=== PATIENT | male | born 1960 | race Caucasian/White ===

== ENCOUNTER 2016-03-19 18:20 | Inpatient (IN) | payer OTHER, MEDICAID ==
[~2016-03-19] VITALS: Ht 167.6 cm; Wt 68.5 kg
[~2016-03-19 18:20] MED LIST: OLAN10TA3 PO; QUET200T PO; SINE25100 PO
[2016-03-19 19:02] LABS: BASOPHILS # (AUTO) 0.16 K/uL (0.00-0.20); BASOPHILS % (AUTO) 1.6 % (0.0-2.0); EOSINOPHILS # (AUTO) 0.08 K/uL (0.00-0.70); EOSINOPHILS % (AUTO) 0.75 % (1.0-6.0); HEMATOCRIT 45.9 % (41-53); HEMOGLOBIN 15.4 g/dL (13.5-17.5); MEAN CORPUSCULAR HEMOGLOBIN 29.6 pg (26.0-34.0); MEAN CORPUSCULAR HGB CONC 33.5 G/dL (31.0-37.0); MEAN CORPUSCULAR VOLUME 88 fL (80-100); MONOCYTES # (AUTO) 0.9 K/uL (0.1-1.0); MONOCYTES % (AUTO) 8.6 % (2.0-9.0); NEUTROPHILS # (AUTO) 7.3 K/uL (1.8-7.7); NEUTROPHILS % (AUTO) 70.1 % (40.0-70.0); PLATELET COUNT (AUTO) 299 K/uL (150-450); RED CELL DISTRIBUTION WIDTH 13.2 % (11.5-14.5); WHITE BLOOD COUNT (AUTO) 10.4 K/uL (4.5-11.0)
[2016-03-19 19:07] LABS: ANION GAP 9 mmol/L (8-16); CALCIUM, TOTAL 9.5 mg/dL (8.8-10.5); CARBON DIOXIDE 31 mmol/L (22-29); CHLORIDE 100 mmol/L (98-107); CREATININE 1.12 mg/dL (0.60-1.30); GLOMERULAR FILTR. RATE CALC > 60 mL/min (>60); SODIUM SERUM 140 mmol/L (136-145); UREA NITROGEN, BLOOD 11 mg/dL (7-18)
[2016-03-19 19:14] LABS: ALANINE AMINOTRANSFERASE 23 U/L (12-78); ALBUMIN 4.1 g/dL (3.4-5.0); ASPARTATE AMINOTRANSFERASE 15 U/L (15-37); BILIRUBIN,TOTAL 0.3 mg/dL (0.1-1.0); TOTAL PROTEIN, SERUM 8.3 g/dL (6.4-8.2)
[2016-03-20] MEDS ORDERED: HALOPERIDOL 5 MG TABLET PO PRN (00:15)
[2016-03-20] MEDS: ZOLPIDEM TARTRATE 10 MG TABLET PO PRN (00:18)
[2016-03-20] MEDS: LORazepam 2 MG TABLET PO PRN ×2 (06:34→15:05)
[2016-03-20 11:07] VITALS: BP 129/84
[2016-03-20] MEDS: CARBIDOPA/LEVODOPA 25-100 MG TABLET PO SCH ×2 (13:00→16:39)
[2016-03-20 14:15] VITALS: BP 132/82
[2016-03-20 16:10] VITALS: BP 129/78
[2016-03-20] MEDS: OLANZapine 10 MG TABLET PO SCH (20:48)
[2016-03-20] MEDS: QUEtiapine FUMARATE 200 MG TABLET PO SCH (20:48)
[2016-03-21 00:45] VITALS: BP 109/62
[2016-03-21] MEDS ORDERED: PNEUMOCOCCAL VACCINE POLYVALENT 0.5 ML VIAL [PPSV23] IM ONE (05:15)
[2016-03-21 09:07] VITALS: BP 112/74
[2016-03-21] MEDS: CARBIDOPA/LEVODOPA 25-100 MG TABLET PO SCH ×3 (09:09→16:06)
[2016-03-21] MEDS: SELENIUM SULFIDE 1% 207 ML SHAMPOO TP SCH (09:09)
[2016-03-21 16:07] VITALS: BP 109/68
[2016-03-21] MEDS: OLANZapine 10 MG TABLET PO SCH (20:14)
[2016-03-21] MEDS: QUEtiapine FUMARATE 200 MG TABLET PO SCH (20:14)
[2016-03-21] MEDS: ZOLPIDEM TARTRATE 10 MG TABLET PO PRN (20:56)
[2016-03-22 00:01] VITALS: BP 105/63
[2016-03-22 08:22] VITALS: BP 114/75
[2016-03-22] MEDS: SELENIUM SULFIDE 1% 207 ML SHAMPOO TP SCH (09:00)
[2016-03-22] MEDS: CARBIDOPA/LEVODOPA 25-100 MG TABLET PO SCH ×3 (10:20→16:14)
[2016-03-22 16:05] VITALS: BP 108/73
[2016-03-22] MEDS: LORazepam 2 MG TABLET PO PRN (16:14)
[2016-03-22] MEDS: OLANZapine 10 MG TABLET PO SCH (20:40)
[2016-03-22] MEDS: QUEtiapine FUMARATE 200 MG TABLET PO SCH (20:40)
[2016-03-22] MEDS: ZOLPIDEM TARTRATE 10 MG TABLET PO PRN (21:28)
[2016-03-23 01:14] VITALS: BP 112/71
[2016-03-23] MEDS: SELENIUM SULFIDE 1% 207 ML SHAMPOO TP SCH ×2 (09:00→09:01)
[2016-03-23] MEDS: CARBIDOPA/LEVODOPA 25-100 MG TABLET PO SCH ×3 (09:01→16:20)
[2016-03-23 09:27] VITALS: BP 109/73
[2016-03-23] MEDS: LORazepam 2 MG TABLET PO PRN (12:41)
[2016-03-23 18:19] VITALS: BP 117/70
[2016-03-23] MEDS: OLANZapine 10 MG TABLET PO SCH (20:40)
[2016-03-23] MEDS: QUEtiapine FUMARATE 200 MG TABLET PO SCH (20:40)
[2016-03-23] MEDS: ZOLPIDEM TARTRATE 10 MG TABLET PO PRN (23:49)
[2016-03-24 00:20] VITALS: BP 106/67
[2016-03-24 08:30] VITALS: BP 108/76
[2016-03-24] MEDS: SELENIUM SULFIDE 1% 207 ML SHAMPOO TP SCH (09:48)
[2016-03-24] MEDS: CARBIDOPA/LEVODOPA 25-100 MG TABLET PO SCH ×3 (09:48→16:31)
[2016-03-24] MEDS: LORazepam 2 MG TABLET PO PRN ×2 (14:55→20:05)
[2016-03-24] MEDS: QUEtiapine FUMARATE 200 MG TABLET PO SCH (20:05)
[2016-03-24] MEDS: OLANZapine 10 MG TABLET PO SCH (20:05)
[2016-03-24 21:15] VITALS: BP 113/73
[2016-03-25] MEDS: ZOLPIDEM TARTRATE 10 MG TABLET PO PRN ×2 (00:03→21:08)
[2016-03-25 00:05] VITALS: BP 119/71
[2016-03-25] MEDS: CARBIDOPA/LEVODOPA 25-100 MG TABLET PO SCH ×3 (08:44→16:41)
[2016-03-25 08:46] VITALS: BP 112/75
[2016-03-25] MEDS: SELENIUM SULFIDE 1% 207 ML SHAMPOO TP SCH (09:17)
[2016-03-25 16:15] VITALS: BP 113/75
[2016-03-25] MEDS: LORazepam 2 MG TABLET PO PRN (19:32)
[2016-03-25] MEDS ORDERED: QUEtiapine FUMARATE 300 MG TABLET PO SCH (21:00)
[2016-03-25] MEDS: OLANZapine 10 MG TABLET PO SCH (21:08)
[2016-03-26 00:05] VITALS: BP 111/71
[2016-03-26 08:24] VITALS: BP 101/65
[2016-03-26] MEDS: CARBIDOPA/LEVODOPA 25-100 MG TABLET PO SCH ×3 (08:32→17:02)
[2016-03-26] MEDS: SELENIUM SULFIDE 1% 207 ML SHAMPOO TP SCH (08:32)
[2016-03-26] MEDS: LORazepam 2 MG TABLET PO PRN (13:15)
[2016-03-26] MEDS: QUEtiapine FUMARATE 200 MG TABLET PO SCH (16:08)
[2016-03-26 16:13] VITALS: BP 111/74
[2016-03-26] MEDS ORDERED: QUEtiapine FUMARATE 300 MG TABLET PO SCH (17:00)
[2016-03-26] MEDS: OLANZapine 10 MG TABLET PO SCH (20:31)
[2016-03-26] MEDS: ZOLPIDEM TARTRATE 10 MG TABLET PO PRN (21:00)
[2016-03-27 00:04] VITALS: BP 114/80
[2016-03-27] MEDS: LORazepam 2 MG TABLET PO PRN (00:08)
[2016-03-27 08:28] VITALS: BP 104/69
[2016-03-27] MEDS: SELENIUM SULFIDE 1% 207 ML SHAMPOO TP SCH (08:47)
[2016-03-27] MEDS: CARBIDOPA/LEVODOPA 25-100 MG TABLET PO SCH ×3 (08:47→16:28)
[2016-03-27] MEDS: QUEtiapine FUMARATE 200 MG TABLET PO SCH ×2 (08:47→16:28)
[2016-03-27 16:03] VITALS: BP 101/71
[2016-03-27] MEDS: OLANZapine 10 MG TABLET PO SCH (20:49)
[2016-03-28 00:35] VITALS: BP 122/80
[2016-03-28] MEDS: ZOLPIDEM TARTRATE 10 MG TABLET PO PRN ×2 (00:39→22:09)
[2016-03-28 08:41] VITALS: BP 121/73
[2016-03-28] MEDS: QUEtiapine FUMARATE 200 MG TABLET PO SCH ×2 (09:45→16:07)
[2016-03-28] MEDS: SELENIUM SULFIDE 1% 207 ML SHAMPOO TP SCH (09:46)
[2016-03-28] MEDS: CARBIDOPA/LEVODOPA 25-100 MG TABLET PO SCH ×3 (09:46→16:07)
[2016-03-28] MEDS: LORazepam 2 MG TABLET PO PRN (12:56)
[2016-03-28 16:11] VITALS: BP 103/67
[2016-03-28] MEDS: OLANZapine 10 MG TABLET PO SCH (20:07)
[2016-03-29] MEDS: LORazepam 2 MG TABLET PO PRN (00:18)
[2016-03-29 04:38] VITALS: BP 107/73
[2016-03-29 08:31] VITALS: BP 117/72
[2016-03-29] MEDS: CARBIDOPA/LEVODOPA 25-100 MG TABLET PO SCH ×2 (09:42→13:34)
[2016-03-29] MEDS: QUEtiapine FUMARATE 200 MG TABLET PO SCH (09:42)
[2016-03-29] MEDS: SELENIUM SULFIDE 1% 207 ML SHAMPOO TP SCH (09:42)
[2016-03-29] MEDS ORDERED: QUET200T PO (11:12)
[2016-04-29] MEDS ORDERED: CLOZ100 PO (13:10)
[2016-04-30] MEDS ORDERED: CLOZ100 PO (12:36)
== END 2016-03-29 13:45 | disposition home or self-care (01) | DRG 885 ==
LOC: EMS 18:22 → B2S 03-20 06:34 → MERGE 03-20 06:34
PROVIDERS: ADMIT Psychiatry & Neurology Psychiatry; ATTEND Psychiatry & Neurology Psychiatry
DX: F20.0 Paranoid schizophrenia (principal); G20 Parkinson's disease; E78.5 Hyperlipidemia, unspecified; J44.9 Chronic obstructive pulmonary disease, unspecified; I10 Essential (primary) hypertension; K59.00 Constipation, unspecified; F17.210 Nicotine dependence, cigarettes, uncomplicated; G89.29 Other chronic pain; Z72.89 Other problems related to lifestyle; Z91.81 History of falling; Z28.21 Immunization not carried out because of patient refusal; Z56.0 Unemployment, unspecified; Z79.899 Other long term (current) drug therapy; Z71.41 Alcohol abuse counseling and surveillance of alcoholic; Z71.6 Tobacco abuse counseling
CPT/HCPCS: 87081; 99285; G0480

== ENCOUNTER 2016-04-08 11:02 | Inpatient (IN) | payer OTHER, MEDICAID ==
[~2016-04-08] VITALS: Ht 170.2 cm; Wt 71.2 kg
[2016-04-08 12:46] LABS: BASOPHILS % (AUTO) 0.2 % (0.0-2.0); EOSINOPHILS % (AUTO) 1.5 % (1.0-6.0); HEMATOCRIT 43.2 % (41-53); HEMOGLOBIN 14.3 g/dL (13.5-17.5); LYMPHOCYTES # (AUTO) 1.3 K/uL (1.0-4.8); LYMPHOCYTES % (AUTO) 15.3 % (22.0-44.0); MEAN CORPUSCULAR HEMOGLOBIN 29.5 pg (26.0-34.0); MEAN CORPUSCULAR HGB CONC 33.1 G/dL (31.0-37.0); MEAN CORPUSCULAR VOLUME 89 fL (80-100); MONOCYTES # (AUTO) 0.6 K/uL (0.1-1.0); MONOCYTES % (AUTO) 6.9 % (2.0-9.0); NEUTROPHILS # (AUTO) 6.6 K/uL (1.8-7.7); NEUTROPHILS % (AUTO) 76.1 % (40.0-70.0); PLATELET COUNT (AUTO) 216 K/uL (150-450); RED BLOOD CELL COUNT(AUTO) 4.86 MIL/uL (4.50-5.90); RED CELL DISTRIBUTION WIDTH 13.2 % (11.5-14.5); WHITE BLOOD COUNT (AUTO) 8.7 K/uL (4.5-11.0)
[2016-04-08 12:57] LABS: ANION GAP 9 mmol/L (8-16); CARBON DIOXIDE 29 mmol/L (22-29); CHLORIDE 103 mmol/L (98-107); CREATININE 1.05 mg/dL (0.60-1.30); GLOMERULAR FILTR. RATE CALC > 60 mL/min (>60); SODIUM SERUM 141 mmol/L (136-145); UREA NITROGEN, BLOOD 14 mg/dL (7-18)
[2016-04-08 13:03] LABS: ALANINE AMINOTRANSFERASE 11 U/L (12-78); ALBUMIN 3.4 g/dL (3.4-5.0); ASPARTATE AMINOTRANSFERASE 8 U/L (15-37); BILIRUBIN,TOTAL 0.3 mg/dL (0.1-1.0); TOTAL PROTEIN, SERUM 7.5 g/dL (6.4-8.2)
[2016-04-08] MEDS ORDERED: HALOPERIDOL 5 MG TABLET PO ONE (15:15)
[2016-04-08] MEDS ORDERED: LORazepam 2 MG TABLET PO ONE (15:15)
[2016-04-08] MEDS ORDERED: HALOPERIDOL 5 MG TABLET PO PRN (17:15)
[2016-04-08] MEDS ORDERED: QUEtiapine FUMARATE 100 MG TABLET PO SCH (17:27)
[2016-04-08] MEDS ORDERED: INFLUENZA VIRUS VACCINE QVS 2016-17 (3YR+)/PF 60 MCG/0.5 ML SYRINGE IM ONE (19:00)
[2016-04-08] MEDS: OLANZapine 10 MG TABLET PO SCH (20:28)
[2016-04-08] MEDS: ZOLPIDEM TARTRATE 10 MG TABLET PO PRN (20:28)
[2016-04-09 00:05] VITALS: BP 120/83
[2016-04-09 08:34] VITALS: BP 115/71
[2016-04-09] MEDS: QUEtiapine FUMARATE 200 MG TABLET PO SCH ×2 (08:39→16:42)
[2016-04-09] MEDS: LORazepam 2 MG TABLET PO PRN (09:10)
[2016-04-09] MEDS ORDERED: IBUPROFEN 600 MG TABLET PO PRN (10:30)
[2016-04-09] MEDS ORDERED: LOPERAMIDE HCL 2 MG CAPSULE PO PRN (10:30)
[2016-04-09] MEDS ORDERED: CloNIDine HCL 0.1 MG TABLET PO PRN (10:30)
[2016-04-09] MEDS ORDERED: BENZOCAINE/MENTHOL LOZENGE MM PRN (10:30)
[2016-04-09] MEDS ORDERED: ALBUTEROL SULFATE HFA 90 MCG/PUFF 8 GM INHALER IH PRN (10:30)
[2016-04-09] MEDS ORDERED: BACITRACIN 28.4 GM OINTMENT TP PRN (10:30)
[2016-04-09] MEDS ORDERED: PETROLATUM,WHITE 71 GM JELLY TP PRN (10:30)
[2016-04-09] MEDS ORDERED: MAG HYDROX/AL HYDROX/SIMETH ES 30 ML SUSPENSION UDCUP PO PRN (10:30)
[2016-04-09] MEDS ORDERED: ONDANSETRON HCL 4 MG TABLET PO PRN (10:30)
[2016-04-09] MEDS ORDERED: MAGNESIUM HYDROXIDE SUSPENSION 30 ML UDCUP PO PRN (10:30)
[2016-04-09] MEDS ORDERED: ACETAMINOPHEN 325 MG TABLET PO PRN (10:30)
[2016-04-09] MEDS: CARBIDOPA/LEVODOPA 25-100 MG TABLET PO SCH ×2 (13:03→16:43)
[2016-04-09 16:45] VITALS: BP 123/69
[2016-04-09] MEDS: OLANZapine 10 MG TABLET PO SCH (20:43)
[2016-04-09] MEDS: SIMVASTATIN 10 MG TABLET PO SCH (20:43)
[2016-04-10 06:06] VITALS: BP 124/88
[2016-04-10 08:19] VITALS: BP 122/79
[2016-04-10] MEDS: CARBIDOPA/LEVODOPA 25-100 MG TABLET PO SCH ×3 (09:30→17:00)
[2016-04-10] MEDS: QUEtiapine FUMARATE 200 MG TABLET PO SCH ×2 (09:30→16:41)
[2016-04-10 16:10] VITALS: BP 105/68
[2016-04-10] MEDS: OLANZapine 10 MG TABLET PO SCH (20:06)
[2016-04-10] MEDS: SIMVASTATIN 10 MG TABLET PO SCH (20:07)
[2016-04-11] MEDS: ZOLPIDEM TARTRATE 10 MG TABLET PO PRN ×2 (00:38→21:15)
[2016-04-11 00:39] VITALS: BP 123/84
[2016-04-11 08:25] VITALS: BP 114/82
[2016-04-11] MEDS: CARBIDOPA/LEVODOPA 25-100 MG TABLET PO SCH ×3 (09:15→16:47)
[2016-04-11] MEDS: QUEtiapine FUMARATE 200 MG TABLET PO SCH ×2 (09:15→16:47)
[2016-04-11 16:22] VITALS: BP 116/71
[2016-04-11] MEDS: OLANZapine 10 MG TABLET PO SCH (20:09)
[2016-04-11] MEDS: SIMVASTATIN 10 MG TABLET PO SCH (20:09)
[2016-04-11] MEDS: LORazepam 2 MG TABLET PO PRN (20:35)
[2016-04-12 04:37] VITALS: BP 112/82
[2016-04-12 08:33] VITALS: BP 123/73
[2016-04-12] MEDS: CARBIDOPA/LEVODOPA 25-100 MG TABLET PO SCH ×3 (08:46→16:45)
[2016-04-12] MEDS: QUEtiapine FUMARATE 200 MG TABLET PO SCH ×2 (08:46→16:45)
[2016-04-12] MEDS: LORazepam 2 MG TABLET PO PRN ×2 (12:40→19:02)
[2016-04-12 16:21] VITALS: BP 117/68
[2016-04-12] MEDS: SIMVASTATIN 10 MG TABLET PO SCH (20:41)
[2016-04-12] MEDS: OLANZapine 10 MG TABLET PO SCH (20:41)
[2016-04-13 03:29] VITALS: BP 115/87
[2016-04-13 08:23] VITALS: BP 106/63
[2016-04-13] MEDS: QUEtiapine FUMARATE 200 MG TABLET PO SCH ×2 (08:41→17:06)
[2016-04-13] MEDS: CARBIDOPA/LEVODOPA 25-100 MG TABLET PO SCH ×3 (08:41→17:06)
[2016-04-13 16:11] VITALS: BP 121/79
[2016-04-13] MEDS: SIMVASTATIN 10 MG TABLET PO SCH (20:38)
[2016-04-13] MEDS: OLANZapine 10 MG TABLET PO SCH (20:38)
[2016-04-13] MEDS: LORazepam 2 MG TABLET PO PRN (21:03)
[2016-04-13] MEDS: ZOLPIDEM TARTRATE 10 MG TABLET PO PRN (22:06)
[2016-04-14 00:23] VITALS: BP 121/80
[2016-04-14] MEDS: QUEtiapine FUMARATE 200 MG TABLET PO SCH ×2 (09:05→16:40)
[2016-04-14] MEDS: CARBIDOPA/LEVODOPA 25-100 MG TABLET PO SCH ×3 (09:06→16:40)
[2016-04-14 09:08] VITALS: BP 124/69
[2016-04-14] MEDS: LORazepam 2 MG TABLET PO PRN ×2 (13:01→21:25)
[2016-04-14 16:13] VITALS: BP 119/73
[2016-04-14] MEDS: SIMVASTATIN 10 MG TABLET PO SCH (20:35)
[2016-04-14] MEDS: OLANZapine 10 MG TABLET PO SCH (20:35)
[2016-04-14] MEDS: ZOLPIDEM TARTRATE 10 MG TABLET PO PRN (22:45)
[2016-04-15 01:07] VITALS: BP 111/77
[2016-04-15 08:35] VITALS: BP 100/58
[2016-04-15] MEDS: QUEtiapine FUMARATE 200 MG TABLET PO SCH ×2 (09:45→16:36)
[2016-04-15] MEDS: CARBIDOPA/LEVODOPA 25-100 MG TABLET PO SCH ×3 (09:46→16:36)
[2016-04-15 16:14] VITALS: BP 122/76
[2016-04-15] MEDS: LORazepam 2 MG TABLET PO PRN (20:02)
[2016-04-15] MEDS: OLANZapine 10 MG TABLET PO SCH (21:04)
[2016-04-15] MEDS: SIMVASTATIN 10 MG TABLET PO SCH (21:04)
[2016-04-15] MEDS: ZOLPIDEM TARTRATE 10 MG TABLET PO PRN (23:03)
[2016-04-16 06:53] VITALS: BP 118/75
[2016-04-16 08:38] VITALS: BP 123/84
[2016-04-16] MEDS: QUEtiapine FUMARATE 200 MG TABLET PO SCH (09:22)
[2016-04-16] MEDS: CARBIDOPA/LEVODOPA 25-100 MG TABLET PO SCH (09:22)
[2016-04-29] MEDS ORDERED: CLOZ100 PO (13:10)
[2016-04-30] MEDS ORDERED: CLOZ100 PO (12:36)
== END 2016-04-16 12:15 | disposition home or self-care (01) | DRG 885 ==
LOC: EMS 11:05 → MERGE 17:17 → B2S 17:17 → B2X 04-09 15:55
PROVIDERS: ADMIT Psychiatry & Neurology Psychiatry; ATTEND Psychiatry & Neurology Psychiatry
DX: F20.0 Paranoid schizophrenia (principal); R45.851 Suicidal ideations; J44.9 Chronic obstructive pulmonary disease, unspecified; G20 Parkinson's disease; K21.9 Gastro-esophageal reflux disease without esophagitis; G47.00 Insomnia, unspecified; E78.5 Hyperlipidemia, unspecified; F17.210 Nicotine dependence, cigarettes, uncomplicated; K59.00 Constipation, unspecified; Z71.6 Tobacco abuse counseling; Z91.14 Patient's other noncompliance with medication regimen; Z28.21 Immunization not carried out because of patient refusal; Z56.0 Unemployment, unspecified
CPT/HCPCS: 87081; 99285; G0480

== ENCOUNTER 2016-07-26 17:08 | Emergency (ER) | payer MEDICARE, MEDICAID ==
[~2016-07-26] VITALS: Ht 170.2 cm; Wt 77.0 kg
[~2016-07-26 17:08] MED LIST changes: +CLOZ100 PO; -OLAN10TA3 PO; -QUET200T PO
[2016-07-26 18:14] LABS: BASOPHILS # (AUTO) 0.03 K/uL (0.00-0.20); BASOPHILS % (AUTO) 0.4 % (0.0-2.0); EOSINOPHILS # (AUTO) 0.16 K/uL (0.00-0.70); EOSINOPHILS % (AUTO) 2.08 % (1.0-6.0); HEMATOCRIT 48.3 % (41-53); LYMPHOCYTES # (AUTO) 1.4 K/uL (1.0-4.8); MEAN CORPUSCULAR HEMOGLOBIN 29.4 pg (26.0-34.0); MEAN CORPUSCULAR HGB CONC 33.1 G/dL (31.0-37.0); MEAN CORPUSCULAR VOLUME 89 fL (80-100); MONOCYTES # (AUTO) 0.7 K/uL (0.1-1.0); MONOCYTES % (AUTO) 8.2 % (2.0-9.0); NEUTROPHILS # (AUTO) 5.6 K/uL (1.8-7.7); NEUTROPHILS % (AUTO) 71.2 % (40.0-70.0); PLATELET COUNT (AUTO) 259 K/uL (150-450); RED BLOOD CELL COUNT(AUTO) 5.43 MIL/uL (4.50-5.90); RED CELL DISTRIBUTION WIDTH 13.7 % (11.5-14.5); WHITE BLOOD COUNT (AUTO) 7.9 K/uL (4.5-11.0)
[2016-07-26 18:23] LABS: ANION GAP 4 mmol/L (8-16); CALCIUM, TOTAL 9.9 mg/dL (8.8-10.5); CARBON DIOXIDE 33 mmol/L (22-29); CHLORIDE 103 mmol/L (98-107); CREATININE 1.27 mg/dL (0.60-1.30); GLOMERULAR FILTR. RATE CALC 59 mL/min (>60); POTASSIUM 4.1 mmol/L (3.5-5.1); SODIUM SERUM 140 mmol/L (136-145); UREA NITROGEN, BLOOD 20 mg/dL (7-18)
[2016-07-26 18:27] VITALS: BP 124/66
[2016-07-26 18:29] LABS: ALANINE AMINOTRANSFERASE 31 U/L (12-78); ASPARTATE AMINOTRANSFERASE 14 U/L (15-37); BILIRUBIN,TOTAL 0.3 mg/dL (0.1-1.0); TOTAL PROTEIN, SERUM 8.2 g/dL (6.4-8.2)
[2016-07-26] MEDS ORDERED: HALOPERIDOL 5 MG TABLET PO ONE (19:00)
== END 2016-07-26 19:25 | disposition home or self-care (01) ==
LOC: EMS 17:10
DX: F20.9 Schizophrenia, unspecified (principal); F41.9 Anxiety disorder, unspecified
CPT/HCPCS: 36415; 80053; 85025; 99284; G0480

== ENCOUNTER 2016-07-27 21:28 | Emergency (ER) | payer MEDICARE, MEDICAID ==
[~2016-07-27] VITALS: Ht 167.6 cm; Wt 68.2 kg
[2016-07-28 00:39] VITALS: BP 125/75
== END 2016-07-28 00:42 | disposition home or self-care (01) ==
LOC: EMS 21:30
DX: F41.9 Anxiety disorder, unspecified (principal); F20.9 Schizophrenia, unspecified; Z79.899 Other long term (current) drug therapy
CPT/HCPCS: 99284

== ENCOUNTER 2016-07-28 15:01 | Inpatient (IN) | payer OTHER, MEDICAID ==
[~2016-07-28] VITALS: Ht 165.1 cm; Wt 73.3 kg
[2016-07-28 16:28] LABS: ANION GAP 10 mmol/L (8-16); CARBON DIOXIDE 30 mmol/L (22-29); CHLORIDE 101 mmol/L (98-107); CREATININE 1.03 mg/dL (0.60-1.30); GLOMERULAR FILTR. RATE CALC > 60 mL/min (>60); POTASSIUM 3.9 mmol/L (3.5-5.1); SODIUM SERUM 141 mmol/L (136-145); UREA NITROGEN, BLOOD 14 mg/dL (7-18)
[2016-07-28 16:33] LABS: BASOPHILS % (AUTO) 0.3 % (0.0-2.0); HEMATOCRIT 45.1 % (41-53); HEMOGLOBIN 15.2 g/dL (13.5-17.5); LYMPHOCYTES # (AUTO) 1.6 K/uL (1.0-4.8); LYMPHOCYTES % (AUTO) 18.7 % (22.0-44.0); MEAN CORPUSCULAR HEMOGLOBIN 29.6 pg (26.0-34.0); MEAN CORPUSCULAR HGB CONC 33.8 G/dL (31.0-37.0); MEAN CORPUSCULAR VOLUME 87 fL (80-100); MONOCYTES % (AUTO) 11.3 % (2.0-9.0); NEUTROPHILS # (AUTO) 5.8 K/uL (1.8-7.7); NEUTROPHILS % (AUTO) 67.7 % (40.0-70.0); PLATELET COUNT (AUTO) 260 K/uL (150-450); RED BLOOD CELL COUNT(AUTO) 5.16 MIL/uL (4.50-5.90); RED CELL DISTRIBUTION WIDTH 13.2 % (11.5-14.5); WHITE BLOOD COUNT (AUTO) 8.6 K/uL (4.5-11.0)
[2016-07-28 16:34] LABS: ALANINE AMINOTRANSFERASE 33 U/L (12-78); ALBUMIN 3.8 g/dL (3.4-5.0); ASPARTATE AMINOTRANSFERASE 30 U/L (15-37); BILIRUBIN,TOTAL 0.6 mg/dL (0.1-1.0); TOTAL PROTEIN, SERUM 7.6 g/dL (6.4-8.2)
[2016-07-28] MEDS ORDERED: HALOPERIDOL 5 MG TABLET PO PRN (17:45)
[2016-07-28] MEDS ORDERED: LORazepam 2 MG TABLET PO ONE (17:45)
[2016-07-28 19:20] VITALS: BP 126/82
[2016-07-28] MEDS: ZOLPIDEM TARTRATE 10 MG TABLET PO PRN (20:55)
[2016-07-29] MEDS: LORazepam 2 MG TABLET PO PRN ×2 (04:38→16:49)
[2016-07-29 04:43] VITALS: BP 113/68
[2016-07-29 06:48] LABS: BASOPHILS % (AUTO) 0.4 % (0.0-2.0); EOSINOPHILS % (AUTO) 4.3 % (1.0-6.0); HEMATOCRIT 45.4 % (41-53); HEMOGLOBIN 15.4 g/dL (13.5-17.5); LYMPHOCYTES # (AUTO) 1.9 K/uL (1.0-4.8); LYMPHOCYTES % (AUTO) 23.8 % (22.0-44.0); MEAN CORPUSCULAR HEMOGLOBIN 29.7 pg (26.0-34.0); MEAN CORPUSCULAR HGB CONC 33.9 G/dL (31.0-37.0); MEAN CORPUSCULAR VOLUME 87 fL (80-100); MONOCYTES # (AUTO) 1.1 K/uL (0.1-1.0); MONOCYTES % (AUTO) 13.5 % (2.0-9.0); NEUTROPHILS # (AUTO) 4.6 K/uL (1.8-7.7); PLATELET COUNT (AUTO) 230 K/uL (150-450); RED BLOOD CELL COUNT(AUTO) 5.19 MIL/uL (4.50-5.90); RED CELL DISTRIBUTION WIDTH 13.6 % (11.5-14.5); WHITE BLOOD COUNT (AUTO) 7.9 K/uL (4.5-11.0)
[2016-07-29 07:29] LABS: ALANINE AMINOTRANSFERASE 31 U/L (12-78); ALBUMIN 3.5 g/dL (3.4-5.0); ANION GAP 5 mmol/L (8-16); ASPARTATE AMINOTRANSFERASE 28 U/L (15-37); BILIRUBIN,TOTAL 0.5 mg/dL (0.1-1.0); CARBON DIOXIDE 32 mmol/L (22-29); CHLORIDE 103 mmol/L (98-107); CHOL/HDL RATIO 3.4 (4.2-7.3); CREATININE 1.03 mg/dL (0.60-1.30); GLOMERULAR FILTR. RATE CALC > 60 mL/min (>60); POTASSIUM 4.1 mmol/L (3.5-5.1); SODIUM SERUM 140 mmol/L (136-145); THYROID STIMULATING HORMONE 2.67 uIU/mL (0.36-3.74); TOTAL PROTEIN, SERUM 7.1 g/dL (6.4-8.2); UREA NITROGEN, BLOOD 13 mg/dL (7-18)
[2016-07-29] MEDS: NICOTINE 7 MG/24 HOUR PATCH TD SCH (08:42)
[2016-07-29] MEDS: CARBIDOPA/LEVODOPA 25-100 MG TABLET PO SCH ×3 (08:42→16:48)
[2016-07-29 09:24] VITALS: BP 112/75
[2016-07-29] MEDS ORDERED: BACITRACIN 28.4 GM OINTMENT TP PRN (10:30)
[2016-07-29] MEDS ORDERED: CloNIDine HCL 0.1 MG TABLET PO PRN (10:30)
[2016-07-29] MEDS ORDERED: LOPERAMIDE HCL 2 MG CAPSULE PO PRN (10:30)
[2016-07-29] MEDS ORDERED: BENZOCAINE/MENTHOL LOZENGE [8 LOZENGES/PACKET] MM PRN (10:30)
[2016-07-29] MEDS ORDERED: ONDANSETRON HCL 4 MG TABLET PO PRN (10:30)
[2016-07-29] MEDS ORDERED: MAG HYDROX/AL HYDROX/SIMETH ES 30 ML SUSPENSION UDCUP PO PRN (10:30)
[2016-07-29] MEDS ORDERED: MAGNESIUM HYDROXIDE SUSPENSION 30 ML UDCUP PO PRN (10:30)
[2016-07-29] MEDS ORDERED: PETROLATUM,WHITE 71 GM JELLY TP PRN (10:30)
[2016-07-29] MEDS ORDERED: ALBUTEROL SULFATE HFA 90 MCG/PUFF 8 GM INHALER IH PRN (10:30)
[2016-07-29] MEDS ORDERED: IBUPROFEN 600 MG TABLET PO PRN (10:30)
[2016-07-29] MEDS ORDERED: ACETAMINOPHEN 325 MG TABLET PO PRN (10:30)
[2016-07-29 16:21] VITALS: BP 111/68
[2016-07-30 05:37] VITALS: BP 115/80
[2016-07-30] MEDS: CARBIDOPA/LEVODOPA 25-100 MG TABLET PO SCH ×3 (08:17→17:46)
[2016-07-30] MEDS: DOCUSATE SODIUM 100 MG CAPSULE PO SCH (08:17)
[2016-07-30] MEDS: NICOTINE 7 MG/24 HOUR PATCH TD SCH (08:17)
[2016-07-30] MEDS: OMEPRAZOLE 20 MG CAPSULE PO SCH (08:17)
[2016-07-30 09:42] VITALS: BP 134/76
[2016-07-30 16:41] VITALS: BP 116/71
[2016-07-30] MEDS: QUEtiapine FUMARATE 25 MG TABLET PO SCH (21:17)
[2016-07-31 06:51] VITALS: BP 114/71
[2016-07-31 08:09] VITALS: BP 111/73
[2016-07-31] MEDS: NICOTINE 7 MG/24 HOUR PATCH TD SCH (08:29)
[2016-07-31] MEDS: CARBIDOPA/LEVODOPA 25-100 MG TABLET PO SCH ×3 (08:29→16:17)
[2016-07-31] MEDS: DOCUSATE SODIUM 100 MG CAPSULE PO SCH (08:29)
[2016-07-31] MEDS: OMEPRAZOLE 20 MG CAPSULE PO SCH (08:29)
[2016-07-31] MEDS: AMANTADINE HCL 100 MG CAPSULE PO SCH ×2 (10:39→21:22)
[2016-07-31 17:05] VITALS: BP 127/79
[2016-07-31] MEDS: LORazepam 2 MG TABLET PO PRN (17:48)
[2016-07-31] MEDS: QUEtiapine FUMARATE 25 MG TABLET PO SCH (20:28)
[2016-07-31 20:30] VITALS: BP 120/80
[2016-07-31 21:35] VITALS: BP 120/80
[2016-08-01 01:23] VITALS: BP 112/70
[2016-08-01 08:10] VITALS: BP 96/60
[2016-08-01] MEDS: NICOTINE 7 MG/24 HOUR PATCH TD SCH (09:00)
[2016-08-01] MEDS: OMEPRAZOLE 20 MG CAPSULE PO SCH (09:13)
[2016-08-01] MEDS: DOCUSATE SODIUM 100 MG CAPSULE PO SCH (09:13)
[2016-08-01] MEDS: CARBIDOPA/LEVODOPA 25-100 MG TABLET PO SCH ×3 (09:13→17:17)
[2016-08-01] MEDS: AMANTADINE HCL 100 MG CAPSULE PO SCH ×2 (09:14→17:17)
[2016-08-01] MEDS: LORazepam 2 MG TABLET PO PRN (12:47)
[2016-08-01 18:22] VITALS: BP 118/76
[2016-08-01] MEDS: ZOLPIDEM TARTRATE 10 MG TABLET PO PRN (20:28)
[2016-08-01] MEDS: QUEtiapine FUMARATE 25 MG TABLET PO SCH (21:26)
[2016-08-02 08:11] VITALS: BP 121/76
[2016-08-02] MEDS: OMEPRAZOLE 20 MG CAPSULE PO SCH (08:21)
[2016-08-02] MEDS: DOCUSATE SODIUM 100 MG CAPSULE PO SCH (08:21)
[2016-08-02] MEDS: NICOTINE 7 MG/24 HOUR PATCH TD SCH (08:22)
[2016-08-02] MEDS: CARBIDOPA/LEVODOPA 25-100 MG TABLET PO SCH ×2 (08:22→12:14)
[2016-08-02] MEDS: AMANTADINE HCL 100 MG CAPSULE PO SCH (08:22)
[2016-08-02] MEDS ORDERED: AMANL PO (08:53)
[2016-08-02] MEDS ORDERED: QUET25TA PO (08:54)
[2016-08-02] MEDS ORDERED: OMEP20 PO (08:55)
[2016-08-02] MEDS ORDERED: DSS100 PO (08:57)
[2016-08-02] MEDS: LORazepam 2 MG TABLET PO PRN (10:32)
== END 2016-08-02 15:31 | disposition home or self-care (01) | DRG 885 ==
LOC: EMS 15:03 → 3EX 18:53
PROVIDERS: ADMIT Psychiatry & Neurology Child & Adolescent Psychiatry; ATTEND Psychiatry & Neurology Child & Adolescent Psychiatry
DX: F29 Unspecified psychosis not due to a substance or known physiological condition (principal); F25.0 Schizoaffective disorder, bipolar type; G20 Parkinson's disease; F41.9 Anxiety disorder, unspecified; J44.9 Chronic obstructive pulmonary disease, unspecified; K21.9 Gastro-esophageal reflux disease without esophagitis; F17.200 Nicotine dependence, unspecified, uncomplicated; E78.5 Hyperlipidemia, unspecified; G47.00 Insomnia, unspecified; K59.00 Constipation, unspecified; Z91.5 Personal history of self-harm; Z71.6 Tobacco abuse counseling; Z56.0 Unemployment, unspecified
CPT/HCPCS: 71020; 84436; 84439; 84443; 99285; G0480

== ENCOUNTER 2016-11-09 21:18 | Emergency (ER) | payer MEDICARE, MEDICAID ==
[~2016-11-09] VITALS: Ht 165.1 cm; Wt 73.0 kg
[~2016-11-09 21:18] MED LIST changes: +AMANL PO; -CLOZ100 PO; +DSS100 PO; +OMEP20 PO; +QUET25TA PO
[2016-11-09 22:54] VITALS: BP 122/80
== END 2016-11-09 23:20 | disposition home or self-care (01) ==
LOC: EMS 21:21
DX: F41.9 Anxiety disorder, unspecified (principal); R45.851 Suicidal ideations; G20 Parkinson's disease; F20.9 Schizophrenia, unspecified
CPT/HCPCS: 99284

== ENCOUNTER 2016-11-11 20:16 | Inpatient (IN) | payer OTHER, MEDICAID ==
[~2016-11-11] VITALS: Ht 170.2 cm; Wt 68.7 kg
[2016-11-11 21:34] LABS: BASOPHILS % (AUTO) 0.3 % (0.0-2.0); EOSINOPHILS % (AUTO) 1.9 % (1.0-6.0); HEMATOCRIT 43.9 % (41-53); HEMOGLOBIN 14.6 g/dL (13.5-17.5); LYMPHOCYTES # (AUTO) 2.4 K/uL (1.0-4.8); LYMPHOCYTES % (AUTO) 26.1 % (22.0-44.0); MEAN CORPUSCULAR HEMOGLOBIN 29.6 pg (26.0-34.0); MEAN CORPUSCULAR HGB CONC 33.4 G/dL (31.0-37.0); MEAN CORPUSCULAR VOLUME 89 fL (80-100); MONOCYTES # (AUTO) 1.2 K/uL (0.1-1.0); MONOCYTES % (AUTO) 13.3 % (2.0-9.0); NEUTROPHILS # (AUTO) 5.4 K/uL (1.8-7.7); NEUTROPHILS % (AUTO) 58.4 % (40.0-70.0); PLATELET COUNT (AUTO) 232 K/uL (150-450); RED BLOOD CELL COUNT(AUTO) 4.94 MIL/uL (4.50-5.90); RED CELL DISTRIBUTION WIDTH 13.7 % (11.5-14.5); WHITE BLOOD COUNT (AUTO) 9.3 K/uL (4.5-11.0)
[2016-11-11 21:36] LABS: ANION GAP 7 mmol/L (8-16); CALCIUM, TOTAL 8.9 mg/dL (8.8-10.5); CARBON DIOXIDE 32 mmol/L (22-29); CHLORIDE 102 mmol/L (98-107); CREATININE 1.06 mg/dL (0.60-1.30); GLOMERULAR FILTR. RATE CALC > 60 mL/min (>60); POTASSIUM 3.8 mmol/L (3.5-5.1); SODIUM SERUM 141 mmol/L (136-145); UREA NITROGEN, BLOOD 13 mg/dL (7-18)
[2016-11-11 21:54] LABS: ALANINE AMINOTRANSFERASE 37 U/L (12-78); ALBUMIN 3.8 g/dL (3.4-5.0); ASPARTATE AMINOTRANSFERASE 40 U/L (15-37); BILIRUBIN,TOTAL 0.5 mg/dL (0.1-1.0); CHOL/HDL RATIO 3.1 (4.2-7.3); THYROID STIMULATING HORMONE 2.67 uIU/mL (0.36-3.74); TOTAL PROTEIN, SERUM 7.6 g/dL (6.4-8.2)
[2016-11-12 01:48] VITALS: BP 129/89
[2016-11-12 02:11] VITALS: BP 129/81
[2016-11-12] MEDS ORDERED: CloNIDine HCL 0.1 MG TABLET PO PRN (07:00)
[2016-11-12] MEDS ORDERED: BENZOCAINE/MENTHOL LOZENGE MM PRN (07:00)
[2016-11-12] MEDS ORDERED: IBUPROFEN 600 MG TABLET PO PRN (07:00)
[2016-11-12] MEDS ORDERED: PETROLATUM,WHITE 71 GM JELLY TP PRN (07:00)
[2016-11-12] MEDS ORDERED: ALBUTEROL SULFATE HFA 90 MCG/PUFF 8 GM INHALER IH PRN (07:00)
[2016-11-12] MEDS ORDERED: MAGNESIUM HYDROXIDE SUSPENSION 30 ML UDCUP PO PRN (07:00)
[2016-11-12] MEDS ORDERED: MAG HYDROX/AL HYDROX/SIMETH ES 30 ML SUSPENSION UDCUP PO PRN (07:00)
[2016-11-12] MEDS ORDERED: BACITRACIN 28.4 GM OINTMENT TP PRN (07:00)
[2016-11-12] MEDS ORDERED: ACETAMINOPHEN 325 MG TABLET PO PRN (07:00)
[2016-11-12] MEDS ORDERED: ONDANSETRON HCL 4 MG TABLET PO PRN (07:00)
[2016-11-12] MEDS ORDERED: LOPERAMIDE HCL 2 MG CAPSULE PO PRN (07:00)
[2016-11-12] MEDS ORDERED: BENZOCAINE/MENTHOL LOZENGE [8 LOZENGES/PACKET] MM PRN (07:15)
[2016-11-12] MEDS: OMEPRAZOLE 20 MG CAPSULE PO SCH (08:08)
[2016-11-12] MEDS: MULTIVITAMINS WITH MINERALS, THERAPEUTIC TABLET PO SCH (08:09)
[2016-11-12] MEDS: DOCUSATE SODIUM 100 MG CAPSULE PO SCH (08:09)
[2016-11-12] MEDS: OMEGA-3/DHA/EPA/FISH OIL 500 MG CAPSULE PO SCH (08:10)
[2016-11-12] MEDS: CARBIDOPA/LEVODOPA 25-100 MG TABLET PO SCH ×3 (08:12→17:44)
[2016-11-12] MEDS: AMANTADINE HCL 100 MG CAPSULE PO SCH ×2 (08:13→17:44)
[2016-11-12 08:17] VITALS: BP 98/59
[2016-11-12 08:33] LABS: APPEARANCE,URINE CLEAR (CLEAR); GLUCOSE, URINE (UA) NEGATIVE (NEGATIVE); KETONES,URINE 40 mg/dL (NEGATIVE); LEUKOCYTE ESTERASE ,URINE NEGATIVE (NEGATIVE); OCCULT BLOOD,URINE NEGATIVE (NEGATIVE); PH,URINE 5.5 (5.0-8.0); PROTEIN,URINE NEGATIVE (NEGATIVE)
[2016-11-12] MEDS ORDERED: AMANTADINE HCL 100 MG CAPSULE PO SCH (09:00)
[2016-11-12 09:14] LABS: RBC,URINE None Seen /HPF (0-2); WBC,URINE None Seen /HPF (0-5)
[2016-11-12 16:05] VITALS: BP 121/73
[2016-11-12] MEDS: QUEtiapine FUMARATE 25 MG TABLET PO SCH (20:54)
[2016-11-13 05:44] VITALS: BP 122/65
[2016-11-13 08:08] VITALS: BP 116/89
[2016-11-13] MEDS: AMANTADINE HCL 100 MG CAPSULE PO SCH ×2 (08:58→16:26)
[2016-11-13] MEDS: OMEPRAZOLE 20 MG CAPSULE PO SCH (08:58)
[2016-11-13] MEDS: MULTIVITAMINS WITH MINERALS, THERAPEUTIC TABLET PO SCH (08:58)
[2016-11-13] MEDS: DOCUSATE SODIUM 100 MG CAPSULE PO SCH (08:58)
[2016-11-13] MEDS: CARBIDOPA/LEVODOPA 25-100 MG TABLET PO SCH ×3 (08:59→16:26)
[2016-11-13] MEDS: OMEGA-3/DHA/EPA/FISH OIL 500 MG CAPSULE PO SCH (08:59)
[2016-11-13 17:00] VITALS: BP 119/59
[2016-11-13] MEDS: QUEtiapine FUMARATE 25 MG TABLET PO SCH (21:05)
[2016-11-14 03:32] VITALS: BP 102/69
[2016-11-14] MEDS: HALOPERIDOL 5 MG TABLET PO PRN ×2 (03:34→09:27)
[2016-11-14] MEDS: OMEGA-3/DHA/EPA/FISH OIL 500 MG CAPSULE PO SCH (08:18)
[2016-11-14] MEDS: CARBIDOPA/LEVODOPA 25-100 MG TABLET PO SCH ×3 (08:18→16:33)
[2016-11-14] MEDS: OMEPRAZOLE 20 MG CAPSULE PO SCH (08:18)
[2016-11-14] MEDS: DOCUSATE SODIUM 100 MG CAPSULE PO SCH (08:18)
[2016-11-14] MEDS: AMANTADINE HCL 100 MG CAPSULE PO SCH ×2 (08:18→16:33)
[2016-11-14] MEDS: MULTIVITAMINS WITH MINERALS, THERAPEUTIC TABLET PO SCH (08:18)
[2016-11-14] MEDS: LORazepam 2 MG TABLET PO PRN (09:28)
[2016-11-14 16:59] VITALS: BP 119/75
[2016-11-14] MEDS: QUEtiapine FUMARATE 25 MG TABLET PO SCH (20:31)
[2016-11-14] MEDS: ZOLPIDEM TARTRATE 10 MG TABLET PO PRN (23:41)
[2016-11-15 03:02] VITALS: BP 132/74
[2016-11-15] MEDS: OMEGA-3/DHA/EPA/FISH OIL 500 MG CAPSULE PO SCH (08:34)
[2016-11-15] MEDS: MULTIVITAMINS WITH MINERALS, THERAPEUTIC TABLET PO SCH (08:34)
[2016-11-15] MEDS: DOCUSATE SODIUM 100 MG CAPSULE PO SCH (08:34)
[2016-11-15] MEDS: CARBIDOPA/LEVODOPA 25-100 MG TABLET PO SCH ×3 (08:34→16:20)
[2016-11-15] MEDS: AMANTADINE HCL 100 MG CAPSULE PO SCH ×2 (08:34→16:20)
[2016-11-15] MEDS: OMEPRAZOLE 20 MG CAPSULE PO SCH (08:34)
[2016-11-15 16:00] VITALS: BP 123/78
[2016-11-15] MEDS: QUEtiapine FUMARATE 25 MG TABLET PO SCH (20:08)
[2016-11-16] MEDS: OMEPRAZOLE 20 MG CAPSULE PO SCH (07:58)
[2016-11-16] MEDS: DOCUSATE SODIUM 100 MG CAPSULE PO SCH (07:58)
[2016-11-16] MEDS: AMANTADINE HCL 100 MG CAPSULE PO SCH ×2 (07:58→16:19)
[2016-11-16] MEDS: CARBIDOPA/LEVODOPA 25-100 MG TABLET PO SCH ×3 (07:58→16:19)
[2016-11-16] MEDS: OMEGA-3/DHA/EPA/FISH OIL 500 MG CAPSULE PO SCH (07:58)
[2016-11-16] MEDS: MULTIVITAMINS WITH MINERALS, THERAPEUTIC TABLET PO SCH (07:58)
[2016-11-16 08:00] VITALS: BP 114/72
[2016-11-16] MEDS: QUEtiapine FUMARATE 25 MG TABLET PO SCH ×2 (09:58→16:19)
[2016-11-16 16:15] VITALS: BP 101/65
[2016-11-16] MEDS: QUEtiapine FUMARATE 100 MG TABLET PO SCH (20:02)
[2016-11-17] MEDS: LORazepam 2 MG TABLET PO PRN ×2 (03:55→18:05)
[2016-11-17] MEDS: HALOPERIDOL 5 MG TABLET PO PRN (03:55)
[2016-11-17 04:01] VITALS: BP 117/71
[2016-11-17 08:00] VITALS: BP 105/64
[2016-11-17] MEDS: OMEPRAZOLE 20 MG CAPSULE PO SCH (08:34)
[2016-11-17] MEDS: CARBIDOPA/LEVODOPA 25-100 MG TABLET PO SCH ×3 (08:35→16:10)
[2016-11-17] MEDS: QUEtiapine FUMARATE 25 MG TABLET PO SCH ×2 (08:35→16:10)
[2016-11-17] MEDS: AMANTADINE HCL 100 MG CAPSULE PO SCH ×2 (08:35→16:10)
[2016-11-17] MEDS: MULTIVITAMINS WITH MINERALS, THERAPEUTIC TABLET PO SCH (08:35)
[2016-11-17] MEDS: OMEGA-3/DHA/EPA/FISH OIL 500 MG CAPSULE PO SCH (08:35)
[2016-11-17] MEDS: DOCUSATE SODIUM 100 MG CAPSULE PO SCH (08:35)
[2016-11-17 19:07] VITALS: BP 133/80
[2016-11-17] MEDS: QUEtiapine FUMARATE 100 MG TABLET PO SCH (20:30)
[2016-11-18] VITALS (11 sets, daily range): BP systolic 99–117; BP diastolic 65–81
[2016-11-18] MEDS: HALOPERIDOL 5 MG TABLET PO PRN (04:30)
[2016-11-18] MEDS: QUEtiapine FUMARATE 25 MG TABLET PO SCH ×2 (08:01→16:12)
[2016-11-18] MEDS: DOCUSATE SODIUM 100 MG CAPSULE PO SCH (08:01)
[2016-11-18] MEDS: OMEGA-3/DHA/EPA/FISH OIL 500 MG CAPSULE PO SCH (08:01)
[2016-11-18] MEDS: CARBIDOPA/LEVODOPA 25-100 MG TABLET PO SCH ×3 (08:02→16:12)
[2016-11-18] MEDS: AMANTADINE HCL 100 MG CAPSULE PO SCH ×2 (08:02→16:12)
[2016-11-18] MEDS: OMEPRAZOLE 20 MG CAPSULE PO SCH (08:02)
[2016-11-18] MEDS: LORazepam 2 MG TABLET PO PRN (08:02)
[2016-11-18] MEDS: MULTIVITAMINS WITH MINERALS, THERAPEUTIC TABLET PO SCH (08:02)
[2016-11-18] MEDS ORDERED: HALOPERIDOL 2 MG TABLET PO PRN (11:30)
[2016-11-18] MEDS: QUEtiapine FUMARATE 100 MG TABLET PO SCH (20:34)
[2016-11-18] MEDS: ZOLPIDEM TARTRATE 10 MG TABLET PO PRN (22:57)
[2016-11-19] MEDS: LORazepam 2 MG TABLET PO PRN (01:57)
[2016-11-19 03:34] VITALS: BP 108/60
[2016-11-19] MEDS: OMEPRAZOLE 20 MG CAPSULE PO SCH (07:59)
[2016-11-19] MEDS: QUEtiapine FUMARATE 25 MG TABLET PO SCH (07:59)
[2016-11-19] MEDS: DOCUSATE SODIUM 100 MG CAPSULE PO SCH (07:59)
[2016-11-19] MEDS: CARBIDOPA/LEVODOPA 25-100 MG TABLET PO SCH ×2 (07:59→13:00)
[2016-11-19] MEDS: MULTIVITAMINS WITH MINERALS, THERAPEUTIC TABLET PO SCH (07:59)
[2016-11-19] MEDS: OMEGA-3/DHA/EPA/FISH OIL 500 MG CAPSULE PO SCH (08:00)
[2016-11-19] MEDS: AMANTADINE HCL 100 MG CAPSULE PO SCH (08:00)
[2016-11-19 10:38] VITALS: BP 125/84
[2016-11-19] MEDS ORDERED: QUET25TA PO (10:57)
[2016-11-19] MEDS ORDERED: OMEG100033 PO (11:05)
[2016-11-19] MEDS ORDERED: MULT-685 PO (11:06)
== END 2016-11-19 12:30 | disposition home or self-care (01) | DRG 885 ==
LOC: EMS 20:18 → 3EX 23:18
PROVIDERS: ADMIT Psychiatry & Neurology Child & Adolescent Psychiatry
DX: F20.0 Paranoid schizophrenia (principal); G20 Parkinson's disease; R45.851 Suicidal ideations; F12.90 Cannabis use, unspecified, uncomplicated; J44.9 Chronic obstructive pulmonary disease, unspecified; E78.5 Hyperlipidemia, unspecified; K21.9 Gastro-esophageal reflux disease without esophagitis; G47.00 Insomnia, unspecified; Z72.0 Tobacco use; I10 Essential (primary) hypertension; K59.00 Constipation, unspecified
CPT/HCPCS: 80307; 84443; 99285; G0480

== ENCOUNTER 2016-12-01 15:37 | Emergency (ER) | payer OTHER, MEDICAID ==
[~2016-12-01] VITALS: Ht 165.1 cm; Wt 65.9 kg
[~2016-12-01 15:37] MED LIST changes: +MULT-685 PO; +OMEG100033 PO
[2016-12-01 18:59] VITALS: BP 125/75
== END 2016-12-01 19:06 | disposition home or self-care (01) ==
LOC: EMS 15:44
DX: M79.661 Pain in right lower leg (principal); F20.9 Schizophrenia, unspecified; F41.9 Anxiety disorder, unspecified
CPT/HCPCS: 99284

== ENCOUNTER 2016-12-02 09:23 | Inpatient (IN) | payer OTHER, MEDICAID ==
[~2016-12-02] VITALS: Ht 167.6 cm; Wt 69.5 kg
[2016-12-02 10:40] LABS: BASOPHILS % (AUTO) 0.3 % (0.0-2.0); EOSINOPHILS % (AUTO) 1.4 % (1.0-6.0); HEMOGLOBIN 14.6 g/dL (13.5-17.5); LYMPHOCYTES # (AUTO) 1.2 K/uL (1.0-4.8); MEAN CORPUSCULAR HEMOGLOBIN 29.7 pg (26.0-34.0); MEAN CORPUSCULAR HGB CONC 33.9 G/dL (31.0-37.0); MEAN CORPUSCULAR VOLUME 88 fL (80-100); MONOCYTES # (AUTO) 0.6 K/uL (0.1-1.0); MONOCYTES % (AUTO) 7.5 % (2.0-9.0); NEUTROPHILS # (AUTO) 6.4 K/uL (1.8-7.7); NEUTROPHILS % (AUTO) 76.8 % (40.0-70.0); PLATELET COUNT (AUTO) 333 K/uL (150-450); WHITE BLOOD COUNT (AUTO) 8.3 K/uL (4.5-11.0)
[2016-12-02 11:08] LABS: ANION GAP 7 mmol/L (8-16); CALCIUM, TOTAL 9.4 mg/dL (8.8-10.5); CARBON DIOXIDE 31 mmol/L (22-29); CHLORIDE 103 mmol/L (98-107); CREATININE 0.94 mg/dL (0.60-1.30); GLOMERULAR FILTR. RATE CALC > 60 mL/min (>60); POTASSIUM 4.3 mmol/L (3.5-5.1); SODIUM SERUM 141 mmol/L (136-145); UREA NITROGEN, BLOOD 9 mg/dL (7-18)
[2016-12-02 11:13] LABS: ALANINE AMINOTRANSFERASE 60 U/L (12-78); ALBUMIN 3.7 g/dL (3.4-5.0); ASPARTATE AMINOTRANSFERASE 19 U/L (15-37); BILIRUBIN,TOTAL 0.4 mg/dL (0.1-1.0); TOTAL PROTEIN, SERUM 8.3 g/dL (6.4-8.2)
[2016-12-02] MEDS: HALOPERIDOL 5 MG TABLET PO PRN (13:31)
[2016-12-02 13:34] LABS: THYROID STIMULATING HORMONE 1.15 uIU/mL (0.36-3.74)
[2016-12-02 16:20] VITALS: BP 115/79
[2016-12-03] MEDS: ZOLPIDEM TARTRATE 10 MG TABLET PO PRN (00:45)
[2016-12-03 01:01] VITALS: BP 119/79
[2016-12-03] MEDS ORDERED: PNEUMOCOCCAL VACCINE POLYVALENT 0.5 ML VIAL [PPSV23] IM ONE (04:00)
[2016-12-03 08:36] VITALS: BP 117/72
[2016-12-03] MEDS: NICOTINE 21 MG/24 HOUR PATCH TD SCH (08:54)
[2016-12-03] MEDS ORDERED: MAG HYDROX/AL HYDROX/SIMETH ES 30 ML SUSPENSION UDCUP PO PRN (09:30)
[2016-12-03] MEDS ORDERED: BACITRACIN 28.4 GM OINTMENT TP PRN (09:30)
[2016-12-03] MEDS ORDERED: LOPERAMIDE HCL 2 MG CAPSULE PO PRN (09:30)
[2016-12-03] MEDS ORDERED: PETROLATUM,WHITE 71 GM JELLY TP PRN (09:30)
[2016-12-03] MEDS ORDERED: ONDANSETRON HCL 4 MG TABLET PO PRN (09:30)
[2016-12-03] MEDS ORDERED: IBUPROFEN 600 MG TABLET PO PRN (09:30)
[2016-12-03] MEDS ORDERED: CloNIDine HCL 0.1 MG TABLET PO PRN (09:30)
[2016-12-03] MEDS ORDERED: MAGNESIUM HYDROXIDE SUSPENSION 30 ML UDCUP PO PRN (09:30)
[2016-12-03] MEDS ORDERED: ALBUTEROL SULFATE HFA 90 MCG/PUFF 8 GM INHALER IH PRN (09:30)
[2016-12-03] MEDS ORDERED: BENZOCAINE/MENTHOL LOZENGE MM PRN (09:30)
[2016-12-03] MEDS ORDERED: ACETAMINOPHEN 325 MG TABLET PO PRN (09:30)
[2016-12-03] MEDS: CARBIDOPA/LEVODOPA 25-100 MG TABLET PO SCH ×2 (12:16→16:26)
[2016-12-03] MEDS: DIVALPROEX SODIUM 500 MG DR TABLET PO SCH ×2 (12:16→16:26)
[2016-12-03 16:10] VITALS: BP 123/73
[2016-12-03] MEDS: AMANTADINE HCL 100 MG CAPSULE PO SCH (16:26)
[2016-12-03] MEDS: RisperiDONE 3 MG TABLET PO SCH (20:30)
[2016-12-04 01:48] VITALS: BP 113/70
[2016-12-04 08:00] VITALS: BP 113/73
[2016-12-04] MEDS: DOCUSATE SODIUM 100 MG CAPSULE PO SCH (08:24)
[2016-12-04] MEDS: DIVALPROEX SODIUM 500 MG DR TABLET PO SCH ×2 (08:24→16:30)
[2016-12-04] MEDS: OMEPRAZOLE 20 MG CAPSULE PO SCH (08:24)
[2016-12-04] MEDS: AMANTADINE HCL 100 MG CAPSULE PO SCH ×2 (08:24→16:31)
[2016-12-04] MEDS: CARBIDOPA/LEVODOPA 25-100 MG TABLET PO SCH ×3 (08:25→16:31)
[2016-12-04] MEDS: OMEGA-3/DHA/EPA/FISH OIL 500 MG CAPSULE PO SCH (08:25)
[2016-12-04] MEDS: NICOTINE 21 MG/24 HOUR PATCH TD SCH (08:25)
[2016-12-04] MEDS: MULTIVITAMINS WITH MINERALS, THERAPEUTIC TABLET PO SCH (08:25)
[2016-12-04] MEDS: HALOPERIDOL 5 MG TABLET PO PRN (09:45)
[2016-12-04 16:20] VITALS: BP 112/70
[2016-12-04] MEDS: RisperiDONE 3 MG TABLET PO SCH (20:28)
[2016-12-05 01:36] VITALS: BP 110/69
[2016-12-05] MEDS: LORazepam 2 MG TABLET PO PRN (03:40)
[2016-12-05 03:43] VITALS: BP 112/68
[2016-12-05 08:27] VITALS: BP 97/61
[2016-12-05] MEDS: DOCUSATE SODIUM 100 MG CAPSULE PO SCH (09:24)
[2016-12-05] MEDS: CARBIDOPA/LEVODOPA 25-100 MG TABLET PO SCH ×3 (09:24→16:33)
[2016-12-05] MEDS: OMEPRAZOLE 20 MG CAPSULE PO SCH (09:24)
[2016-12-05] MEDS: AMANTADINE HCL 100 MG CAPSULE PO SCH ×2 (09:24→16:33)
[2016-12-05] MEDS: DIVALPROEX SODIUM 500 MG DR TABLET PO SCH ×2 (09:24→16:32)
[2016-12-05] MEDS: OMEGA-3/DHA/EPA/FISH OIL 500 MG CAPSULE PO SCH (09:24)
[2016-12-05] MEDS: MULTIVITAMINS WITH MINERALS, THERAPEUTIC TABLET PO SCH (09:24)
[2016-12-05] MEDS: NICOTINE 21 MG/24 HOUR PATCH TD SCH (09:25)
[2016-12-05] MEDS: HALOPERIDOL 5 MG TABLET PO PRN (11:04)
[2016-12-05 16:22] VITALS: BP 113/75
[2016-12-05] MEDS: RisperiDONE 3 MG TABLET PO SCH (20:11)
[2016-12-06 00:15] VITALS: BP 121/69
[2016-12-06] MEDS: ZOLPIDEM TARTRATE 10 MG TABLET PO PRN (00:18)
[2016-12-06] MEDS: LORazepam 2 MG TABLET PO PRN (06:08)
[2016-12-06] MEDS: OMEGA-3/DHA/EPA/FISH OIL 500 MG CAPSULE PO SCH (08:11)
[2016-12-06] MEDS: MULTIVITAMINS WITH MINERALS, THERAPEUTIC TABLET PO SCH (08:11)
[2016-12-06] MEDS: OMEPRAZOLE 20 MG CAPSULE PO SCH (08:11)
[2016-12-06] MEDS: AMANTADINE HCL 100 MG CAPSULE PO SCH (08:11)
[2016-12-06] MEDS: CARBIDOPA/LEVODOPA 25-100 MG TABLET PO SCH ×2 (08:11→12:48)
[2016-12-06] MEDS: DIVALPROEX SODIUM 500 MG DR TABLET PO SCH (08:11)
[2016-12-06] MEDS: DOCUSATE SODIUM 100 MG CAPSULE PO SCH (08:11)
[2016-12-06] MEDS: NICOTINE 21 MG/24 HOUR PATCH TD SCH (08:15)
[2016-12-06] MEDS: HALOPERIDOL 5 MG TABLET PO PRN (08:53)
[2016-12-06 09:07] VITALS: BP 113/80
[2016-12-06] MEDS ORDERED: DIVA250T4 PO (14:01)
[2016-12-06] MEDS ORDERED: RISP3TAB44 PO (14:01)
== END 2016-12-06 15:00 | disposition home or self-care (01) | DRG 885 ==
LOC: EMS 09:26 → B2X 13:38
PROVIDERS: ADMIT Psychiatry & Neurology Psychiatry; ATTEND Psychiatry & Neurology Psychiatry
DX: F20.0 Paranoid schizophrenia (principal); G20 Parkinson's disease; F41.9 Anxiety disorder, unspecified; J44.9 Chronic obstructive pulmonary disease, unspecified; K21.9 Gastro-esophageal reflux disease without esophagitis; I10 Essential (primary) hypertension; G47.00 Insomnia, unspecified; E78.5 Hyperlipidemia, unspecified; K59.00 Constipation, unspecified; F12.90 Cannabis use, unspecified, uncomplicated; F17.210 Nicotine dependence, cigarettes, uncomplicated; Z59.0 Homelessness; Z79.899 Other long term (current) drug therapy; Z71.51 Drug abuse counseling and surveillance of drug abuser; Z71.6 Tobacco abuse counseling
CPT/HCPCS: 84439; 84443; 87081; 90471; 99285; 99406; G0480

== ENCOUNTER 2017-04-16 01:46 | Emergency (ER) | payer OTHER, MEDICAID ==
[~2017-04-16] VITALS: Ht 165.1 cm; Wt 61.5 kg
[~2017-04-16 01:46] MED LIST changes: +DIVA250T4 PO; -QUET25TA PO; +RISP3TAB44 PO
[2017-04-16 02:40] LABS: BASOPHILS % (AUTO) 0.5 % (0.0-2.0); EOSINOPHILS % (AUTO) 1.5 % (1.0-6.0); HEMATOCRIT 43.2 % (41-53); HEMOGLOBIN 14.9 g/dL (13.5-17.5); LYMPHOCYTES # (AUTO) 1.5 K/uL (1.0-4.8); LYMPHOCYTES % (AUTO) 19.8 % (22.0-44.0); MEAN CORPUSCULAR HEMOGLOBIN 30.2 pg (26.0-34.0); MEAN CORPUSCULAR HGB CONC 34.6 G/dL (31.0-37.0); MEAN CORPUSCULAR VOLUME 88 fL (80-100); MONOCYTES # (AUTO) 0.8 K/uL (0.1-1.0); MONOCYTES % (AUTO) 10.2 % (2.0-9.0); NEUTROPHILS # (AUTO) 5.1 K/uL (1.8-7.7); PLATELET COUNT (AUTO) 227 K/uL (150-450); RED BLOOD CELL COUNT(AUTO) 4.94 MIL/uL (4.50-5.90); RED CELL DISTRIBUTION WIDTH 13.4 % (11.5-14.5)
[2017-04-16 02:47] LABS: ANION GAP 8 mmol/L (8-16); CALCIUM, TOTAL 9.4 mg/dL (8.8-10.5); CARBON DIOXIDE 31 mmol/L (22-29); CHLORIDE 101 mmol/L (98-107); CREATININE 0.82 mg/dL (0.60-1.30); GLOMERULAR FILTR. RATE CALC > 60 mL/min (>60); GLUCOSE,RANDOM 106 mg/dL (70-110); POTASSIUM 3.9 mmol/L (3.5-5.1); SODIUM SERUM 140 mmol/L (136-145); UREA NITROGEN, BLOOD 15 mg/dL (7-18)
[2017-04-16 02:54] LABS: ALANINE AMINOTRANSFERASE 20 U/L (12-78); ALBUMIN 3.8 g/dL (3.4-5.0); ALKALINE PHOSPHATASE 99 U/L (46-116); ASPARTATE AMINOTRANSFERASE 15 U/L (15-37); BILIRUBIN,TOTAL 0.4 mg/dL (0.1-1.0); TOTAL PROTEIN, SERUM 8.1 g/dL (6.4-8.2); VALPROIC ACID 32 mcg/mL (50-100)
[2017-04-16] MEDS ORDERED: LORazepam 1 MG TABLET PO ONE (05:15)
[2017-04-16 06:40] VITALS: BP 144/82
== END 2017-04-16 06:51 | disposition home or self-care (01) ==
LOC: EMS 01:47
DX: F25.9 Schizoaffective disorder, unspecified (principal); F41.9 Anxiety disorder, unspecified; F17.210 Nicotine dependence, cigarettes, uncomplicated; G20 Parkinson's disease; Z71.6 Tobacco abuse counseling; Z79.899 Other long term (current) drug therapy
CPT/HCPCS: 36415; 80053; 80164; 85025; 99284; 99406; G0480

== ENCOUNTER 2017-05-12 21:40 | Emergency (ER) | payer MEDICARE, MEDICAID ==
[~2017-05-12] VITALS: Ht 172.7 cm; Wt 81.8 kg
[2017-05-12 22:44] LABS: BASOPHILS % (AUTO) 0.4 % (0.0-2.0); EOSINOPHILS % (AUTO) 3.8 % (1.0-6.0); HEMATOCRIT 42.9 % (41-53); HEMOGLOBIN 14.6 g/dL (13.5-17.5); LYMPHOCYTES # (AUTO) 1.8 K/uL (1.0-4.8); LYMPHOCYTES % (AUTO) 25.7 % (22.0-44.0); MEAN CORPUSCULAR HGB CONC 34.2 G/dL (31.0-37.0); MEAN CORPUSCULAR VOLUME 88 fL (80-100); MONOCYTES # (AUTO) 0.7 K/uL (0.1-1.0); MONOCYTES % (AUTO) 10.2 % (2.0-9.0); NEUTROPHILS # (AUTO) 4.2 K/uL (1.8-7.7); NEUTROPHILS % (AUTO) 59.9 % (40.0-70.0); PLATELET COUNT (AUTO) 237 K/uL (150-450); RED BLOOD CELL COUNT(AUTO) 4.89 MIL/uL (4.50-5.90); RED CELL DISTRIBUTION WIDTH 13.5 % (11.5-14.5)
[2017-05-12 23:05] LABS: AMPHET/METH SCREEN,URINE NEGATIVE (NEGATIVE); BARBITURATE SCREEN, URINE NEGATIVE (NEGATIVE); BENZODIAZEPINES SCREEN,URINE NEGATIVE (NEGATIVE); CANNABINOID SCREEN,URINE POSITIVE (NEGATIVE); COCAINE SCREEN,URINE NEGATIVE (NEGATIVE); METHADONE SCREEN, URINE NEGATIVE (NEGATIVE); OPIATE SCREEN,URINE NEGATIVE (NEGATIVE); PHENCYCLIDINE SCREEN,URINE NEGATIVE (NEGATIVE)
[2017-05-12 23:16] LABS: ANION GAP 8 mmol/L (8-16); CALCIUM, TOTAL 9.4 mg/dL (8.8-10.5); CARBON DIOXIDE 29 mmol/L (22-29); CHLORIDE 100 mmol/L (98-107); CREATININE 1.12 mg/dL (0.60-1.30); GLOMERULAR FILTR. RATE CALC > 60 mL/min (>60); GLUCOSE,RANDOM 102 mg/dL (70-110); POTASSIUM 4.2 mmol/L (3.5-5.1); SODIUM SERUM 137 mmol/L (136-145); UREA NITROGEN, BLOOD 16 mg/dL (7-18)
[2017-05-12 23:22] LABS: ALANINE AMINOTRANSFERASE 25 U/L (12-78); ALBUMIN 3.6 g/dL (3.4-5.0); ALKALINE PHOSPHATASE 98 U/L (46-116); ASPARTATE AMINOTRANSFERASE 19 U/L (15-37); BILIRUBIN,TOTAL 0.2 mg/dL (0.1-1.0)
[2017-05-13 01:53] VITALS: BP 138/80
== END 2017-05-13 02:21 | disposition home or self-care (01) ==
LOC: EMS 21:41
DX: F12.90 Cannabis use, unspecified, uncomplicated (principal); F20.9 Schizophrenia, unspecified; F17.210 Nicotine dependence, cigarettes, uncomplicated
CPT/HCPCS: 36415; 80053; 80307; 85025; 99284; G0480

== ENCOUNTER 2017-05-16 14:19 | Inpatient (IN) | payer OTHER, MEDICAID ==
[~2017-05-16] VITALS: Ht 167.6 cm; Wt 68.3 kg
[2017-05-16 14:39] VITALS: BP 117/83
[2017-05-16] MEDS ORDERED: MAG HYDROX/AL HYDROX/SIMETH ES 30 ML SUSPENSION UDCUP PO PRN (15:00)
[2017-05-16] MEDS ORDERED: MAGNESIUM HYDROXIDE SUSPENSION 30 ML UDCUP PO PRN (15:00)
[2017-05-16] MEDS ORDERED: ACETAMINOPHEN 325 MG TABLET PO PRN (15:00)
[2017-05-16] MEDS ORDERED: LOPERAMIDE HCL 2 MG CAPSULE PO PRN (15:00)
[2017-05-16] MEDS ORDERED: HydrOXYzine PAMOATE 50 MG CAPSULE PO PRN (15:00)
[2017-05-16] MEDS ORDERED: QUEtiapine FUMARATE 100 MG TABLET PO PRN (15:00)
[2017-05-16] MEDS ORDERED: PROMETHAZINE HCL 25 MG TABLET PO PRN (15:00)
[2017-05-16] MEDS ORDERED: GuaiFENesin/D-METHORPHAN [SUGAR-FREE] 200-20MG/10 ML SYRUP UDCUP PO PRN (15:00)
[2017-05-16] MEDS ORDERED: TUBERCULIN, PURIFIED PROTEIN DERIVATIVE 5 TU/0.1 ML SYG ID ONE (15:00)
[2017-05-16] MEDS ORDERED: LORazepam 2 MG TABLET PO PRN (15:00)
[2017-05-16] MEDS ORDERED: ZOLPIDEM TARTRATE 10 MG TABLET PO PRN (15:00)
[2017-05-16] MEDS ORDERED: DIVA500T35 PO (16:04)
[2017-05-16] MEDS ORDERED: AMAN100C12 PO (16:04)
[2017-05-16 16:20] VITALS: BP 125/77
[2017-05-16] MEDS ORDERED: PNEUMOCOCCAL VACCINE POLYVALENT 0.5 ML VIAL [PPSV23] IM ONE (16:45)
[2017-05-16] MEDS: THIAMINE HCL 100 MG TABLET PO SCH (18:12)
[2017-05-16] MEDS ORDERED: QUEtiapine FUMARATE 200 MG TABLET PO SCH (21:00)
[2017-05-16] MEDS: DIVALPROEX SODIUM 500 MG ER TABLET PO SCH (21:15)
[2017-05-16] MEDS: AMANTADINE HCL 100 MG CAPSULE PO SCH (21:45)
[2017-05-17 00:11] VITALS: BP 119/70
[2017-05-17] MEDS: OMEGA-3/DHA/EPA/FISH OIL 1,000 MG CAPSULE PO SCH (08:37)
[2017-05-17] MEDS: FOLIC ACID 1 MG TABLET PO SCH (08:37)
[2017-05-17] MEDS: MULTIVITAMINS WITH MINERALS, THERAPEUTIC TABLET PO SCH (08:37)
[2017-05-17] MEDS: AMANTADINE HCL 100 MG CAPSULE PO SCH ×3 (08:37→16:40)
[2017-05-17] MEDS: THIAMINE HCL 100 MG TABLET PO SCH ×2 (08:37→16:40)
[2017-05-17] MEDS: NICOTINE 14 MG/24 HOUR PATCH TD SCH (08:38)
[2017-05-17 08:42] VITALS: BP 128/71
[2017-05-17] MEDS: CARBIDOPA/LEVODOPA 25-100 MG TABLET PO SCH ×2 (12:41→16:40)
[2017-05-17 16:17] VITALS: BP 120/74
[2017-05-17] MEDS: QUEtiapine FUMARATE 200 MG TABLET PO SCH (20:36)
[2017-05-17] MEDS: DIVALPROEX SODIUM 500 MG ER TABLET PO SCH (20:36)
[2017-05-18 08:18] VITALS: BP 103/61
[2017-05-18] MEDS: CARBIDOPA/LEVODOPA 25-100 MG TABLET PO SCH ×3 (09:04→16:27)
[2017-05-18] MEDS: THIAMINE HCL 100 MG TABLET PO SCH ×2 (09:04→16:27)
[2017-05-18] MEDS: FOLIC ACID 1 MG TABLET PO SCH (09:04)
[2017-05-18] MEDS: OMEGA-3/DHA/EPA/FISH OIL 1,000 MG CAPSULE PO SCH (09:04)
[2017-05-18] MEDS: AMANTADINE HCL 100 MG CAPSULE PO SCH ×3 (09:04→16:27)
[2017-05-18] MEDS: MULTIVITAMINS WITH MINERALS, THERAPEUTIC TABLET PO SCH (09:04)
[2017-05-18] MEDS: NICOTINE 14 MG/24 HOUR PATCH TD SCH (09:05)
[2017-05-18 09:43] LABS: BASOPHILS % (AUTO) 0.4 % (0.0-2.0); EOSINOPHILS % (AUTO) 5.8 % (1.0-6.0); HEMATOCRIT 41.5 % (41-53); HEMOGLOBIN 14.4 g/dL (13.5-17.5); LYMPHOCYTES # (AUTO) 1.8 K/uL (1.0-4.8); LYMPHOCYTES % (AUTO) 27.4 % (22.0-44.0); MEAN CORPUSCULAR HEMOGLOBIN 30.1 pg (26.0-34.0); MEAN CORPUSCULAR HGB CONC 34.7 G/dL (31.0-37.0); MEAN CORPUSCULAR VOLUME 87 fL (80-100); MONOCYTES # (AUTO) 0.8 K/uL (0.1-1.0); MONOCYTES % (AUTO) 11.5 % (2.0-9.0); NEUTROPHILS # (AUTO) 3.7 K/uL (1.8-7.7); NEUTROPHILS % (AUTO) 54.9 % (40.0-70.0); PLATELET COUNT (AUTO) 209 K/uL (150-450); RED BLOOD CELL COUNT(AUTO) 4.77 MIL/uL (4.50-5.90); RED CELL DISTRIBUTION WIDTH 13.3 % (11.5-14.5)
[2017-05-18 10:32] LABS: ALANINE AMINOTRANSFERASE 13 U/L (12-78); ALBUMIN 3.1 g/dL (3.4-5.0); ALKALINE PHOSPHATASE 86 U/L (46-116); ANION GAP 9 mmol/L (8-16); ASPARTATE AMINOTRANSFERASE 15 U/L (15-37); BILIRUBIN,TOTAL 0.4 mg/dL (0.1-1.0); CARBON DIOXIDE 28 mmol/L (22-29); CHLORIDE 103 mmol/L (98-107); CHOL/HDL RATIO 2.9 (4.2-7.3); CHOLESTEROL 166 mg/dL (131-200); CREATININE 0.94 mg/dL (0.60-1.30); FREE T4 (FREE THYROXINE) 1.01 ng/dL (0.76-1.46); GLOMERULAR FILTR. RATE CALC > 60 mL/min (>60); GLUCOSE,RANDOM 93 mg/dL (70-110); HDL CHOLESTEROL 57 mg/dL (40-60); LDL CHOL (CALC.) 94 mg/dL (0-130); POTASSIUM 3.7 mmol/L (3.5-5.1); SODIUM SERUM 140 mmol/L (136-145); THYROID STIMULATING HORMONE 1.58 uIU/mL (0.36-3.74); TRIGLYCERIDES 77 mg/dL (15-150); UREA NITROGEN, BLOOD 16 mg/dL (7-18); VALPROIC ACID 57 mcg/mL (50-100)
[2017-05-18 15:56] LABS: HEMOGLOBIN A1C 5.8 % (4.5-6.2)
[2017-05-18 16:31] VITALS: BP 104/63
[2017-05-18] MEDS: DIVALPROEX SODIUM 500 MG ER TABLET PO SCH (20:37)
[2017-05-18] MEDS: QUEtiapine FUMARATE 200 MG TABLET PO SCH (20:37)
[2017-05-19 06:28] VITALS: BP 103/66
[2017-05-19 08:00] VITALS: BP 97/60
[2017-05-19] MEDS: THIAMINE HCL 100 MG TABLET PO SCH ×2 (08:34→16:41)
[2017-05-19] MEDS: MULTIVITAMINS WITH MINERALS, THERAPEUTIC TABLET PO SCH (08:34)
[2017-05-19] MEDS: CARBIDOPA/LEVODOPA 25-100 MG TABLET PO SCH ×3 (08:34→16:41)
[2017-05-19] MEDS: AMANTADINE HCL 100 MG CAPSULE PO SCH ×3 (08:34→16:41)
[2017-05-19] MEDS: OMEGA-3/DHA/EPA/FISH OIL 1,000 MG CAPSULE PO SCH (08:34)
[2017-05-19] MEDS: FOLIC ACID 1 MG TABLET PO SCH (08:34)
[2017-05-19] MEDS: NICOTINE 14 MG/24 HOUR PATCH TD SCH (08:41)
[2017-05-19 16:20] VITALS: BP 102/66
[2017-05-19] MEDS: QUEtiapine FUMARATE 200 MG TABLET PO SCH (20:34)
[2017-05-19] MEDS: DIVALPROEX SODIUM 500 MG ER TABLET PO SCH (20:34)
[2017-05-20 06:31] VITALS: BP 107/67
[2017-05-20] MEDS: FLUoxetine HCL 10 MG CAPSULE PO SCH (08:24)
[2017-05-20] MEDS: CARBIDOPA/LEVODOPA 25-100 MG TABLET PO SCH ×3 (08:24→16:39)
[2017-05-20] MEDS: AMANTADINE HCL 100 MG CAPSULE PO SCH ×3 (08:24→16:39)
[2017-05-20] MEDS: THIAMINE HCL 100 MG TABLET PO SCH ×2 (08:24→16:39)
[2017-05-20] MEDS: OMEGA-3/DHA/EPA/FISH OIL 1,000 MG CAPSULE PO SCH (08:24)
[2017-05-20] MEDS: MULTIVITAMINS WITH MINERALS, THERAPEUTIC TABLET PO SCH (08:25)
[2017-05-20] MEDS: FOLIC ACID 1 MG TABLET PO SCH (08:25)
[2017-05-20] MEDS: NICOTINE 14 MG/24 HOUR PATCH TD SCH (08:32)
[2017-05-20 08:47] VITALS: BP 102/60
[2017-05-20 18:24] VITALS: BP 100/65
[2017-05-20 18:48] VITALS: BP 118/76
[2017-05-20] MEDS: QUEtiapine FUMARATE 200 MG TABLET PO SCH (20:37)
[2017-05-20] MEDS: DIVALPROEX SODIUM 500 MG ER TABLET PO SCH (20:37)
[2017-05-21 06:23] VITALS: BP 111/69
[2017-05-21 08:00] VITALS: BP 111/65
[2017-05-21] MEDS: THIAMINE HCL 100 MG TABLET PO SCH ×2 (08:24→16:54)
[2017-05-21] MEDS: CARBIDOPA/LEVODOPA 25-100 MG TABLET PO SCH ×3 (08:24→16:54)
[2017-05-21] MEDS: OMEGA-3/DHA/EPA/FISH OIL 1,000 MG CAPSULE PO SCH (08:24)
[2017-05-21] MEDS: FOLIC ACID 1 MG TABLET PO SCH (08:24)
[2017-05-21] MEDS: AMANTADINE HCL 100 MG CAPSULE PO SCH ×3 (08:24→16:54)
[2017-05-21] MEDS: MULTIVITAMINS WITH MINERALS, THERAPEUTIC TABLET PO SCH (08:24)
[2017-05-21] MEDS: FLUoxetine HCL 10 MG CAPSULE PO SCH (08:24)
[2017-05-21] MEDS: NICOTINE 14 MG/24 HOUR PATCH TD SCH (08:26)
[2017-05-21 16:17] VITALS: BP 113/74
[2017-05-21] MEDS: QUEtiapine FUMARATE 200 MG TABLET PO SCH (20:37)
[2017-05-21] MEDS: DIVALPROEX SODIUM 500 MG ER TABLET PO SCH (20:37)
[2017-05-22 00:03] VITALS: BP 102/64
[2017-05-22 05:42] VITALS: BP 101/66
[2017-05-22 08:40] VITALS: BP 108/72
[2017-05-22] MEDS: OMEGA-3/DHA/EPA/FISH OIL 1,000 MG CAPSULE PO SCH (08:56)
[2017-05-22] MEDS: MULTIVITAMINS WITH MINERALS, THERAPEUTIC TABLET PO SCH (08:56)
[2017-05-22] MEDS: CARBIDOPA/LEVODOPA 25-100 MG TABLET PO SCH ×3 (08:56→16:16)
[2017-05-22] MEDS: FOLIC ACID 1 MG TABLET PO SCH (08:56)
[2017-05-22] MEDS: AMANTADINE HCL 100 MG CAPSULE PO SCH ×3 (08:56→16:16)
[2017-05-22] MEDS: THIAMINE HCL 100 MG TABLET PO SCH ×2 (08:56→16:16)
[2017-05-22] MEDS: FLUoxetine HCL 10 MG CAPSULE PO SCH (08:56)
[2017-05-22] MEDS: NICOTINE 14 MG/24 HOUR PATCH TD SCH (09:00)
[2017-05-22 16:15] VITALS: BP 112/72
[2017-05-22] MEDS: QUEtiapine FUMARATE 200 MG TABLET PO SCH (20:43)
[2017-05-22] MEDS: DIVALPROEX SODIUM 500 MG ER TABLET PO SCH (20:44)
[2017-05-23 00:32] VITALS: BP 101/61
[2017-05-23] MEDS: CARBIDOPA/LEVODOPA 25-100 MG TABLET PO SCH ×3 (08:32→16:33)
[2017-05-23] MEDS: MULTIVITAMINS WITH MINERALS, THERAPEUTIC TABLET PO SCH (08:32)
[2017-05-23] MEDS: AMANTADINE HCL 100 MG CAPSULE PO SCH ×3 (08:32→16:33)
[2017-05-23] MEDS: FLUoxetine HCL 10 MG CAPSULE PO SCH (08:32)
[2017-05-23] MEDS: THIAMINE HCL 100 MG TABLET PO SCH ×2 (08:32→16:33)
[2017-05-23] MEDS: OMEGA-3/DHA/EPA/FISH OIL 1,000 MG CAPSULE PO SCH (08:32)
[2017-05-23] MEDS: FOLIC ACID 1 MG TABLET PO SCH (08:32)
[2017-05-23] MEDS: NICOTINE 14 MG/24 HOUR PATCH TD SCH (08:38)
[2017-05-23 16:11] VITALS: BP 107/70
[2017-05-23] MEDS: QUEtiapine FUMARATE 200 MG TABLET PO SCH (20:39)
[2017-05-23] MEDS: DIVALPROEX SODIUM 500 MG ER TABLET PO SCH (20:39)
[2017-05-24 01:19] VITALS: BP 112/60
[2017-05-24] MEDS: FOLIC ACID 1 MG TABLET PO SCH (08:09)
[2017-05-24] MEDS: AMANTADINE HCL 100 MG CAPSULE PO SCH ×3 (08:09→16:37)
[2017-05-24] MEDS: FLUoxetine HCL 20 MG CAPSULE PO SCH (08:09)
[2017-05-24] MEDS: THIAMINE HCL 100 MG TABLET PO SCH ×2 (08:09→16:37)
[2017-05-24] MEDS: MULTIVITAMINS WITH MINERALS, THERAPEUTIC TABLET PO SCH (08:09)
[2017-05-24] MEDS: CARBIDOPA/LEVODOPA 25-100 MG TABLET PO SCH ×3 (08:09→16:37)
[2017-05-24] MEDS: OMEGA-3/DHA/EPA/FISH OIL 1,000 MG CAPSULE PO SCH (08:09)
[2017-05-24] MEDS: NICOTINE 14 MG/24 HOUR PATCH TD SCH (08:10)
[2017-05-24 08:35] VITALS: BP 103/64
[2017-05-24 09:05] LABS: ANION GAP 7 mmol/L (8-16); CALCIUM, TOTAL 8.8 mg/dL (8.8-10.5); CARBON DIOXIDE 30 mmol/L (22-29); CHLORIDE 103 mmol/L (98-107); CREATININE 0.97 mg/dL (0.60-1.30); GLOMERULAR FILTR. RATE CALC > 60 mL/min (>60); GLUCOSE,RANDOM 90 mg/dL (70-110); POTASSIUM 4.1 mmol/L (3.5-5.1); SODIUM SERUM 140 mmol/L (136-145); UREA NITROGEN, BLOOD 16 mg/dL (7-18); VALPROIC ACID 79 mcg/mL (50-100)
[2017-05-24] MEDS: DIVALPROEX SODIUM 500 MG ER TABLET PO SCH (20:36)
[2017-05-24] MEDS: QUEtiapine FUMARATE 200 MG TABLET PO SCH (20:36)
[2017-05-25 01:51] VITALS: BP 101/62
[2017-05-25] MEDS: FLUoxetine HCL 20 MG CAPSULE PO SCH (08:11)
[2017-05-25] MEDS: OMEGA-3/DHA/EPA/FISH OIL 1,000 MG CAPSULE PO SCH (08:11)
[2017-05-25] MEDS: CARBIDOPA/LEVODOPA 25-100 MG TABLET PO SCH ×3 (08:11→16:35)
[2017-05-25] MEDS: FOLIC ACID 1 MG TABLET PO SCH (08:11)
[2017-05-25] MEDS: AMANTADINE HCL 100 MG CAPSULE PO SCH ×3 (08:11→16:35)
[2017-05-25] MEDS: THIAMINE HCL 100 MG TABLET PO SCH ×2 (08:11→16:35)
[2017-05-25] MEDS: MULTIVITAMINS WITH MINERALS, THERAPEUTIC TABLET PO SCH (08:11)
[2017-05-25] MEDS: NICOTINE 14 MG/24 HOUR PATCH TD SCH (08:16)
[2017-05-25 08:37] VITALS: BP 98/64
[2017-05-25] MEDS ORDERED: DOCUSATE SODIUM 100 MG CAPSULE PO SCH (11:15)
[2017-05-25 16:19] VITALS: BP 103/63
[2017-05-25] MEDS: QUEtiapine FUMARATE 200 MG TABLET PO SCH (20:45)
[2017-05-25] MEDS: DIVALPROEX SODIUM 500 MG ER TABLET PO SCH (20:45)
[2017-05-25] MEDS ORDERED: BENZOCAINE/MENTHOL LOZENGE MM PRN (22:30)
[2017-05-25] MEDS ORDERED: IBUPROFEN 600 MG TABLET PO PRN (22:30)
[2017-05-25] MEDS ORDERED: BACITRACIN 28.4 GM OINTMENT TP PRN (22:30)
[2017-05-25] MEDS ORDERED: ONDANSETRON HCL 4 MG TABLET PO PRN (22:30)
[2017-05-25] MEDS ORDERED: PETROLATUM,WHITE 71 GM JELLY TP PRN (22:30)
[2017-05-25] MEDS ORDERED: ALBUTEROL SULFATE HFA 90 MCG/PUFF 8 GM INHALER IH PRN (22:30)
[2017-05-25] MEDS ORDERED: CloNIDine HCL 0.1 MG TABLET PO PRN (22:30)
[2017-05-26 04:29] VITALS: BP 108/64
[2017-05-26 07:48] LABS: BASOPHILS % (AUTO) 0.5 % (0.0-2.0); EOSINOPHILS % (AUTO) 5.5 % (1.0-6.0); HEMATOCRIT 43.8 % (41-53); HEMOGLOBIN 14.8 g/dL (13.5-17.5); LYMPHOCYTES # (AUTO) 2.6 K/uL (1.0-4.8); LYMPHOCYTES % (AUTO) 46.2 % (22.0-44.0); MEAN CORPUSCULAR HEMOGLOBIN 29.7 pg (26.0-34.0); MEAN CORPUSCULAR HGB CONC 33.9 G/dL (31.0-37.0); MEAN CORPUSCULAR VOLUME 88 fL (80-100); MONOCYTES # (AUTO) 0.6 K/uL (0.1-1.0); MONOCYTES % (AUTO) 10.6 % (2.0-9.0); NEUTROPHILS # (AUTO) 2.1 K/uL (1.8-7.7); NEUTROPHILS % (AUTO) 37.2 % (40.0-70.0); PLATELET COUNT (AUTO) 202 K/uL (150-450); RED BLOOD CELL COUNT(AUTO) 4.98 MIL/uL (4.50-5.90); RED CELL DISTRIBUTION WIDTH 13.2 % (11.5-14.5)
[2017-05-26 08:09] LABS: ALBUMIN 3.1 g/dL (3.4-5.0); BILIRUBIN,TOTAL 0.3 mg/dL (0.1-1.0); TOTAL PROTEIN, SERUM 6.7 g/dL (6.4-8.2)
[2017-05-26 08:11] LABS: BILIRUBIN,DIRECT 0.1 mg/dL (0.00-0.20)
[2017-05-26] MEDS: MULTIVITAMINS WITH MINERALS, THERAPEUTIC TABLET PO SCH (08:39)
[2017-05-26] MEDS: THIAMINE HCL 100 MG TABLET PO SCH (08:40)
[2017-05-26] MEDS: OMEGA-3/DHA/EPA/FISH OIL 1,000 MG CAPSULE PO SCH (08:40)
[2017-05-26] MEDS: CARBIDOPA/LEVODOPA 25-100 MG TABLET PO SCH ×3 (08:40→16:48)
[2017-05-26] MEDS: FOLIC ACID 1 MG TABLET PO SCH (08:40)
[2017-05-26] MEDS: OMEPRAZOLE 20 MG CAPSULE PO SCH (08:40)
[2017-05-26] MEDS: AMANTADINE HCL 100 MG CAPSULE PO SCH ×3 (08:40→16:48)
[2017-05-26] MEDS: DOCUSATE SODIUM 100 MG CAPSULE PO SCH (08:40)
[2017-05-26] MEDS: FLUoxetine HCL 20 MG CAPSULE PO SCH (08:40)
[2017-05-26 08:49] VITALS: BP 110/76
[2017-05-26 16:21] VITALS: BP 100/61
[2017-05-26] MEDS: DIVALPROEX SODIUM 500 MG ER TABLET PO SCH (20:38)
[2017-05-26] MEDS: QUEtiapine FUMARATE 200 MG TABLET PO SCH (20:38)
[2017-05-27 04:51] VITALS: BP 119/76
[2017-05-27] MEDS: LORazepam 0.5 MG TABLET PO PRN (04:57)
[2017-05-27 08:57] VITALS: BP 115/75
[2017-05-27] MEDS: MULTIVITAMINS WITH MINERALS, THERAPEUTIC TABLET PO SCH (09:24)
[2017-05-27] MEDS: AMANTADINE HCL 100 MG CAPSULE PO SCH ×3 (09:24→17:00)
[2017-05-27] MEDS: OMEGA-3/DHA/EPA/FISH OIL 1,000 MG CAPSULE PO SCH (09:24)
[2017-05-27] MEDS: FLUoxetine HCL 20 MG CAPSULE PO SCH (09:24)
[2017-05-27] MEDS: CARBIDOPA/LEVODOPA 25-100 MG TABLET PO SCH ×3 (09:24→17:00)
[2017-05-27] MEDS: OMEPRAZOLE 20 MG CAPSULE PO SCH (09:24)
[2017-05-27] MEDS: DOCUSATE SODIUM 100 MG CAPSULE PO SCH (09:24)
[2017-05-27 16:17] VITALS: BP 104/70
[2017-05-27] MEDS: DIVALPROEX SODIUM 500 MG ER TABLET PO SCH (20:18)
[2017-05-27] MEDS: QUEtiapine FUMARATE 200 MG TABLET PO SCH (20:18)
[2017-05-28 04:45] VITALS: BP 126/88
[2017-05-28] MEDS: LORazepam 0.5 MG TABLET PO PRN (05:22)
[2017-05-28 08:42] VITALS: BP 113/70
[2017-05-28] MEDS: FLUoxetine HCL 20 MG CAPSULE PO SCH (08:54)
[2017-05-28] MEDS: OMEPRAZOLE 20 MG CAPSULE PO SCH (08:54)
[2017-05-28] MEDS: OMEGA-3/DHA/EPA/FISH OIL 1,000 MG CAPSULE PO SCH (08:54)
[2017-05-28] MEDS: DOCUSATE SODIUM 100 MG CAPSULE PO SCH (08:54)
[2017-05-28] MEDS: CARBIDOPA/LEVODOPA 25-100 MG TABLET PO SCH ×3 (08:54→16:45)
[2017-05-28] MEDS: AMANTADINE HCL 100 MG CAPSULE PO SCH ×3 (08:54→16:45)
[2017-05-28] MEDS: MULTIVITAMINS WITH MINERALS, THERAPEUTIC TABLET PO SCH (08:54)
[2017-05-28 17:24] VITALS: BP 110/69
[2017-05-28] MEDS: QUEtiapine FUMARATE 200 MG TABLET PO SCH (20:16)
[2017-05-28] MEDS: DIVALPROEX SODIUM 500 MG ER TABLET PO SCH (20:16)
[2017-05-29 00:13] VITALS: BP 118/82
[2017-05-29 08:28] VITALS: BP 109/68
[2017-05-29] MEDS: AMANTADINE HCL 100 MG CAPSULE PO SCH ×3 (09:19→17:11)
[2017-05-29] MEDS: MULTIVITAMINS WITH MINERALS, THERAPEUTIC TABLET PO SCH (09:19)
[2017-05-29] MEDS: DOCUSATE SODIUM 100 MG CAPSULE PO SCH (09:19)
[2017-05-29] MEDS: CARBIDOPA/LEVODOPA 25-100 MG TABLET PO SCH ×3 (09:20→17:11)
[2017-05-29] MEDS: OMEGA-3/DHA/EPA/FISH OIL 1,000 MG CAPSULE PO SCH (09:20)
[2017-05-29] MEDS: FLUoxetine HCL 20 MG CAPSULE PO SCH (09:20)
[2017-05-29] MEDS: OMEPRAZOLE 20 MG CAPSULE PO SCH (09:20)
[2017-05-29 16:15] VITALS: BP 115/76
[2017-05-29] MEDS: QUEtiapine FUMARATE 200 MG TABLET PO SCH (20:43)
[2017-05-29] MEDS: DIVALPROEX SODIUM 500 MG ER TABLET PO SCH (20:44)
[2017-05-30] VITALS: BP 100/62
[2017-05-30] MEDS ORDERED: FLUO-191 PO (07:56)
[2017-05-30] MEDS ORDERED: DIVA500T52 PO (07:56)
[2017-05-30] MEDS ORDERED: QUET200T PO (07:56)
[2017-05-30 08:47] VITALS: BP 114/71
[2017-05-30] MEDS: DOCUSATE SODIUM 100 MG CAPSULE PO SCH (10:22)
[2017-05-30] MEDS: MULTIVITAMINS WITH MINERALS, THERAPEUTIC TABLET PO SCH (10:22)
[2017-05-30] MEDS: OMEPRAZOLE 20 MG CAPSULE PO SCH (10:22)
[2017-05-30] MEDS: FLUoxetine HCL 20 MG CAPSULE PO SCH (10:22)
[2017-05-30] MEDS: OMEGA-3/DHA/EPA/FISH OIL 1,000 MG CAPSULE PO SCH (10:22)
[2017-05-30] MEDS: AMANTADINE HCL 100 MG CAPSULE PO SCH (10:23)
[2017-05-30] MEDS: CARBIDOPA/LEVODOPA 25-100 MG TABLET PO SCH (10:23)
== END 2017-05-30 10:10 | disposition home or self-care (01) | DRG 885 ==
LOC: B2X 15:00
PROVIDERS: ADMIT Psychiatry & Neurology Psychiatry; ATTEND Psychiatry & Neurology Psychiatry
DX: F31.5 Bipolar disorder, current episode depressed, severe, with psychotic features (principal); G20 Parkinson's disease; R45.851 Suicidal ideations; F12.90 Cannabis use, unspecified, uncomplicated; F17.200 Nicotine dependence, unspecified, uncomplicated; B35.0 Tinea barbae and tinea capitis; K21.9 Gastro-esophageal reflux disease without esophagitis; J44.9 Chronic obstructive pulmonary disease, unspecified; I10 Essential (primary) hypertension; G47.00 Insomnia, unspecified; K59.00 Constipation, unspecified; Z91.19 Patient's noncompliance with other medical treatment and regimen; Z79.899 Other long term (current) drug therapy; Z71.6 Tobacco abuse counseling; Z56.0 Unemployment, unspecified
CPT/HCPCS: 83036; 84439; 84443; 86592

== ENCOUNTER 2017-09-06 04:05 | Emergency (ER) | payer OTHER, MEDICAID ==
[~2017-09-06] VITALS: Ht 167.6 cm; Wt 68.0 kg
[~2017-09-06 04:05] MED LIST changes: +AMAN100C12 PO; -AMANL PO; -DIVA250T4 PO; +DIVA500T52 PO; +FLUO-191 PO; -MULT-685 PO; +QUET200T PO; -RISP3TAB44 PO
[2017-09-06 04:45] LABS: BASOPHILS % (AUTO) 0.4 % (0.0-2.0); EOSINOPHILS % (AUTO) 2.2 % (1.0-6.0); HEMATOCRIT 42.4 % (41-53); HEMOGLOBIN 14.8 g/dL (13.5-17.5); LYMPHOCYTES # (AUTO) 1.9 K/uL (1.0-4.8); LYMPHOCYTES % (AUTO) 27.3 % (22.0-44.0); MEAN CORPUSCULAR HEMOGLOBIN 29.9 pg (26.0-34.0); MEAN CORPUSCULAR HGB CONC 34.9 G/dL (31.0-37.0); MEAN CORPUSCULAR VOLUME 86 fL (80-100); MONOCYTES # (AUTO) 0.8 K/uL (0.1-1.0); NEUTROPHILS # (AUTO) 4.1 K/uL (1.8-7.7); NEUTROPHILS % (AUTO) 58.1 % (40.0-70.0); PLATELET COUNT (AUTO) 223 K/uL (150-450); RED BLOOD CELL COUNT(AUTO) 4.94 MIL/uL (4.50-5.90); RED CELL DISTRIBUTION WIDTH 13.7 % (11.5-14.5)
[2017-09-06 04:59] LABS: ANION GAP 10 mmol/L (8-16); CALCIUM, TOTAL 9.3 mg/dL (8.8-10.5); CARBON DIOXIDE 29 mmol/L (22-29); CHLORIDE 99 mmol/L (98-107); CREATININE 1.13 mg/dL (0.60-1.30); GLOMERULAR FILTR. RATE CALC > 60 mL/min (>60); GLUCOSE,RANDOM 110 mg/dL (70-110); POTASSIUM 3.6 mmol/L (3.5-5.1); SODIUM SERUM 138 mmol/L (136-145); UREA NITROGEN, BLOOD 13 mg/dL (7-18)
[2017-09-06 05:04] LABS: ALANINE AMINOTRANSFERASE 24 U/L (12-78); ALKALINE PHOSPHATASE 104 U/L (46-116); ASPARTATE AMINOTRANSFERASE 20 U/L (15-37); BILIRUBIN,TOTAL 0.4 mg/dL (0.1-1.0); TOTAL PROTEIN, SERUM 8.3 g/dL (6.4-8.2)
[2017-09-06 09:23] VITALS: BP 133/75
== END 2017-09-06 10:36 | disposition home or self-care (01) ==
LOC: EMS 04:06
DX: F25.9 Schizoaffective disorder, unspecified (principal); F41.9 Anxiety disorder, unspecified; F17.210 Nicotine dependence, cigarettes, uncomplicated
CPT/HCPCS: 36415; 80053; 85025; 99284; G0480

== ENCOUNTER 2017-10-12 01:32 | Emergency (ER) | payer MEDICARE, MEDICAID ==
[~2017-10-12] VITALS: Ht 165.1 cm; Wt 68.0 kg
[2017-10-12 01:53] LABS: GLUCOSE,POINT OF CARE 106 MG/DL (70-110)
[2017-10-12 02:34] LABS: BASOPHILS % (AUTO) 0.6 % (0.0-2.0); EOSINOPHILS % (AUTO) 1.5 % (1.0-6.0); HEMATOCRIT 44.9 % (41-53); LYMPHOCYTES % (AUTO) 27.8 % (22.0-44.0); MEAN CORPUSCULAR HEMOGLOBIN 29.4 pg (26.0-34.0); MEAN CORPUSCULAR HGB CONC 33.5 G/dL (31.0-37.0); MEAN CORPUSCULAR VOLUME 88 fL (80-100); MONOCYTES # (AUTO) 0.7 K/uL (0.1-1.0); MONOCYTES % (AUTO) 9.6 % (2.0-9.0); NEUTROPHILS # (AUTO) 4.3 K/uL (1.8-7.7); NEUTROPHILS % (AUTO) 60.5 % (40.0-70.0); PLATELET COUNT (AUTO) 228 K/uL (150-450); RED BLOOD CELL COUNT(AUTO) 5.12 MIL/uL (4.50-5.90)
[2017-10-12 02:49] LABS: ANION GAP 10 mmol/L (8-16); CALCIUM, TOTAL 9.3 mg/dL (8.8-10.5); CARBON DIOXIDE 30 mmol/L (22-29); CHLORIDE 100 mmol/L (98-107); CREATININE 1.15 mg/dL (0.60-1.30); GLOMERULAR FILTR. RATE CALC > 60 mL/min (>60); GLUCOSE,RANDOM 177 mg/dL (70-110); POTASSIUM 3.7 mmol/L (3.5-5.1); SODIUM SERUM 140 mmol/L (136-145); UREA NITROGEN, BLOOD 8 mg/dL (7-18)
[2017-10-12 02:55] LABS: ALANINE AMINOTRANSFERASE 23 U/L (12-78); ALBUMIN 3.8 g/dL (3.4-5.0); ALKALINE PHOSPHATASE 73 U/L (46-116); ASPARTATE AMINOTRANSFERASE 15 U/L (15-37); BILIRUBIN,TOTAL 0.4 mg/dL (0.1-1.0); VALPROIC ACID 24 mcg/mL (50-100)
[2017-10-12 05:20] VITALS: BP 120/68
[2017-10-12] MEDS ORDERED: LORazepam 1 MG TABLET PO ONE (06:00)
== END 2017-10-12 06:05 | disposition home or self-care (01) ==
LOC: EMS 01:33
DX: F20.9 Schizophrenia, unspecified (principal); F41.9 Anxiety disorder, unspecified
CPT/HCPCS: 36415; 80053; 80164; 82962; 85025; 99284; G0480

== ENCOUNTER 2017-11-05 20:28 | Inpatient (IN) | payer OTHER, MEDICAID ==
[~2017-11-05] VITALS: Ht 170.2 cm; Wt 69.9 kg
[2017-11-05 21:56] VITALS: BP 112/75
[2017-11-05 22:42] VITALS: BP 122/85
[2017-11-06] MEDS ORDERED: PNEUMOCOCCAL VACCINE POLYVALENT 0.5 ML VIAL [PPSV23] IM ONE (01:15)
[2017-11-06 06:23] VITALS: BP 137/67
[2017-11-06] MEDS ORDERED: ALBUTEROL SULFATE HFA 90 MCG/PUFF 8 GM INHALER IH PRN (08:15)
[2017-11-06] MEDS ORDERED: MAGNESIUM HYDROXIDE SUSPENSION 30 ML UDCUP PO PRN (08:15)
[2017-11-06] MEDS ORDERED: CloNIDine HCL 0.1 MG TABLET PO PRN (08:15)
[2017-11-06] MEDS ORDERED: MAG HYDROX/AL HYDROX/SIMETH ES 30 ML SUSPENSION UDCUP PO PRN (08:15)
[2017-11-06] MEDS ORDERED: BACITRACIN 28.4 GM OINTMENT TP PRN (08:15)
[2017-11-06] MEDS ORDERED: ONDANSETRON HCL 4 MG TABLET PO PRN (08:15)
[2017-11-06] MEDS ORDERED: BENZOCAINE/MENTHOL LOZENGE MM PRN (08:15)
[2017-11-06] MEDS ORDERED: LOPERAMIDE HCL 2 MG CAPSULE PO PRN (08:15)
[2017-11-06] MEDS ORDERED: PETROLATUM,WHITE 71 GM JELLY TP PRN (08:15)
[2017-11-06 08:26] VITALS: BP 111/76
[2017-11-06] MEDS: CARBIDOPA/LEVODOPA 25-100 MG TABLET PO SCH ×3 (09:00→16:53)
[2017-11-06] MEDS: AMANTADINE HCL 100 MG CAPSULE PO SCH ×3 (09:00→16:53)
[2017-11-06] MEDS: OMEPRAZOLE 20 MG CAPSULE PO SCH (09:27)
[2017-11-06] MEDS: DOCUSATE SODIUM 100 MG CAPSULE PO SCH (09:27)
[2017-11-06] MEDS: OMEGA-3/DHA/EPA/FISH OIL 1,000 MG CAPSULE PO SCH (09:27)
[2017-11-06] MEDS: HALOPERIDOL 5 MG TABLET PO PRN (09:28)
[2017-11-06 16:16] VITALS: BP 122/77
[2017-11-06] MEDS: LORazepam 2 MG TABLET PO PRN (16:54)
[2017-11-07 02:30] VITALS: BP 110/71
[2017-11-07] MEDS: ZOLPIDEM TARTRATE 10 MG TABLET PO PRN (02:40)
[2017-11-07 08:00] VITALS: BP 111/70
[2017-11-07 08:12] LABS: BASOPHILS % (AUTO) 0.4 % (0.0-2.0); EOSINOPHILS % (AUTO) 4.1 % (1.0-6.0); HEMATOCRIT 44.5 % (41-53); HEMOGLOBIN 15.2 g/dL (13.5-17.5); LYMPHOCYTES # (AUTO) 2.2 K/uL (1.0-4.8); LYMPHOCYTES % (AUTO) 30.3 % (22.0-44.0); MEAN CORPUSCULAR HEMOGLOBIN 29.1 pg (26.0-34.0); MEAN CORPUSCULAR HGB CONC 34.1 G/dL (31.0-37.0); MEAN CORPUSCULAR VOLUME 85 fL (80-100); MONOCYTES # (AUTO) 0.8 K/uL (0.1-1.0); MONOCYTES % (AUTO) 11.8 % (2.0-9.0); NEUTROPHILS # (AUTO) 3.8 K/uL (1.8-7.7); NEUTROPHILS % (AUTO) 53.4 % (40.0-70.0); PLATELET COUNT (AUTO) 232 K/uL (150-450); RED BLOOD CELL COUNT(AUTO) 5.21 MIL/uL (4.50-5.90); RED CELL DISTRIBUTION WIDTH 13.7 % (11.5-14.5)
[2017-11-07] MEDS: DOCUSATE SODIUM 100 MG CAPSULE PO SCH (08:13)
[2017-11-07] MEDS: OMEGA-3/DHA/EPA/FISH OIL 1,000 MG CAPSULE PO SCH (08:13)
[2017-11-07] MEDS: CARBIDOPA/LEVODOPA 25-100 MG TABLET PO SCH ×3 (08:13→16:38)
[2017-11-07] MEDS: OMEPRAZOLE 20 MG CAPSULE PO SCH (08:13)
[2017-11-07] MEDS: AMANTADINE HCL 100 MG CAPSULE PO SCH ×3 (08:13→16:38)
[2017-11-07 08:21] LABS: HEMOGLOBIN A1C 5.8 % (4.5-6.2)
[2017-11-07 08:34] LABS: ALANINE AMINOTRANSFERASE 20 U/L (12-78); ALBUMIN 3.4 g/dL (3.4-5.0); ALKALINE PHOSPHATASE 82 U/L (46-116); ANION GAP 5 mmol/L (8-16); ASPARTATE AMINOTRANSFERASE 20 U/L (15-37); BILIRUBIN,TOTAL 0.5 mg/dL (0.1-1.0); CALCIUM, TOTAL 9.4 mg/dL (8.8-10.5); CARBON DIOXIDE 33 mmol/L (22-29); CHLORIDE 102 mmol/L (98-107); CHOL/HDL RATIO 3.2 (4.2-7.3); CHOLESTEROL 185 mg/dL (131-200); CREATININE 1.07 mg/dL (0.60-1.30); FREE T4 (FREE THYROXINE) 1.07 ng/dL (0.76-1.46); GLOMERULAR FILTR. RATE CALC > 60 mL/min (>60); GLUCOSE,RANDOM 95 mg/dL (70-110); HDL CHOLESTEROL 57 mg/dL (40-60); LDL CHOL (CALC.) 110 mg/dL (0-130); POTASSIUM 4.2 mmol/L (3.5-5.1); SODIUM SERUM 140 mmol/L (136-145); THYROID STIMULATING HORMONE 1.94 uIU/mL (0.36-3.74); TOTAL PROTEIN, SERUM 7.4 g/dL (6.4-8.2); TRIGLYCERIDES 88 mg/dL (15-150); UREA NITROGEN, BLOOD 12 mg/dL (7-18)
[2017-11-07 16:08] VITALS: BP 104/74
[2017-11-07] MEDS: RisperiDONE 1 MG TABLET PO SCH (16:38)
[2017-11-07] MEDS ORDERED: DIVALPROEX SODIUM 250 MG ER TABLET PO SCH (17:00)
[2017-11-07] MEDS: QUEtiapine FUMARATE 200 MG TABLET PO SCH (20:29)
[2017-11-08 06:06] VITALS: BP 103/65
[2017-11-08 08:13] VITALS: BP 100/60
[2017-11-08] MEDS: OMEGA-3/DHA/EPA/FISH OIL 1,000 MG CAPSULE PO SCH (08:22)
[2017-11-08] MEDS: OMEPRAZOLE 20 MG CAPSULE PO SCH (08:22)
[2017-11-08] MEDS: VALPROIC ACID 250 MG/5 ML SYRUP UDCUP PO SCH ×2 (08:22→16:32)
[2017-11-08] MEDS: CARBIDOPA/LEVODOPA 25-100 MG TABLET PO SCH ×3 (08:22→16:30)
[2017-11-08] MEDS: RisperiDONE 1 MG TABLET PO SCH (08:22)
[2017-11-08] MEDS: AMANTADINE HCL 100 MG CAPSULE PO SCH ×3 (08:22→16:31)
[2017-11-08] MEDS: DOCUSATE SODIUM 100 MG CAPSULE PO SCH (08:22)
[2017-11-08] MEDS ORDERED: DOCUSATE SODIUM 100 MG CAPSULE PO PRN (12:00)
[2017-11-08 16:09] VITALS: BP 102/60
[2017-11-08] MEDS: CALCIPOTRIENE 0.005% TP SCH (16:31)
[2017-11-08] MEDS: RisperiDONE 2 MG TABLET PO SCH (20:31)
[2017-11-08] MEDS: QUEtiapine FUMARATE 200 MG TABLET PO SCH (20:31)
[2017-11-09 06:27] VITALS: BP 114/71
[2017-11-09 08:00] VITALS: BP 112/64
[2017-11-09] MEDS: CARBIDOPA/LEVODOPA 25-100 MG TABLET PO SCH ×3 (08:10→16:34)
[2017-11-09] MEDS: RisperiDONE 1 MG TABLET PO SCH (08:10)
[2017-11-09] MEDS: VALPROIC ACID 250 MG/5 ML SYRUP UDCUP PO SCH ×2 (08:10→16:34)
[2017-11-09] MEDS: OMEGA-3/DHA/EPA/FISH OIL 1,000 MG CAPSULE PO SCH (08:10)
[2017-11-09] MEDS: AMANTADINE HCL 100 MG CAPSULE PO SCH ×3 (08:10→16:34)
[2017-11-09] MEDS: OMEPRAZOLE 20 MG CAPSULE PO SCH (08:10)
[2017-11-09] MEDS: CALCIPOTRIENE 0.005% TP SCH ×2 (08:14→16:34)
[2017-11-09] MEDS: SELENIUM SULFIDE 1% 207 ML SHAMPOO TP SCH (09:00)
[2017-11-09 09:47] VITALS: BP 110/66
[2017-11-09] MEDS: ACETAMINOPHEN 325 MG TABLET PO PRN (09:47)
[2017-11-09 16:33] VITALS: BP 111/66
[2017-11-09] MEDS: RisperiDONE 2 MG TABLET PO SCH (20:32)
[2017-11-09] MEDS: QUEtiapine FUMARATE 200 MG TABLET PO SCH (20:32)
[2017-11-09] MEDS: ZOLPIDEM TARTRATE 10 MG TABLET PO PRN (22:22)
[2017-11-10 06:55] VITALS: BP 105/63
[2017-11-10] MEDS: AMANTADINE HCL 100 MG CAPSULE PO SCH ×3 (08:07→16:30)
[2017-11-10] MEDS: RisperiDONE 1 MG TABLET PO SCH (08:07)
[2017-11-10] MEDS: OMEPRAZOLE 20 MG CAPSULE PO SCH (08:07)
[2017-11-10] MEDS: CARBIDOPA/LEVODOPA 25-100 MG TABLET PO SCH ×3 (08:07→16:30)
[2017-11-10] MEDS: VALPROIC ACID 250 MG/5 ML SYRUP UDCUP PO SCH ×2 (08:07→16:30)
[2017-11-10] MEDS: OMEGA-3/DHA/EPA/FISH OIL 1,000 MG CAPSULE PO SCH (08:07)
[2017-11-10 08:26] VITALS: BP 110/56
[2017-11-10] MEDS: CALCIPOTRIENE 0.005% TP SCH ×2 (09:06→16:30)
[2017-11-10] MEDS: SELENIUM SULFIDE 1% 207 ML SHAMPOO TP SCH (09:06)
[2017-11-10 16:34] VITALS: BP 109/68
[2017-11-10] MEDS ORDERED: RisperiDONE 2 MG TABLET PO SCH (20:29)
[2017-11-10] MEDS: QUEtiapine FUMARATE 200 MG TABLET PO SCH (20:34)
[2017-11-11 01:45] VITALS: BP 108/66
[2017-11-11] MEDS: ZOLPIDEM TARTRATE 10 MG TABLET PO PRN ×2 (02:47→20:55)
[2017-11-11 08:27] VITALS: BP 106/67
[2017-11-11] MEDS: RisperiDONE 2 MG TABLET PO SCH ×2 (08:36→16:44)
[2017-11-11] MEDS: AMANTADINE HCL 100 MG CAPSULE PO SCH ×3 (08:36→16:32)
[2017-11-11] MEDS: OMEGA-3/DHA/EPA/FISH OIL 1,000 MG CAPSULE PO SCH (08:36)
[2017-11-11] MEDS: CARBIDOPA/LEVODOPA 25-100 MG TABLET PO SCH ×3 (08:36→16:32)
[2017-11-11] MEDS: OMEPRAZOLE 20 MG CAPSULE PO SCH (08:36)
[2017-11-11] MEDS: VALPROIC ACID 250 MG/5 ML SYRUP UDCUP PO SCH ×2 (08:36→16:32)
[2017-11-11] MEDS: CALCIPOTRIENE 0.005% TP SCH ×2 (08:39→16:32)
[2017-11-11] MEDS: SELENIUM SULFIDE 1% 207 ML SHAMPOO TP SCH (09:00)
[2017-11-11 16:04] VITALS: BP 121/86
[2017-11-11] MEDS: QUEtiapine FUMARATE 200 MG TABLET PO SCH (20:28)
[2017-11-12 00:47] VITALS: BP 114/71
[2017-11-12] MEDS: LORazepam 2 MG TABLET PO PRN (00:50)
[2017-11-12] MEDS: HALOPERIDOL 5 MG TABLET PO PRN (00:50)
[2017-11-12 08:11] VITALS: BP 108/63
[2017-11-12] MEDS: CARBIDOPA/LEVODOPA 25-100 MG TABLET PO SCH ×3 (08:42→16:28)
[2017-11-12] MEDS: AMANTADINE HCL 100 MG CAPSULE PO SCH ×3 (08:42→16:28)
[2017-11-12] MEDS: OMEPRAZOLE 20 MG CAPSULE PO SCH (08:42)
[2017-11-12] MEDS: VALPROIC ACID 250 MG/5 ML SYRUP UDCUP PO SCH ×2 (08:43→16:29)
[2017-11-12] MEDS: CALCIPOTRIENE 0.005% TP SCH ×2 (08:44→16:29)
[2017-11-12] MEDS: OMEGA-3/DHA/EPA/FISH OIL 1,000 MG CAPSULE PO SCH (08:44)
[2017-11-12] MEDS: SELENIUM SULFIDE 1% 207 ML SHAMPOO TP SCH (08:45)
[2017-11-12] MEDS: RisperiDONE 2 MG TABLET PO SCH ×2 (08:48→16:28)
[2017-11-12 16:04] VITALS: BP 106/78
[2017-11-12] MEDS: QUEtiapine FUMARATE 200 MG TABLET PO SCH (20:28)
[2017-11-12] MEDS: ZOLPIDEM TARTRATE 10 MG TABLET PO PRN (21:16)
[2017-11-13] VITALS: BP 116/76
[2017-11-13] MEDS: LORazepam 2 MG TABLET PO PRN (01:11)
[2017-11-13] MEDS: HALOPERIDOL 5 MG TABLET PO PRN (01:56)
[2017-11-13] MEDS: RisperiDONE 2 MG TABLET PO SCH (08:04)
[2017-11-13] MEDS: OMEPRAZOLE 20 MG CAPSULE PO SCH (08:04)
[2017-11-13] MEDS: VALPROIC ACID 250 MG/5 ML SYRUP UDCUP PO SCH ×2 (08:05→17:07)
[2017-11-13] MEDS: AMANTADINE HCL 100 MG CAPSULE PO SCH ×3 (08:05→16:44)
[2017-11-13] MEDS: OMEGA-3/DHA/EPA/FISH OIL 1,000 MG CAPSULE PO SCH (08:05)
[2017-11-13] MEDS: CARBIDOPA/LEVODOPA 25-100 MG TABLET PO SCH ×3 (08:05→16:44)
[2017-11-13 08:06] VITALS: BP 106/68
[2017-11-13] MEDS: SELENIUM SULFIDE 1% 207 ML SHAMPOO TP SCH (08:21)
[2017-11-13] MEDS: CALCIPOTRIENE 0.005% TP SCH ×2 (09:08→16:44)
[2017-11-13 16:04] VITALS: BP 107/70
[2017-11-13] MEDS: QUEtiapine FUMARATE 200 MG TABLET PO SCH (20:30)
[2017-11-13] MEDS: ZOLPIDEM TARTRATE 10 MG TABLET PO PRN (20:56)
[2017-11-13] MEDS ORDERED: RisperiDONE 3 MG TABLET PO SCH (21:00)
[2017-11-14 00:01] VITALS: BP 113/66
[2017-11-14] MEDS: LORazepam 2 MG TABLET PO PRN ×2 (00:04→15:53)
[2017-11-14 02:10] VITALS: BP 128/81
[2017-11-14] MEDS: HALOPERIDOL 5 MG TABLET PO PRN (02:17)
[2017-11-14 07:59] VITALS: BP 125/69
[2017-11-14] MEDS: CARBIDOPA/LEVODOPA 25-100 MG TABLET PO SCH ×3 (08:43→16:30)
[2017-11-14] MEDS: AMANTADINE HCL 100 MG CAPSULE PO SCH ×3 (08:43→16:30)
[2017-11-14] MEDS: RisperiDONE 2 MG TABLET PO SCH (08:43)
[2017-11-14] MEDS: VALPROIC ACID 250 MG/5 ML SYRUP UDCUP PO SCH ×2 (08:44→16:30)
[2017-11-14] MEDS: OMEGA-3/DHA/EPA/FISH OIL 1,000 MG CAPSULE PO SCH (08:44)
[2017-11-14] MEDS: OMEPRAZOLE 20 MG CAPSULE PO SCH (08:44)
[2017-11-14] MEDS ORDERED: CALC560C TP ×2 (10:04→12:02)
[2017-11-14] MEDS ORDERED: SELE207S8 TP ×2 (10:05→10:11)
[2017-11-14] MEDS ORDERED: CALC560O TP ×2 (10:08→10:10)
[2017-11-14] MEDS ORDERED: VALP250C PO (10:15)
[2017-11-14] MEDS ORDERED: RISP3TAB44 PO (10:16)
[2017-11-14] MEDS ORDERED: QUET200T PO (10:17)
[2017-11-14] MEDS ORDERED: RISP2 PO (10:18)
[2017-11-14] MEDS ORDERED: RISP3 PO (10:26)
[2017-11-14] MEDS: SELENIUM SULFIDE 1% 207 ML SHAMPOO TP SCH (10:36)
[2017-11-14] MEDS: CALCIPOTRIENE 0.005% TP SCH ×2 (10:36→16:30)
[2017-11-14 14:21] VITALS: BP 125/69
[2017-11-14 16:26] VITALS: BP 137/75
[2017-11-14] MEDS ORDERED: DiphenhydrAMINE HCL 50 MG/ML VIAL IM ONE (20:00)
[2017-11-14] MEDS: QUEtiapine FUMARATE 200 MG TABLET PO SCH (20:33)
[2017-11-15 02:07] VITALS: BP 134/79
[2017-11-15] MEDS: LORazepam 2 MG TABLET PO PRN (02:10)
[2017-11-15 02:48] VITALS: BP 117/76
[2017-11-15 08:00] VITALS: BP 110/67
[2017-11-15] MEDS: CARBIDOPA/LEVODOPA 25-100 MG TABLET PO SCH ×3 (08:22→16:34)
[2017-11-15] MEDS: OMEPRAZOLE 20 MG CAPSULE PO SCH (08:22)
[2017-11-15] MEDS: RisperiDONE 1 MG TABLET PO SCH ×2 (08:23→16:34)
[2017-11-15] MEDS: VALPROIC ACID 250 MG/5 ML SYRUP UDCUP PO SCH ×2 (08:23→16:35)
[2017-11-15] MEDS: OMEGA-3/DHA/EPA/FISH OIL 1,000 MG CAPSULE PO SCH (08:23)
[2017-11-15] MEDS: BENZTROPINE MESYLATE 1 MG TABLET PO SCH ×2 (08:23→16:34)
[2017-11-15] MEDS: AMANTADINE HCL 100 MG CAPSULE PO SCH ×3 (08:23→16:34)
[2017-11-15] MEDS: SELENIUM SULFIDE 1% 207 ML SHAMPOO TP SCH (08:29)
[2017-11-15] MEDS: CALCIPOTRIENE 0.005% TP SCH ×2 (08:29→16:35)
[2017-11-15 16:02] VITALS: BP 113/74
[2017-11-15] MEDS: QUEtiapine FUMARATE 200 MG TABLET PO SCH (20:33)
[2017-11-15] MEDS: OLANZapine 7.5 MG TABLET PO SCH (20:33)
[2017-11-16 06:53] VITALS: BP 115/71
[2017-11-16] MEDS: AMANTADINE HCL 100 MG CAPSULE PO SCH ×3 (08:13→16:32)
[2017-11-16] MEDS: CARBIDOPA/LEVODOPA 25-100 MG TABLET PO SCH ×3 (08:13→16:32)
[2017-11-16] MEDS: VALPROIC ACID 250 MG/5 ML SYRUP UDCUP PO SCH ×2 (08:13→16:32)
[2017-11-16] MEDS: BENZTROPINE MESYLATE 1 MG TABLET PO SCH ×2 (08:13→16:32)
[2017-11-16] MEDS: OMEPRAZOLE 20 MG CAPSULE PO SCH (08:13)
[2017-11-16] MEDS: OMEGA-3/DHA/EPA/FISH OIL 1,000 MG CAPSULE PO SCH (08:13)
[2017-11-16] MEDS: RisperiDONE 1 MG TABLET PO SCH ×2 (08:13→16:32)
[2017-11-16 08:16] VITALS: BP 113/63
[2017-11-16] MEDS: SELENIUM SULFIDE 1% 207 ML SHAMPOO TP SCH (09:00)
[2017-11-16] MEDS: CALCIPOTRIENE 0.005% TP SCH ×2 (09:06→16:33)
[2017-11-16 16:12] VITALS: BP 114/68
[2017-11-16] MEDS: QUEtiapine FUMARATE 200 MG TABLET PO SCH (20:12)
[2017-11-16] MEDS: OLANZapine 7.5 MG TABLET PO SCH (20:12)
[2017-11-16] MEDS: ZOLPIDEM TARTRATE 10 MG TABLET PO PRN (22:14)
[2017-11-17 07:25] VITALS: BP 137/74
[2017-11-17 08:12] VITALS: BP 138/72
[2017-11-17] MEDS ORDERED: RISP1 PO (08:26)
[2017-11-17] MEDS ORDERED: BENZ1TAB10 PO (08:28)
[2017-11-17] MEDS ORDERED: OLAN7.5T2 PO (08:30)
[2017-11-17] MEDS: VALPROIC ACID 250 MG/5 ML SYRUP UDCUP PO SCH ×2 (08:40→16:48)
[2017-11-17] MEDS: OMEPRAZOLE 20 MG CAPSULE PO SCH (08:40)
[2017-11-17] MEDS: AMANTADINE HCL 100 MG CAPSULE PO SCH ×3 (08:40→16:47)
[2017-11-17] MEDS: RisperiDONE 1 MG TABLET PO SCH ×2 (08:40→16:47)
[2017-11-17] MEDS: CARBIDOPA/LEVODOPA 25-100 MG TABLET PO SCH ×3 (08:40→16:47)
[2017-11-17] MEDS: BENZTROPINE MESYLATE 1 MG TABLET PO SCH ×2 (08:40→16:47)
[2017-11-17] MEDS: OMEGA-3/DHA/EPA/FISH OIL 1,000 MG CAPSULE PO SCH (08:40)
[2017-11-17] MEDS: SELENIUM SULFIDE 1% 207 ML SHAMPOO TP SCH (09:45)
[2017-11-17] MEDS: CALCIPOTRIENE 0.005% TP SCH ×2 (09:46→16:47)
[2017-11-17 16:10] VITALS: BP 127/85
[2017-11-17] MEDS: QUEtiapine FUMARATE 200 MG TABLET PO SCH (20:31)
[2017-11-17] MEDS: OLANZapine 7.5 MG TABLET PO SCH (20:32)
[2017-11-18 05:56] VITALS: BP 114/60
[2017-11-18 08:46] VITALS: BP 120/73
[2017-11-18] MEDS: SELENIUM SULFIDE 1% 207 ML SHAMPOO TP SCH (09:15)
[2017-11-18] MEDS: VALPROIC ACID 250 MG/5 ML SYRUP UDCUP PO SCH ×2 (09:15→16:32)
[2017-11-18] MEDS: OMEPRAZOLE 20 MG CAPSULE PO SCH (09:16)
[2017-11-18] MEDS: CALCIPOTRIENE 0.005% TP SCH ×2 (09:16→16:33)
[2017-11-18] MEDS: RisperiDONE 1 MG TABLET PO SCH ×2 (09:16→16:33)
[2017-11-18] MEDS: OMEGA-3/DHA/EPA/FISH OIL 1,000 MG CAPSULE PO SCH (09:16)
[2017-11-18] MEDS: BENZTROPINE MESYLATE 1 MG TABLET PO SCH ×2 (09:16→16:33)
[2017-11-18] MEDS: CARBIDOPA/LEVODOPA 25-100 MG TABLET PO SCH ×3 (09:16→16:33)
[2017-11-18] MEDS: AMANTADINE HCL 100 MG CAPSULE PO SCH ×3 (09:16→16:33)
[2017-11-18] MEDS ORDERED: TUBERCULIN, PURIFIED PROTEIN DERIVATIVE 5 TU/0.1 ML SYG ID ONE (09:45)
[2017-11-18 16:02] VITALS: BP 129/75
[2017-11-18] MEDS: OLANZapine 7.5 MG TABLET PO SCH (20:30)
[2017-11-18] MEDS: QUEtiapine FUMARATE 200 MG TABLET PO SCH (20:30)
[2017-11-19 06:36] VITALS: BP 126/80
[2017-11-19] MEDS: VALPROIC ACID 250 MG/5 ML SYRUP UDCUP PO SCH ×2 (08:08→16:10)
[2017-11-19] MEDS: OMEGA-3/DHA/EPA/FISH OIL 1,000 MG CAPSULE PO SCH (08:08)
[2017-11-19] MEDS: CARBIDOPA/LEVODOPA 25-100 MG TABLET PO SCH ×3 (08:08→16:10)
[2017-11-19] MEDS: AMANTADINE HCL 100 MG CAPSULE PO SCH ×3 (08:09→16:10)
[2017-11-19] MEDS: SELENIUM SULFIDE 1% 207 ML SHAMPOO TP SCH (08:09)
[2017-11-19] MEDS: CALCIPOTRIENE 0.005% TP SCH ×2 (08:09→16:10)
[2017-11-19] MEDS: BENZTROPINE MESYLATE 1 MG TABLET PO SCH ×2 (08:09→16:10)
[2017-11-19] MEDS: RisperiDONE 1 MG TABLET PO SCH (08:09)
[2017-11-19] MEDS: OMEPRAZOLE 20 MG CAPSULE PO SCH (08:09)
[2017-11-19 08:19] VITALS: BP 111/67
[2017-11-19 16:27] VITALS: BP 102/61
[2017-11-19] MEDS: LORazepam 2 MG TABLET PO PRN (18:13)
[2017-11-19] MEDS: QUEtiapine FUMARATE 200 MG TABLET PO SCH (20:10)
[2017-11-19] MEDS: OLANZapine 10 MG TABLET PO SCH (20:10)
[2017-11-19] MEDS: ZOLPIDEM TARTRATE 10 MG TABLET PO PRN (21:50)
[2017-11-20] MEDS: HALOPERIDOL 5 MG TABLET PO PRN (00:03)
[2017-11-20] MEDS: LORazepam 2 MG TABLET PO PRN (00:03)
[2017-11-20 00:05] VITALS: BP 130/86
[2017-11-20 00:29] VITALS: BP_SYST 130
[2017-11-20] MEDS: OMEPRAZOLE 20 MG CAPSULE PO SCH (08:40)
[2017-11-20] MEDS: AMANTADINE HCL 100 MG CAPSULE PO SCH ×3 (08:40→16:09)
[2017-11-20] MEDS: VALPROIC ACID 250 MG/5 ML SYRUP UDCUP PO SCH ×2 (08:40→16:09)
[2017-11-20] MEDS: BENZTROPINE MESYLATE 1 MG TABLET PO SCH ×2 (08:40→16:09)
[2017-11-20] MEDS: OMEGA-3/DHA/EPA/FISH OIL 1,000 MG CAPSULE PO SCH (08:40)
[2017-11-20] MEDS: CARBIDOPA/LEVODOPA 25-100 MG TABLET PO SCH ×3 (08:40→16:09)
[2017-11-20] MEDS: CALCIPOTRIENE 0.005% TP SCH ×2 (08:41→16:09)
[2017-11-20] MEDS: SELENIUM SULFIDE 1% 207 ML SHAMPOO TP SCH (08:41)
[2017-11-20 08:47] VITALS: BP 119/70
[2017-11-20 16:02] VITALS: BP 114/75
[2017-11-20] MEDS: OLANZapine 10 MG TABLET PO SCH (20:13)
[2017-11-20] MEDS: QUEtiapine FUMARATE 200 MG TABLET PO SCH (20:13)
[2017-11-20] MEDS: ZOLPIDEM TARTRATE 10 MG TABLET PO PRN (21:23)
[2017-11-21 00:55] VITALS: BP 118/84
[2017-11-21] MEDS: LORazepam 2 MG TABLET PO PRN ×2 (00:58→05:17)
[2017-11-21] MEDS: HALOPERIDOL 5 MG TABLET PO PRN ×2 (00:59→05:17)
[2017-11-21 05:10] VITALS: BP 126/82
[2017-11-21 08:01] VITALS: BP 134/75
[2017-11-21] MEDS: CARBIDOPA/LEVODOPA 25-100 MG TABLET PO SCH ×3 (08:32→16:33)
[2017-11-21] MEDS: VALPROIC ACID 250 MG/5 ML SYRUP UDCUP PO SCH ×2 (08:32→16:33)
[2017-11-21] MEDS: BENZTROPINE MESYLATE 1 MG TABLET PO SCH ×2 (08:32→16:33)
[2017-11-21] MEDS: OMEPRAZOLE 20 MG CAPSULE PO SCH (08:32)
[2017-11-21] MEDS: OMEGA-3/DHA/EPA/FISH OIL 1,000 MG CAPSULE PO SCH (08:32)
[2017-11-21] MEDS: AMANTADINE HCL 100 MG CAPSULE PO SCH ×3 (08:32→16:33)
[2017-11-21] MEDS: SELENIUM SULFIDE 1% 207 ML SHAMPOO TP SCH (08:32)
[2017-11-21] MEDS: CALCIPOTRIENE 0.005% TP SCH ×2 (08:32→16:33)
[2017-11-21 16:13] VITALS: BP 110/61
[2017-11-21] MEDS: OLANZapine 10 MG TABLET PO SCH (20:29)
[2017-11-21] MEDS: QUEtiapine FUMARATE 200 MG TABLET PO SCH (20:29)
[2017-11-21] MEDS: ZOLPIDEM TARTRATE 10 MG TABLET PO PRN (21:01)
[2017-11-22 03:39] VITALS: BP 118/65
[2017-11-22 08:24] VITALS: BP 116/80
[2017-11-22] MEDS: CARBIDOPA/LEVODOPA 25-100 MG TABLET PO SCH ×3 (09:13→16:34)
[2017-11-22] MEDS: OMEGA-3/DHA/EPA/FISH OIL 1,000 MG CAPSULE PO SCH (09:13)
[2017-11-22] MEDS: AMANTADINE HCL 100 MG CAPSULE PO SCH ×3 (09:13→16:34)
[2017-11-22] MEDS: BENZTROPINE MESYLATE 1 MG TABLET PO SCH ×2 (09:14→16:34)
[2017-11-22] MEDS: OMEPRAZOLE 20 MG CAPSULE PO SCH (09:14)
[2017-11-22] MEDS: VALPROIC ACID 250 MG/5 ML SYRUP UDCUP PO SCH ×2 (09:14→16:33)
[2017-11-22] MEDS: SELENIUM SULFIDE 1% 207 ML SHAMPOO TP SCH (09:15)
[2017-11-22] MEDS: CALCIPOTRIENE 0.005% TP SCH ×2 (09:15→16:34)
[2017-11-22 16:16] VITALS: BP 100/66
[2017-11-22] MEDS: OLANZapine 10 MG TABLET PO SCH (20:37)
[2017-11-22] MEDS: QUEtiapine FUMARATE 200 MG TABLET PO SCH (20:37)
[2017-11-23 04:19] VITALS: BP 110/68
[2017-11-23 08:05] VITALS: BP 107/62
[2017-11-23] MEDS: OMEGA-3/DHA/EPA/FISH OIL 1,000 MG CAPSULE PO SCH (08:44)
[2017-11-23] MEDS: AMANTADINE HCL 100 MG CAPSULE PO SCH ×3 (08:44→16:33)
[2017-11-23] MEDS: VALPROIC ACID 250 MG/5 ML SYRUP UDCUP PO SCH ×2 (08:44→16:32)
[2017-11-23] MEDS: CARBIDOPA/LEVODOPA 25-100 MG TABLET PO SCH ×3 (08:44→16:33)
[2017-11-23] MEDS: BENZTROPINE MESYLATE 1 MG TABLET PO SCH ×2 (08:45→16:33)
[2017-11-23] MEDS: OMEPRAZOLE 20 MG CAPSULE PO SCH (08:45)
[2017-11-23] MEDS: CALCIPOTRIENE 0.005% TP SCH ×2 (08:45→16:33)
[2017-11-23] MEDS: SELENIUM SULFIDE 1% 207 ML SHAMPOO TP SCH (08:46)
[2017-11-23] MEDS: ACETAMINOPHEN 325 MG TABLET PO PRN (08:49)
[2017-11-23 09:49] VITALS: BP 100/69
[2017-11-23 16:02] VITALS: BP 108/71
[2017-11-23] MEDS: IBUPROFEN 600 MG TABLET PO PRN (18:30)
[2017-11-23 18:34] VITALS: BP 116/78
[2017-11-23] MEDS: QUEtiapine FUMARATE 200 MG TABLET PO SCH (20:29)
[2017-11-23] MEDS: OLANZapine 10 MG TABLET PO SCH (20:29)
[2017-11-24 05:21] VITALS: BP 120/81
[2017-11-24] MEDS: BENZTROPINE MESYLATE 1 MG TABLET PO SCH ×2 (08:18→16:29)
[2017-11-24] MEDS: OMEGA-3/DHA/EPA/FISH OIL 1,000 MG CAPSULE PO SCH (08:18)
[2017-11-24] MEDS: OMEPRAZOLE 20 MG CAPSULE PO SCH (08:18)
[2017-11-24] MEDS: CARBIDOPA/LEVODOPA 25-100 MG TABLET PO SCH ×3 (08:19→16:30)
[2017-11-24] MEDS: AMANTADINE HCL 100 MG CAPSULE PO SCH ×3 (08:19→16:30)
[2017-11-24] MEDS: SELENIUM SULFIDE 1% 207 ML SHAMPOO TP SCH (08:20)
[2017-11-24] MEDS: IBUPROFEN 600 MG TABLET PO PRN ×2 (08:20→14:49)
[2017-11-24] MEDS: CALCIPOTRIENE 0.005% TP SCH ×2 (08:20→16:30)
[2017-11-24 08:21] VITALS: BP 117/76
[2017-11-24] MEDS: VALPROIC ACID 250 MG/5 ML SYRUP UDCUP PO SCH ×2 (08:23→16:30)
[2017-11-24 14:39] VITALS: BP 106/69
[2017-11-24 16:02] VITALS: BP 110/73
[2017-11-24] MEDS: QUEtiapine FUMARATE 200 MG TABLET PO SCH (20:36)
[2017-11-24] MEDS: OLANZapine 10 MG TABLET PO SCH (20:36)
[2017-11-24] MEDS: ZOLPIDEM TARTRATE 10 MG TABLET PO PRN (21:46)
[2017-11-25 03:33] VITALS: BP 111/74
[2017-11-25] MEDS: IBUPROFEN 600 MG TABLET PO PRN ×2 (03:35→13:20)
[2017-11-25 08:05] VITALS: BP 118/78
[2017-11-25] MEDS: OMEGA-3/DHA/EPA/FISH OIL 1,000 MG CAPSULE PO SCH (08:26)
[2017-11-25] MEDS: VALPROIC ACID 250 MG/5 ML SYRUP UDCUP PO SCH ×2 (08:26→16:14)
[2017-11-25] MEDS: CARBIDOPA/LEVODOPA 25-100 MG TABLET PO SCH ×3 (08:27→16:13)
[2017-11-25] MEDS: OMEPRAZOLE 20 MG CAPSULE PO SCH (08:27)
[2017-11-25] MEDS: BENZTROPINE MESYLATE 1 MG TABLET PO SCH ×2 (08:27→16:13)
[2017-11-25] MEDS: AMANTADINE HCL 100 MG CAPSULE PO SCH ×3 (08:27→16:13)
[2017-11-25] MEDS: ACETAMINOPHEN 325 MG TABLET PO PRN ×2 (08:27→16:45)
[2017-11-25 09:27] VITALS: BP 114/70
[2017-11-25] MEDS: SELENIUM SULFIDE 1% 207 ML SHAMPOO TP SCH (10:24)
[2017-11-25] MEDS: CALCIPOTRIENE 0.005% TP SCH ×2 (10:25→16:14)
[2017-11-25 16:45] VITALS: BP 118/72
[2017-11-25] MEDS: QUEtiapine FUMARATE 200 MG TABLET PO SCH (20:24)
[2017-11-25] MEDS: ZOLPIDEM TARTRATE 10 MG TABLET PO PRN (20:24)
[2017-11-25] MEDS: OLANZapine 10 MG TABLET PO SCH (20:25)
[2017-11-25] MEDS ORDERED: BENZOCAINE 10% 7 GM GEL TP PRN (21:15)
[2017-11-26 02:21] VITALS: BP 109/67
[2017-11-26] MEDS: OMEPRAZOLE 20 MG CAPSULE PO SCH (08:25)
[2017-11-26] MEDS: IBUPROFEN 600 MG TABLET PO PRN ×2 (08:25→20:25)
[2017-11-26] MEDS: OMEGA-3/DHA/EPA/FISH OIL 1,000 MG CAPSULE PO SCH (08:25)
[2017-11-26] MEDS: BENZTROPINE MESYLATE 1 MG TABLET PO SCH ×2 (08:25→16:41)
[2017-11-26 08:26] VITALS: BP 106/71
[2017-11-26] MEDS: CARBIDOPA/LEVODOPA 25-100 MG TABLET PO SCH ×3 (08:26→16:41)
[2017-11-26] MEDS: CARBAMIDE PEROXIDE 6.5% 15 ML OTIC SOLUTION AU SCH ×2 (08:26→16:42)
[2017-11-26] MEDS: VALPROIC ACID 250 MG/5 ML SYRUP UDCUP PO SCH ×2 (08:26→16:42)
[2017-11-26] MEDS: CALCIPOTRIENE 0.005% TP SCH ×2 (08:27→16:42)
[2017-11-26] MEDS: AMANTADINE HCL 100 MG CAPSULE PO SCH ×3 (08:27→16:41)
[2017-11-26] MEDS: SELENIUM SULFIDE 1% 207 ML SHAMPOO TP SCH (08:28)
[2017-11-26 16:21] VITALS: BP 113/77
[2017-11-26 20:26] VITALS: BP 118/72
[2017-11-26] MEDS: QUEtiapine FUMARATE 200 MG TABLET PO SCH (20:31)
[2017-11-26] MEDS: OLANZapine 10 MG TABLET PO SCH (20:32)
[2017-11-27 05:07] VITALS: BP 120/81
[2017-11-27 08:31] VITALS: BP 113/60
[2017-11-27] MEDS: AMANTADINE HCL 100 MG CAPSULE PO SCH ×3 (08:50→16:33)
[2017-11-27] MEDS: OMEPRAZOLE 20 MG CAPSULE PO SCH (08:50)
[2017-11-27] MEDS: BENZTROPINE MESYLATE 1 MG TABLET PO SCH ×2 (08:50→16:33)
[2017-11-27] MEDS: VALPROIC ACID 250 MG/5 ML SYRUP UDCUP PO SCH ×2 (08:50→16:33)
[2017-11-27] MEDS: OMEGA-3/DHA/EPA/FISH OIL 1,000 MG CAPSULE PO SCH (08:50)
[2017-11-27] MEDS: CARBIDOPA/LEVODOPA 25-100 MG TABLET PO SCH ×3 (08:50→16:33)
[2017-11-27] MEDS: CALCIPOTRIENE 0.005% TP SCH ×2 (08:51→16:33)
[2017-11-27] MEDS: CARBAMIDE PEROXIDE 6.5% 15 ML OTIC SOLUTION AU SCH ×2 (08:52→16:33)
[2017-11-27] MEDS: SELENIUM SULFIDE 1% 207 ML SHAMPOO TP SCH (08:53)
[2017-11-27 08:55] VITALS: BP 113/60
[2017-11-27] MEDS: IBUPROFEN 600 MG TABLET PO PRN ×2 (08:55→18:08)
[2017-11-27 16:09] VITALS: BP 101/60
[2017-11-27 18:00] VITALS: BP 109/63
[2017-11-27] MEDS: QUEtiapine FUMARATE 200 MG TABLET PO SCH (20:33)
[2017-11-27] MEDS: OLANZapine 10 MG TABLET PO SCH (20:33)
[2017-11-28 05:31] VITALS: BP 120/81
[2017-11-28 08:21] VITALS: BP 114/67
[2017-11-28] MEDS: VALPROIC ACID 250 MG/5 ML SYRUP UDCUP PO SCH ×2 (08:32→16:31)
[2017-11-28] MEDS: BENZTROPINE MESYLATE 1 MG TABLET PO SCH ×2 (08:32→16:31)
[2017-11-28] MEDS: AMANTADINE HCL 100 MG CAPSULE PO SCH ×3 (08:32→16:31)
[2017-11-28] MEDS: OMEGA-3/DHA/EPA/FISH OIL 1,000 MG CAPSULE PO SCH (08:32)
[2017-11-28] MEDS: OMEPRAZOLE 20 MG CAPSULE PO SCH (08:32)
[2017-11-28] MEDS: CARBIDOPA/LEVODOPA 25-100 MG TABLET PO SCH ×3 (08:32→16:31)
[2017-11-28] MEDS: CARBAMIDE PEROXIDE 6.5% 15 ML OTIC SOLUTION AU SCH ×2 (08:34→16:30)
[2017-11-28] MEDS: SELENIUM SULFIDE 1% 207 ML SHAMPOO TP SCH (10:55)
[2017-11-28] MEDS: CALCIPOTRIENE 0.005% TP SCH ×2 (10:55→16:31)
[2017-11-28] MEDS: BENZOCAINE 10% 7 GM GEL TP SCH ×3 (12:42→23:57)
[2017-11-28] MEDS: AMOXICILLIN TRIHYDRATE 250 MG CAPSULE PO SCH ×2 (12:43→20:31)
[2017-11-28 15:57] VITALS: BP 136/80
[2017-11-28] MEDS: IBUPROFEN 600 MG TABLET PO PRN (16:05)
[2017-11-28] MEDS: OLANZapine 10 MG TABLET PO SCH (20:31)
[2017-11-28] MEDS: QUEtiapine FUMARATE 200 MG TABLET PO SCH (20:31)
[2017-11-28] MEDS: LORazepam 2 MG TABLET PO PRN (23:46)
[2017-11-29] VITALS: BP 130/86
[2017-11-29] MEDS: BENZOCAINE 10% 7 GM GEL TP SCH (06:01)
[2017-11-29 08:07] VITALS: BP 107/74
[2017-11-29] MEDS: OMEPRAZOLE 20 MG CAPSULE PO SCH (08:20)
[2017-11-29] MEDS: AMOXICILLIN TRIHYDRATE 250 MG CAPSULE PO SCH (08:21)
[2017-11-29] MEDS: CARBIDOPA/LEVODOPA 25-100 MG TABLET PO SCH (08:21)
[2017-11-29] MEDS: VALPROIC ACID 250 MG/5 ML SYRUP UDCUP PO SCH (08:21)
[2017-11-29] MEDS: OMEGA-3/DHA/EPA/FISH OIL 1,000 MG CAPSULE PO SCH (08:21)
[2017-11-29] MEDS: AMANTADINE HCL 100 MG CAPSULE PO SCH (08:21)
[2017-11-29] MEDS: CARBAMIDE PEROXIDE 6.5% 15 ML OTIC SOLUTION AU SCH (08:21)
[2017-11-29] MEDS: BENZTROPINE MESYLATE 1 MG TABLET PO SCH (08:21)
[2017-11-29] MEDS ORDERED: CARB-224 AU (08:21)
[2017-11-29] MEDS ORDERED: AMOX250C4 PO (08:23)
[2017-11-29] MEDS: SELENIUM SULFIDE 1% 207 ML SHAMPOO TP SCH (09:28)
[2017-11-29] MEDS: CALCIPOTRIENE 0.005% TP SCH (09:29)
== END 2017-11-29 10:15 | disposition home or self-care (01) | DRG 885 ==
LOC: B2X 20:45
PROVIDERS: ADMIT Psychiatry & Neurology Psychiatry; ATTEND Psychiatry & Neurology Psychiatry
DX: F20.0 Paranoid schizophrenia (principal); F17.200 Nicotine dependence, unspecified, uncomplicated; Z71.6 Tobacco abuse counseling; G20 Parkinson's disease; G24.9 Dystonia, unspecified; G47.00 Insomnia, unspecified; I10 Essential (primary) hypertension; J44.9 Chronic obstructive pulmonary disease, unspecified; K02.9 Dental caries, unspecified; K21.9 Gastro-esophageal reflux disease without esophagitis; K59.00 Constipation, unspecified; L40.9 Psoriasis, unspecified; F41.9 Anxiety disorder, unspecified; Z53.20 Procedure and treatment not carried out because of patient's decision for unspecified reasons
CPT/HCPCS: 83036; 84439; 84443; 87081; J1200

== ENCOUNTER 2017-12-19 15:01 | Inpatient (IN) | payer OTHER, MEDICAID ==
[~2017-12-19] VITALS: Ht 167.6 cm; Wt 67.6 kg
[~2017-12-19 15:01] MED LIST changes: +AMOX250C4 PO; +BENZ1TAB10 PO; +CALC560C TP; +CARB-224 AU; -DIVA500T52 PO; -DSS100 PO; -FLUO-191 PO; +OLAN7.5T2 PO; +VALP250C PO
[2017-12-19] MEDS ORDERED: HALOPERIDOL 5 MG TABLET PO ONE (15:30)
[2017-12-19 15:39] LABS: BASOPHILS % (AUTO) 0.5 % (0.0-2.0); EOSINOPHILS % (AUTO) 1.4 % (1.0-6.0); HEMATOCRIT 41.8 % (41-53); HEMOGLOBIN 14.3 g/dL (13.5-17.5); LYMPHOCYTES # (AUTO) 1.3 K/uL (1.0-4.8); LYMPHOCYTES % (AUTO) 16.4 % (22.0-44.0); MEAN CORPUSCULAR HEMOGLOBIN 29.8 pg (26.0-34.0); MEAN CORPUSCULAR HGB CONC 34.1 G/dL (31.0-37.0); MEAN CORPUSCULAR VOLUME 87 fL (80-100); MONOCYTES # (AUTO) 0.7 K/uL (0.1-1.0); MONOCYTES % (AUTO) 8.5 % (2.0-9.0); NEUTROPHILS % (AUTO) 73.2 % (40.0-70.0); PLATELET COUNT (AUTO) 243 K/uL (150-450); RED BLOOD CELL COUNT(AUTO) 4.79 MIL/uL (4.50-5.90); RED CELL DISTRIBUTION WIDTH 14.6 % (11.5-14.5)
[2017-12-19 15:51] LABS: ANION GAP 6 mmol/L (8-16); CALCIUM, TOTAL 9.1 mg/dL (8.8-10.5); CARBON DIOXIDE 30 mmol/L (22-29); CHLORIDE 100 mmol/L (98-107); CREATININE 1.06 mg/dL (0.60-1.30); GLOMERULAR FILTR. RATE CALC > 60 mL/min (>60); GLUCOSE,RANDOM 95 mg/dL (70-110); POTASSIUM 4.1 mmol/L (3.5-5.1); SODIUM SERUM 136 mmol/L (136-145); UREA NITROGEN, BLOOD 16 mg/dL (7-18)
[2017-12-19 15:57] LABS: ALANINE AMINOTRANSFERASE 24 U/L (12-78); ALBUMIN 3.7 g/dL (3.4-5.0); ALKALINE PHOSPHATASE 85 U/L (46-116); ASPARTATE AMINOTRANSFERASE 14 U/L (15-37); BILIRUBIN,TOTAL 0.5 mg/dL (0.1-1.0); TOTAL PROTEIN, SERUM 7.6 g/dL (6.4-8.2); VALPROIC ACID 3 mcg/mL (50-100)
[2017-12-19] MEDS ORDERED: ZOLPIDEM TARTRATE 10 MG TABLET PO PRN (18:00)
[2017-12-19] MEDS ORDERED: HALOPERIDOL 5 MG TABLET PO PRN (18:00)
[2017-12-19 19:15] LABS: AMPHET/METH SCREEN,URINE NEGATIVE (NEGATIVE); BARBITURATE SCREEN, URINE NEGATIVE (NEGATIVE); BENZODIAZEPINES SCREEN,URINE NEGATIVE (NEGATIVE); CANNABINOID SCREEN,URINE NEGATIVE (NEGATIVE); COCAINE SCREEN,URINE NEGATIVE (NEGATIVE); METHADONE SCREEN, URINE NEGATIVE (NEGATIVE); OPIATE SCREEN,URINE NEGATIVE (NEGATIVE); PHENCYCLIDINE SCREEN,URINE NEGATIVE (NEGATIVE)
[2017-12-19 20:25] VITALS: BP 144/85
[2017-12-19] MEDS ORDERED: IBUPROFEN 600 MG TABLET PO PRN (21:45)
[2017-12-19] MEDS ORDERED: ACETAMINOPHEN 325 MG TABLET PO PRN (21:45)
[2017-12-20 01:00] VITALS: BP 102/63
[2017-12-20] MEDS: LORazepam 2 MG TABLET PO PRN ×2 (01:15→16:17)
[2017-12-20] MEDS: AMANTADINE HCL 100 MG CAPSULE PO SCH ×3 (09:01→16:18)
[2017-12-20] MEDS: CARBIDOPA/LEVODOPA 25-100 MG TABLET PO SCH ×3 (09:01→16:18)
[2017-12-20] MEDS: OMEGA-3/DHA/EPA/FISH OIL 1,000 MG CAPSULE PO SCH (09:01)
[2017-12-20] MEDS: OMEPRAZOLE 20 MG CAPSULE PO SCH (09:01)
[2017-12-20] MEDS: BENZTROPINE MESYLATE 1 MG TABLET PO SCH ×2 (09:01→16:17)
[2017-12-20] MEDS: CALCIPOTRIENE 0.005% 60 GM CREAM TP SCH ×2 (09:26→16:18)
[2017-12-20 09:50] VITALS: BP 99/60
[2017-12-20] MEDS ORDERED: OLAN10TA3 PO (13:54)
[2017-12-20] MEDS ORDERED: MAGNESIUM HYDROXIDE SUSPENSION 30 ML UDCUP PO PRN ×2 (14:00→18:00)
[2017-12-20 17:00] VITALS: BP 101/72
[2017-12-20] MEDS ORDERED: BENZOCAINE/MENTHOL LOZENGE MM PRN (18:00)
[2017-12-20] MEDS ORDERED: PETROLATUM,WHITE 71 GM JELLY TP PRN (18:00)
[2017-12-20] MEDS ORDERED: LOPERAMIDE HCL 2 MG CAPSULE PO PRN (18:00)
[2017-12-20] MEDS ORDERED: CloNIDine HCL 0.1 MG TABLET PO PRN (18:00)
[2017-12-20] MEDS ORDERED: MAG HYDROX/AL HYDROX/SIMETH ES 30 ML SUSPENSION UDCUP PO PRN (18:00)
[2017-12-20] MEDS ORDERED: ONDANSETRON HCL 4 MG TABLET PO PRN (18:00)
[2017-12-20] MEDS ORDERED: BACITRACIN 28.4 GM OINTMENT TP PRN (18:00)
[2017-12-20] MEDS ORDERED: ALBUTEROL SULFATE HFA 90 MCG/PUFF 8 GM INHALER IH PRN (18:00)
[2017-12-20] MEDS: OLANZapine 7.5 MG TABLET PO SCH (20:19)
[2017-12-21 08:10] VITALS: BP 137/80
[2017-12-21] MEDS: OMEGA-3/DHA/EPA/FISH OIL 1,000 MG CAPSULE PO SCH (08:40)
[2017-12-21] MEDS: CARBIDOPA/LEVODOPA 25-100 MG TABLET PO SCH ×3 (08:40→16:04)
[2017-12-21] MEDS: AMANTADINE HCL 100 MG CAPSULE PO SCH ×3 (08:40→16:04)
[2017-12-21] MEDS: BENZTROPINE MESYLATE 1 MG TABLET PO SCH ×2 (08:40→16:04)
[2017-12-21] MEDS: DOCUSATE SODIUM 100 MG CAPSULE PO SCH (08:40)
[2017-12-21] MEDS: OMEPRAZOLE 20 MG CAPSULE PO SCH (08:40)
[2017-12-21] MEDS: CALCIPOTRIENE 0.005% 60 GM CREAM TP SCH ×2 (09:27→16:04)
[2017-12-21 19:29] VITALS: BP 104/57
[2017-12-21] MEDS: OLANZapine 7.5 MG TABLET PO SCH (21:19)
[2017-12-22] MEDS: OMEGA-3/DHA/EPA/FISH OIL 1,000 MG CAPSULE PO SCH (08:39)
[2017-12-22] MEDS: CALCIPOTRIENE 0.005% 60 GM CREAM TP SCH ×2 (08:39→17:19)
[2017-12-22] MEDS: AMANTADINE HCL 100 MG CAPSULE PO SCH ×3 (08:39→17:19)
[2017-12-22] MEDS: BENZTROPINE MESYLATE 1 MG TABLET PO SCH ×2 (08:39→17:19)
[2017-12-22] MEDS: DOCUSATE SODIUM 100 MG CAPSULE PO SCH (08:39)
[2017-12-22] MEDS: CARBIDOPA/LEVODOPA 25-100 MG TABLET PO SCH ×3 (08:39→17:19)
[2017-12-22] MEDS: OMEPRAZOLE 20 MG CAPSULE PO SCH (08:39)
[2017-12-22 09:35] VITALS: BP 123/78
[2017-12-22] MEDS: LORazepam 2 MG TABLET PO PRN (14:00)
[2017-12-22 16:00] VITALS: BP 127/74
[2017-12-22] MEDS: OLANZapine 7.5 MG TABLET PO SCH (21:11)
[2017-12-23 08:05] VITALS: BP 159/115
[2017-12-23] MEDS: CALCIPOTRIENE 0.005% 60 GM CREAM TP SCH (08:44)
[2017-12-23] MEDS: OMEGA-3/DHA/EPA/FISH OIL 1,000 MG CAPSULE PO SCH (08:45)
[2017-12-23] MEDS: DOCUSATE SODIUM 100 MG CAPSULE PO SCH (08:45)
[2017-12-23] MEDS: AMANTADINE HCL 100 MG CAPSULE PO SCH ×2 (08:45→12:37)
[2017-12-23] MEDS: OMEPRAZOLE 20 MG CAPSULE PO SCH (08:45)
[2017-12-23] MEDS: BENZTROPINE MESYLATE 1 MG TABLET PO SCH (08:45)
[2017-12-23] MEDS: CARBIDOPA/LEVODOPA 25-100 MG TABLET PO SCH ×2 (08:45→12:37)
[2017-12-23] MEDS ORDERED: OLAN7.5T2 PO (11:07)
[2017-12-23] MEDS ORDERED: DSS100 PO (11:10)
[2017-12-23] MEDS ORDERED: BENZ1TAB10 PO (11:24)
[2017-12-23] MEDS: LORazepam 2 MG TABLET PO PRN (11:39)
[2017-12-24] MEDS ORDERED: CARBIDOPA/LEVODOPA 50-200 MG ER TABLET PO SCH (09:00)
== END 2017-12-23 14:25 | disposition home or self-care (01) | DRG 885 ==
LOC: EMS 15:02 → 3EX 18:32
PROVIDERS: ADMIT Psychiatry & Neurology Psychiatry; ATTEND Psychiatry & Neurology Psychiatry
DX: F25.9 Schizoaffective disorder, unspecified (principal); R45.851 Suicidal ideations; K59.00 Constipation, unspecified; K21.9 Gastro-esophageal reflux disease without esophagitis; J44.9 Chronic obstructive pulmonary disease, unspecified; I10 Essential (primary) hypertension; G47.00 Insomnia, unspecified; G20 Parkinson's disease; F17.200 Nicotine dependence, unspecified, uncomplicated; R26.9 Unspecified abnormalities of gait and mobility; Z79.899 Other long term (current) drug therapy; Z28.21 Immunization not carried out because of patient refusal; Z56.0 Unemployment, unspecified
CPT/HCPCS: 87081; G0378; G0480

== ENCOUNTER 2017-12-28 02:46 | Emergency (ER) | payer MEDICARE, MEDICAID ==
[~2017-12-28] VITALS: Ht 172.7 cm; Wt 67.5 kg
[~2017-12-28 02:46] MED LIST changes: -AMOX250C4 PO; -CARB-224 AU; +DSS100 PO; -QUET200T PO; -VALP250C PO
[2017-12-28 04:21] LABS: AMPHET/METH SCREEN,URINE POSITIVE (NEGATIVE); BARBITURATE SCREEN, URINE NEGATIVE (NEGATIVE); BENZODIAZEPINES SCREEN,URINE NEGATIVE (NEGATIVE); CANNABINOID SCREEN,URINE POSITIVE (NEGATIVE); COCAINE SCREEN,URINE NEGATIVE (NEGATIVE); METHADONE SCREEN, URINE NEGATIVE (NEGATIVE); OPIATE SCREEN,URINE NEGATIVE (NEGATIVE); PHENCYCLIDINE SCREEN,URINE NEGATIVE (NEGATIVE)
[2017-12-28 04:22] LABS: BASOPHILS % (AUTO) 0.6 % (0.0-2.0); HEMOGLOBIN 14.9 g/dL (13.5-17.5); LYMPHOCYTES # (AUTO) 1.7 K/uL (1.0-4.8); LYMPHOCYTES % (AUTO) 21.1 % (22.0-44.0); MEAN CORPUSCULAR HEMOGLOBIN 30.2 pg (26.0-34.0); MEAN CORPUSCULAR HGB CONC 34.7 G/dL (31.0-37.0); MEAN CORPUSCULAR VOLUME 87 fL (80-100); MONOCYTES # (AUTO) 0.9 K/uL (0.1-1.0); MONOCYTES % (AUTO) 10.9 % (2.0-9.0); NEUTROPHILS # (AUTO) 5.4 K/uL (1.8-7.7); NEUTROPHILS % (AUTO) 66.4 % (40.0-70.0); PLATELET COUNT (AUTO) 259 K/uL (150-450); RED BLOOD CELL COUNT(AUTO) 4.93 MIL/uL (4.50-5.90); RED CELL DISTRIBUTION WIDTH 14.4 % (11.5-14.5)
[2017-12-28 04:31] LABS: ANION GAP 5 mmol/L (8-16); CALCIUM, TOTAL 9.2 mg/dL (8.8-10.5); CARBON DIOXIDE 33 mmol/L (22-29); CHLORIDE 100 mmol/L (98-107); GLOMERULAR FILTR. RATE CALC > 60 mL/min (>60); GLUCOSE,RANDOM 116 mg/dL (70-110); POTASSIUM 3.8 mmol/L (3.5-5.1); SODIUM SERUM 138 mmol/L (136-145); UREA NITROGEN, BLOOD 12 mg/dL (7-18)
[2017-12-28 04:37] LABS: ALANINE AMINOTRANSFERASE 38 U/L (12-78); ALBUMIN 3.9 g/dL (3.4-5.0); ALKALINE PHOSPHATASE 101 U/L (46-116); ASPARTATE AMINOTRANSFERASE 29 U/L (15-37); BILIRUBIN,TOTAL 0.6 mg/dL (0.1-1.0); TOTAL PROTEIN, SERUM 8.1 g/dL (6.4-8.2)
[2017-12-28 05:11] VITALS: BP 135/82
== END 2017-12-28 09:06 | disposition home or self-care (01) ==
LOC: EMS 02:51
DX: F25.9 Schizoaffective disorder, unspecified (principal); F41.9 Anxiety disorder, unspecified; Z79.899 Other long term (current) drug therapy
CPT/HCPCS: 36415; 80053; 80307; 85025; 99284; G0480

== ENCOUNTER 2017-12-28 20:52 | Inpatient (IN) | payer OTHER, MEDICAID ==
[~2017-12-28] VITALS: Ht 175.3 cm; Wt 61.2 kg
[2017-12-28 21:52] LABS: BASOPHILS % (AUTO) 0.7 % (0.0-2.0); EOSINOPHILS % (AUTO) 1.9 % (1.0-6.0); HEMATOCRIT 41.7 % (41-53); HEMOGLOBIN 14.5 g/dL (13.5-17.5); LYMPHOCYTES # (AUTO) 1.9 K/uL (1.0-4.8); LYMPHOCYTES % (AUTO) 26.4 % (22.0-44.0); MEAN CORPUSCULAR HEMOGLOBIN 29.7 pg (26.0-34.0); MEAN CORPUSCULAR HGB CONC 34.7 G/dL (31.0-37.0); MEAN CORPUSCULAR VOLUME 86 fL (80-100); MONOCYTES # (AUTO) 0.9 K/uL (0.1-1.0); NEUTROPHILS # (AUTO) 4.2 K/uL (1.8-7.7); PLATELET COUNT (AUTO) 239 K/uL (150-450); RED BLOOD CELL COUNT(AUTO) 4.87 MIL/uL (4.50-5.90); RED CELL DISTRIBUTION WIDTH 14.4 % (11.5-14.5)
[2017-12-28 22:01] LABS: ANION GAP 9 mmol/L (8-16); CARBON DIOXIDE 29 mmol/L (22-29); CHLORIDE 99 mmol/L (98-107); GLOMERULAR FILTR. RATE CALC > 60 mL/min (>60); GLUCOSE,RANDOM 101 mg/dL (70-110); POTASSIUM 3.7 mmol/L (3.5-5.1); SODIUM SERUM 137 mmol/L (136-145); UREA NITROGEN, BLOOD 9 mg/dL (7-18)
[2017-12-28 22:06] LABS: ALANINE AMINOTRANSFERASE 36 U/L (12-78); ALBUMIN 3.7 g/dL (3.4-5.0); ALKALINE PHOSPHATASE 98 U/L (46-116); ASPARTATE AMINOTRANSFERASE 41 U/L (15-37); BILIRUBIN,TOTAL 0.8 mg/dL (0.1-1.0); TOTAL PROTEIN, SERUM 7.5 g/dL (6.4-8.2)
[2017-12-28 22:40] LABS: AMPHET/METH SCREEN,URINE NEGATIVE (NEGATIVE); BARBITURATE SCREEN, URINE NEGATIVE (NEGATIVE); BENZODIAZEPINES SCREEN,URINE NEGATIVE (NEGATIVE); CANNABINOID SCREEN,URINE POSITIVE (NEGATIVE); COCAINE SCREEN,URINE NEGATIVE (NEGATIVE); METHADONE SCREEN, URINE NEGATIVE (NEGATIVE); OPIATE SCREEN,URINE NEGATIVE (NEGATIVE)
[2017-12-28 22:41] LABS: PHENCYCLIDINE SCREEN,URINE NEGATIVE (NEGATIVE)
[2017-12-29] MEDS: HALOPERIDOL 5 MG TABLET PO PRN (01:32)
[2017-12-29] MEDS: LORazepam 2 MG TABLET PO PRN (01:32)
[2017-12-29 02:39] VITALS: BP 115/81
[2017-12-29] MEDS: ZOLPIDEM TARTRATE 10 MG TABLET PO PRN ×2 (02:53→21:27)
[2017-12-29] MEDS ORDERED: OMEPRAZOLE 20 MG CAPSULE PO PRN (06:45)
[2017-12-29] MEDS ORDERED: LOPERAMIDE HCL 2 MG CAPSULE PO PRN (06:45)
[2017-12-29] MEDS ORDERED: MAGNESIUM HYDROXIDE SUSPENSION 30 ML UDCUP PO PRN (06:45)
[2017-12-29] MEDS ORDERED: DOCUSATE SODIUM 100 MG CAPSULE PO PRN (06:45)
[2017-12-29] MEDS ORDERED: ONDANSETRON HCL 4 MG TABLET PO PRN (06:45)
[2017-12-29] MEDS ORDERED: BACITRACIN 28.4 GM OINTMENT TP PRN (06:45)
[2017-12-29] MEDS ORDERED: ACETAMINOPHEN 325 MG TABLET PO PRN (06:45)
[2017-12-29] MEDS ORDERED: MAG HYDROX/AL HYDROX/SIMETH ES 30 ML SUSPENSION UDCUP PO PRN (06:45)
[2017-12-29] MEDS ORDERED: ALBUTEROL SULFATE HFA 90 MCG/PUFF 8 GM INHALER IH PRN (06:45)
[2017-12-29] MEDS ORDERED: CloNIDine HCL 0.1 MG TABLET PO PRN (06:45)
[2017-12-29] MEDS ORDERED: PETROLATUM,WHITE 71 GM JELLY TP PRN (06:45)
[2017-12-29] MEDS ORDERED: BENZOCAINE/MENTHOL LOZENGE MM PRN (06:45)
[2017-12-29] MEDS: OMEGA-3/DHA/EPA/FISH OIL 1,000 MG CAPSULE PO SCH (08:59)
[2017-12-29] MEDS: CARBIDOPA/LEVODOPA 25-100 MG TABLET PO SCH ×3 (09:00→16:28)
[2017-12-29 16:00] VITALS: BP 115/75
[2017-12-29] MEDS: OLANZapine 7.5 MG TABLET PO SCH (20:41)
[2017-12-30 03:10] VITALS: BP 120/83
[2017-12-30] MEDS: HALOPERIDOL 5 MG TABLET PO PRN (03:29)
[2017-12-30] MEDS: LORazepam 2 MG TABLET PO PRN (03:29)
[2017-12-30 08:04] VITALS: BP 122/82
[2017-12-30] MEDS: BENZTROPINE MESYLATE 1 MG TABLET PO SCH ×2 (08:09→16:31)
[2017-12-30] MEDS: OMEGA-3/DHA/EPA/FISH OIL 1,000 MG CAPSULE PO SCH (08:09)
[2017-12-30] MEDS: CARBIDOPA/LEVODOPA 25-100 MG TABLET PO SCH ×3 (08:09→16:31)
[2017-12-30 16:11] VITALS: BP 119/78
[2017-12-30] MEDS: OLANZapine 7.5 MG TABLET PO SCH (20:30)
[2017-12-30] MEDS: ZOLPIDEM TARTRATE 10 MG TABLET PO PRN (21:24)
[2017-12-31 06:55] VITALS: BP 110/62
[2017-12-31] MEDS: BENZTROPINE MESYLATE 1 MG TABLET PO SCH ×2 (08:13→16:48)
[2017-12-31] MEDS: OMEGA-3/DHA/EPA/FISH OIL 1,000 MG CAPSULE PO SCH (08:13)
[2017-12-31] MEDS: CARBIDOPA/LEVODOPA 25-100 MG TABLET PO SCH ×3 (08:13→16:48)
[2017-12-31 08:17] VITALS: BP 112/75
[2017-12-31 16:20] VITALS: BP 120/74
[2017-12-31] MEDS: OLANZapine 7.5 MG TABLET PO SCH (20:15)
[2017-12-31] MEDS: ZOLPIDEM TARTRATE 10 MG TABLET PO PRN (23:34)
[2018-01-01 05:45] VITALS: BP 118/70
[2018-01-01 08:19] VITALS: BP 112/69
[2018-01-01] MEDS: OMEGA-3/DHA/EPA/FISH OIL 1,000 MG CAPSULE PO SCH (08:23)
[2018-01-01] MEDS: BENZTROPINE MESYLATE 1 MG TABLET PO SCH ×2 (08:23→16:33)
[2018-01-01] MEDS: CARBIDOPA/LEVODOPA 25-100 MG TABLET PO SCH ×3 (08:23→16:33)
[2018-01-01 16:23] VITALS: BP 109/69
[2018-01-01] MEDS: OLANZapine 7.5 MG TABLET PO SCH (20:29)
[2018-01-01] MEDS: ZOLPIDEM TARTRATE 10 MG TABLET PO PRN (21:32)
[2018-01-02 03:07] VITALS: BP 124/79
[2018-01-02] MEDS: LORazepam 2 MG TABLET PO PRN ×2 (03:14→20:28)
[2018-01-02 07:58] VITALS: BP 126/80
[2018-01-02 08:01] VITALS: BP 126/80
[2018-01-02] MEDS: CARBIDOPA/LEVODOPA 25-100 MG TABLET PO SCH ×3 (08:05→16:29)
[2018-01-02] MEDS: OMEGA-3/DHA/EPA/FISH OIL 1,000 MG CAPSULE PO SCH (08:05)
[2018-01-02] MEDS: BENZTROPINE MESYLATE 1 MG TABLET PO SCH ×2 (08:05→16:29)
[2018-01-02 16:01] VITALS: BP 118/69
[2018-01-02] MEDS: OLANZapine 7.5 MG TABLET PO SCH (20:28)
[2018-01-02] MEDS: ZOLPIDEM TARTRATE 10 MG TABLET PO PRN (22:38)
[2018-01-03 05:05] VITALS: BP 110/68
[2018-01-03] MEDS: CARBIDOPA/LEVODOPA 25-100 MG TABLET PO SCH ×3 (08:00→16:29)
[2018-01-03] MEDS: BENZTROPINE MESYLATE 1 MG TABLET PO SCH ×2 (08:00→16:29)
[2018-01-03] MEDS: OMEGA-3/DHA/EPA/FISH OIL 1,000 MG CAPSULE PO SCH (08:00)
[2018-01-03 08:05] VITALS: BP 110/70
[2018-01-03] MEDS: DIVALPROEX SODIUM 250 MG DR TABLET PO SCH ×2 (12:47→20:31)
[2018-01-03 16:03] VITALS: BP 116/78
[2018-01-03] MEDS: OLANZapine 10 MG TABLET PO SCH (20:31)
[2018-01-03] MEDS: LORazepam 2 MG TABLET PO PRN (20:52)
[2018-01-03] MEDS: ZOLPIDEM TARTRATE 10 MG TABLET PO PRN (22:54)
[2018-01-04 05:14] VITALS: BP 110/68
[2018-01-04 08:00] VITALS: BP 123/80
[2018-01-04] MEDS: CARBIDOPA/LEVODOPA 25-100 MG TABLET PO SCH ×3 (08:19→16:29)
[2018-01-04] MEDS: OMEGA-3/DHA/EPA/FISH OIL 1,000 MG CAPSULE PO SCH (08:19)
[2018-01-04] MEDS: BENZTROPINE MESYLATE 1 MG TABLET PO SCH ×2 (08:19→16:29)
[2018-01-04] MEDS: DIVALPROEX SODIUM 250 MG DR TABLET PO SCH ×2 (13:03→20:23)
[2018-01-04 16:15] VITALS: BP 112/74
[2018-01-04] MEDS: OLANZapine 10 MG TABLET PO SCH (20:23)
[2018-01-04] MEDS: ZOLPIDEM TARTRATE 10 MG TABLET PO PRN (21:03)
[2018-01-05 06:07] VITALS: BP 110/68
[2018-01-05 07:50] VITALS: BP 117/73
[2018-01-05] MEDS: BENZTROPINE MESYLATE 1 MG TABLET PO SCH ×2 (09:34→16:08)
[2018-01-05] MEDS: OMEGA-3/DHA/EPA/FISH OIL 1,000 MG CAPSULE PO SCH (09:34)
[2018-01-05] MEDS: CARBIDOPA/LEVODOPA 25-100 MG TABLET PO SCH ×3 (09:34→16:08)
[2018-01-05 09:46] VITALS: BP 117/73
[2018-01-05] MEDS: DIVALPROEX SODIUM 250 MG DR TABLET PO SCH ×2 (12:46→20:29)
[2018-01-05 16:01] VITALS: BP 114/73
[2018-01-05] MEDS: OLANZapine 10 MG TABLET PO SCH (20:29)
[2018-01-05] MEDS: ZOLPIDEM TARTRATE 10 MG TABLET PO PRN (20:54)
[2018-01-06] MEDS: LORazepam 2 MG TABLET PO PRN (02:45)
[2018-01-06 03:07] VITALS: BP 110/70
[2018-01-06] MEDS: IBUPROFEN 600 MG TABLET PO PRN (03:10)
[2018-01-06 08:10] VITALS: BP 123/58
[2018-01-06] MEDS: OMEGA-3/DHA/EPA/FISH OIL 1,000 MG CAPSULE PO SCH (08:27)
[2018-01-06] MEDS: CARBIDOPA/LEVODOPA 25-100 MG TABLET PO SCH ×3 (08:27→16:30)
[2018-01-06] MEDS: BENZTROPINE MESYLATE 1 MG TABLET PO SCH ×2 (08:27→16:31)
[2018-01-06] MEDS: DIVALPROEX SODIUM 250 MG DR TABLET PO SCH ×2 (12:23→20:32)
[2018-01-06 19:49] VITALS: BP 116/71
[2018-01-06] MEDS: OLANZapine 10 MG TABLET PO SCH (20:33)
[2018-01-06] MEDS: ZOLPIDEM TARTRATE 10 MG TABLET PO PRN (21:10)
[2018-01-07] MEDS: LORazepam 2 MG TABLET PO PRN (01:57)
[2018-01-07 02:00] VITALS: BP 116/74
[2018-01-07] MEDS: IBUPROFEN 600 MG TABLET PO PRN (02:00)
[2018-01-07 08:12] VITALS: BP 122/84
[2018-01-07] MEDS: CARBIDOPA/LEVODOPA 25-100 MG TABLET PO SCH ×3 (09:50→16:30)
[2018-01-07] MEDS: OMEGA-3/DHA/EPA/FISH OIL 1,000 MG CAPSULE PO SCH (09:50)
[2018-01-07] MEDS: BENZTROPINE MESYLATE 1 MG TABLET PO SCH ×2 (09:50→16:30)
[2018-01-07] MEDS: DIVALPROEX SODIUM 250 MG DR TABLET PO SCH ×2 (12:45→20:39)
[2018-01-07 16:10] VITALS: BP 104/68
[2018-01-07] MEDS: OLANZapine 10 MG TABLET PO SCH (20:39)
[2018-01-07] MEDS: ZOLPIDEM TARTRATE 10 MG TABLET PO PRN (21:01)
[2018-01-08 00:30] VITALS: BP 115/71
[2018-01-08] MEDS: LORazepam 2 MG TABLET PO PRN ×2 (01:05→05:28)
[2018-01-08 05:15] VITALS: BP 114/76
[2018-01-08 08:20] VITALS: BP 110/72
[2018-01-08] MEDS: BENZTROPINE MESYLATE 1 MG TABLET PO SCH ×2 (08:57→16:04)
[2018-01-08] MEDS: OMEGA-3/DHA/EPA/FISH OIL 1,000 MG CAPSULE PO SCH (08:57)
[2018-01-08] MEDS: CARBIDOPA/LEVODOPA 25-100 MG TABLET PO SCH ×3 (08:57→16:04)
[2018-01-08] MEDS: DIVALPROEX SODIUM 250 MG DR TABLET PO SCH ×2 (12:25→20:15)
[2018-01-08 12:35] VITALS: BP 112/74
[2018-01-08] MEDS: IBUPROFEN 600 MG TABLET PO PRN (12:35)
[2018-01-08 16:01] VITALS: BP 104/66
[2018-01-08] MEDS: OLANZapine 10 MG TABLET PO SCH (20:15)
[2018-01-08] MEDS: ZOLPIDEM TARTRATE 10 MG TABLET PO PRN (21:50)
[2018-01-09 00:30] VITALS: BP 110/68
[2018-01-09] MEDS: LORazepam 2 MG TABLET PO PRN (00:37)
[2018-01-09] MEDS: CARBIDOPA/LEVODOPA 25-100 MG TABLET PO SCH ×3 (08:07→16:29)
[2018-01-09] MEDS: OMEGA-3/DHA/EPA/FISH OIL 1,000 MG CAPSULE PO SCH (08:07)
[2018-01-09] MEDS: BENZTROPINE MESYLATE 1 MG TABLET PO SCH ×2 (08:07→16:29)
[2018-01-09 08:24] VITALS: BP 116/76
[2018-01-09] MEDS: DIVALPROEX SODIUM 250 MG DR TABLET PO SCH ×2 (12:46→20:27)
[2018-01-09 16:00] VITALS: BP 106/68
[2018-01-09] MEDS: OLANZapine 10 MG TABLET PO SCH (20:27)
[2018-01-09] MEDS: ZOLPIDEM TARTRATE 10 MG TABLET PO PRN (20:57)
[2018-01-10 00:07] VITALS: BP 110/68
[2018-01-10] MEDS: LORazepam 2 MG TABLET PO PRN (00:12)
[2018-01-10 08:24] VITALS: BP 116/77
[2018-01-10] MEDS: OMEGA-3/DHA/EPA/FISH OIL 1,000 MG CAPSULE PO SCH (08:57)
[2018-01-10] MEDS: BENZTROPINE MESYLATE 1 MG TABLET PO SCH ×2 (08:57→16:34)
[2018-01-10] MEDS: CARBIDOPA/LEVODOPA 25-100 MG TABLET PO SCH ×3 (08:57→16:34)
[2018-01-10] MEDS: DIVALPROEX SODIUM 250 MG DR TABLET PO SCH ×2 (12:21→20:29)
[2018-01-10 16:09] VITALS: BP 104/72
[2018-01-10] MEDS: OLANZapine 10 MG TABLET PO SCH (20:29)
[2018-01-11 01:12] VITALS: BP 120/81
[2018-01-11] MEDS: ZOLPIDEM TARTRATE 10 MG TABLET PO PRN ×2 (01:13→23:03)
[2018-01-11 08:10] VITALS: BP 108/71
[2018-01-11] MEDS: BENZTROPINE MESYLATE 1 MG TABLET PO SCH ×2 (08:51→16:09)
[2018-01-11] MEDS: CARBIDOPA/LEVODOPA 25-100 MG TABLET PO SCH ×3 (08:51→16:08)
[2018-01-11] MEDS: OMEGA-3/DHA/EPA/FISH OIL 1,000 MG CAPSULE PO SCH (08:51)
[2018-01-11] MEDS: DIVALPROEX SODIUM 250 MG DR TABLET PO SCH ×2 (12:31→20:38)
[2018-01-11 16:01] VITALS: BP 113/66
[2018-01-11] MEDS: LORazepam 2 MG TABLET PO PRN (20:38)
[2018-01-11] MEDS: OLANZapine 10 MG TABLET PO SCH (20:40)
[2018-01-12 05:08] VITALS: BP 110/70
[2018-01-12] MEDS: CARBIDOPA/LEVODOPA 25-100 MG TABLET PO SCH ×3 (08:18→16:32)
[2018-01-12] MEDS: OMEGA-3/DHA/EPA/FISH OIL 1,000 MG CAPSULE PO SCH (08:18)
[2018-01-12] MEDS: BENZTROPINE MESYLATE 1 MG TABLET PO SCH ×2 (08:18→16:31)
[2018-01-12 08:24] VITALS: BP 112/74
[2018-01-12] MEDS: DIVALPROEX SODIUM 250 MG DR TABLET PO SCH ×2 (12:06→20:58)
[2018-01-12 16:57] VITALS: BP 106/67
[2018-01-12] MEDS: OLANZapine 10 MG TABLET PO SCH (20:58)
[2018-01-12] MEDS: ZOLPIDEM TARTRATE 10 MG TABLET PO PRN (22:41)
[2018-01-13 04:14] VITALS: BP 115/80
[2018-01-13] MEDS: LORazepam 2 MG TABLET PO PRN (04:15)
[2018-01-13] MEDS: CARBIDOPA/LEVODOPA 25-100 MG TABLET PO SCH ×3 (09:09→16:31)
[2018-01-13] MEDS: OMEGA-3/DHA/EPA/FISH OIL 1,000 MG CAPSULE PO SCH (09:09)
[2018-01-13] MEDS: BENZTROPINE MESYLATE 1 MG TABLET PO SCH ×2 (09:09→16:31)
[2018-01-13 09:55] VITALS: BP 117/71
[2018-01-13] MEDS: DIVALPROEX SODIUM 250 MG DR TABLET PO SCH ×2 (12:40→20:32)
[2018-01-13 16:15] VITALS: BP 115/72
[2018-01-13] MEDS: OLANZapine 10 MG TABLET PO SCH (20:33)
[2018-01-13] MEDS: ZOLPIDEM TARTRATE 10 MG TABLET PO PRN (22:05)
[2018-01-14 06:03] VITALS: BP 121/75
[2018-01-14] MEDS: CARBIDOPA/LEVODOPA 25-100 MG TABLET PO SCH ×3 (08:15→16:33)
[2018-01-14] MEDS: OMEGA-3/DHA/EPA/FISH OIL 1,000 MG CAPSULE PO SCH (08:15)
[2018-01-14] MEDS: BENZTROPINE MESYLATE 1 MG TABLET PO SCH ×2 (08:15→16:33)
[2018-01-14 08:20] VITALS: BP 117/96
[2018-01-14] MEDS: DIVALPROEX SODIUM 250 MG DR TABLET PO SCH ×2 (12:38→20:12)
[2018-01-14 16:14] VITALS: BP 117/61
[2018-01-14] MEDS: OLANZapine 10 MG TABLET PO SCH (20:12)
[2018-01-14] MEDS: ZOLPIDEM TARTRATE 10 MG TABLET PO PRN (21:25)
[2018-01-15] VITALS: BP 110/68
[2018-01-15] MEDS: LORazepam 2 MG TABLET PO PRN ×2 (00:14→23:56)
[2018-01-15] MEDS: IBUPROFEN 600 MG TABLET PO PRN (00:15)
[2018-01-15] MEDS: OMEGA-3/DHA/EPA/FISH OIL 1,000 MG CAPSULE PO SCH (08:29)
[2018-01-15] MEDS: CARBIDOPA/LEVODOPA 25-100 MG TABLET PO SCH ×3 (08:29→16:30)
[2018-01-15] MEDS: BENZTROPINE MESYLATE 1 MG TABLET PO SCH ×2 (08:29→16:30)
[2018-01-15 10:14] VITALS: BP 108/75
[2018-01-15] MEDS: DIVALPROEX SODIUM 250 MG DR TABLET PO SCH ×2 (12:27→20:13)
[2018-01-15 16:13] VITALS: BP 107/65
[2018-01-15] MEDS: OLANZapine 10 MG TABLET PO SCH (20:13)
[2018-01-15] MEDS: ZOLPIDEM TARTRATE 10 MG TABLET PO PRN (21:51)
[2018-01-16 00:04] VITALS: BP 110/68
[2018-01-16 00:25] VITALS: BP 117/66
[2018-01-16] MEDS: IBUPROFEN 600 MG TABLET PO PRN (00:27)
[2018-01-16 08:35] VITALS: BP 115/76
[2018-01-16] MEDS: BENZTROPINE MESYLATE 1 MG TABLET PO SCH ×2 (08:43→16:33)
[2018-01-16] MEDS: CARBIDOPA/LEVODOPA 25-100 MG TABLET PO SCH ×3 (08:43→16:33)
[2018-01-16] MEDS: OMEGA-3/DHA/EPA/FISH OIL 1,000 MG CAPSULE PO SCH (08:43)
[2018-01-16] MEDS: DIVALPROEX SODIUM 250 MG DR TABLET PO SCH ×2 (12:06→21:04)
[2018-01-16 16:24] VITALS: BP 118/68
[2018-01-16] MEDS: OLANZapine 10 MG TABLET PO SCH (21:05)
[2018-01-16] MEDS: ZOLPIDEM TARTRATE 10 MG TABLET PO PRN (21:57)
[2018-01-17 00:16] VITALS: BP 118/74
[2018-01-17] MEDS: LORazepam 2 MG TABLET PO PRN (00:16)
[2018-01-17 01:28] VITALS: BP 122/76
[2018-01-17] MEDS: IBUPROFEN 600 MG TABLET PO PRN (01:29)
[2018-01-17] MEDS: OMEGA-3/DHA/EPA/FISH OIL 1,000 MG CAPSULE PO SCH (08:13)
[2018-01-17] MEDS: BENZTROPINE MESYLATE 1 MG TABLET PO SCH ×2 (08:13→16:34)
[2018-01-17] MEDS: CARBIDOPA/LEVODOPA 25-100 MG TABLET PO SCH ×3 (08:13→16:35)
[2018-01-17 08:27] VITALS: BP 111/80
[2018-01-17] MEDS: DIVALPROEX SODIUM 250 MG DR TABLET PO SCH ×2 (12:31→21:33)
[2018-01-17 16:15] VITALS: BP 119/68
[2018-01-17] MEDS: OLANZapine 10 MG TABLET PO SCH (21:33)
[2018-01-17] MEDS: ZOLPIDEM TARTRATE 10 MG TABLET PO PRN (22:31)
[2018-01-18] VITALS: BP 110/74
[2018-01-18] MEDS: IBUPROFEN 600 MG TABLET PO PRN ×2 (01:04→22:38)
[2018-01-18 08:40] VITALS: BP 142/89
[2018-01-18] MEDS: BENZTROPINE MESYLATE 1 MG TABLET PO SCH ×2 (09:03→16:41)
[2018-01-18] MEDS: CARBIDOPA/LEVODOPA 25-100 MG TABLET PO SCH ×3 (09:03→16:41)
[2018-01-18] MEDS: OMEGA-3/DHA/EPA/FISH OIL 1,000 MG CAPSULE PO SCH (09:03)
[2018-01-18] MEDS: DIVALPROEX SODIUM 250 MG DR TABLET PO SCH ×2 (12:15→22:00)
[2018-01-18 16:32] VITALS: BP 114/76
[2018-01-18] MEDS: OLANZapine 10 MG TABLET PO SCH (22:01)
[2018-01-18] MEDS: LORazepam 2 MG TABLET PO PRN ×2 (22:21)
[2018-01-18 22:33] VITALS: BP 120/79
[2018-01-19] MEDS: ZOLPIDEM TARTRATE 10 MG TABLET PO PRN (00:34)
[2018-01-19 06:27] VITALS: BP 101/76
[2018-01-19] MEDS: OMEGA-3/DHA/EPA/FISH OIL 1,000 MG CAPSULE PO SCH (08:20)
[2018-01-19] MEDS: BENZTROPINE MESYLATE 1 MG TABLET PO SCH (08:20)
[2018-01-19] MEDS: CARBIDOPA/LEVODOPA 25-100 MG TABLET PO SCH ×2 (08:20→12:06)
[2018-01-19 08:42] VITALS: BP 114/74
[2018-01-19] MEDS: DIVALPROEX SODIUM 250 MG DR TABLET PO SCH (12:06)
[2018-01-19] MEDS ORDERED: DIVA-76 PO ×2 (13:50)
== END 2018-01-19 15:02 | disposition home or self-care (01) | DRG 885 ==
LOC: EMS 20:52 → UNDOADMIN 23:30 → B2X 23:30
PROVIDERS: ADMIT Psychiatry & Neurology Psychiatry; ATTEND Psychiatry & Neurology Psychiatry
DX: F25.0 Schizoaffective disorder, bipolar type (principal); G20 Parkinson's disease; I10 Essential (primary) hypertension; J44.9 Chronic obstructive pulmonary disease, unspecified; K21.9 Gastro-esophageal reflux disease without esophagitis; F17.200 Nicotine dependence, unspecified, uncomplicated; R26.9 Unspecified abnormalities of gait and mobility; F12.10 Cannabis abuse, uncomplicated; K59.00 Constipation, unspecified; Z91.81 History of falling; Z99.3 Dependence on wheelchair; Z28.21 Immunization not carried out because of patient refusal; Z79.899 Other long term (current) drug therapy; Z56.0 Unemployment, unspecified; Z71.6 Tobacco abuse counseling
CPT/HCPCS: 87081; G0480

== ENCOUNTER 2018-01-25 15:33 | Inpatient (IN) | payer OTHER, MEDICAID ==
[~2018-01-25] VITALS: Ht 175.3 cm; Wt 68.9 kg
[~2018-01-25 15:33] MED LIST changes: -AMAN100C12 PO; -CALC560C TP; +DIVA-76 PO; -DSS100 PO; -OMEP20 PO
[2018-01-25 15:41] VITALS: BP 124/77
[2018-01-25] MEDS ORDERED: HALOPERIDOL 5 MG TABLET PO PRN (16:00)
[2018-01-25 16:36] VITALS: BP 120/75
[2018-01-25] MEDS: BENZTROPINE MESYLATE 1 MG TABLET PO SCH (16:57)
[2018-01-25] MEDS: OLANZapine 10 MG TABLET PO SCH (20:31)
[2018-01-25] MEDS: LORazepam 2 MG TABLET PO PRN (21:20)
[2018-01-26 00:07] VITALS: BP 126/78
[2018-01-26] MEDS: ZOLPIDEM TARTRATE 10 MG TABLET PO PRN ×2 (00:07→23:37)
[2018-01-26] MEDS: LORazepam 2 MG TABLET PO PRN ×2 (04:17→21:38)
[2018-01-26 04:43] VITALS: BP 115/75
[2018-01-26 05:30] VITALS: BP 116/75
[2018-01-26] MEDS ORDERED: PNEUMOCOCCAL VACCINE POLYVALENT 0.5 ML VIAL [PPSV23] IM ONE (05:30)
[2018-01-26 08:20] LABS: BASOPHILS % (AUTO) 0.6 % (0.0-2.0); EOSINOPHILS % (AUTO) 7.2 % (1.0-6.0); HEMATOCRIT 43.4 % (41-53); HEMOGLOBIN 14.8 g/dL (13.5-17.5); LYMPHOCYTES # (AUTO) 1.6 K/uL (1.0-4.8); LYMPHOCYTES % (AUTO) 22.2 % (22.0-44.0); MEAN CORPUSCULAR HEMOGLOBIN 30.6 pg (26.0-34.0); MEAN CORPUSCULAR HGB CONC 34.2 G/dL (31.0-37.0); MEAN CORPUSCULAR VOLUME 89 fL (80-100); MONOCYTES # (AUTO) 0.8 K/uL (0.1-1.0); MONOCYTES % (AUTO) 11.4 % (2.0-9.0); NEUTROPHILS # (AUTO) 4.2 K/uL (1.8-7.7); NEUTROPHILS % (AUTO) 58.6 % (40.0-70.0); PLATELET COUNT (AUTO) 262 K/uL (150-450); RED BLOOD CELL COUNT(AUTO) 4.85 MIL/uL (4.50-5.90)
[2018-01-26] MEDS: OMEGA-3/DHA/EPA/FISH OIL 1,000 MG CAPSULE PO SCH (08:27)
[2018-01-26] MEDS: DIVALPROEX SODIUM 250 MG DR TABLET PO SCH (08:27)
[2018-01-26] MEDS: BENZTROPINE MESYLATE 1 MG TABLET PO SCH ×2 (08:27→16:32)
[2018-01-26] MEDS: CARBIDOPA/LEVODOPA 25-100 MG TABLET PO SCH ×3 (08:27→16:31)
[2018-01-26 08:29] LABS: HEMOGLOBIN A1C 5.7 % (4.5-6.2)
[2018-01-26 08:37] VITALS: BP 112/74
[2018-01-26 08:45] LABS: ALANINE AMINOTRANSFERASE 16 U/L (12-78); ALBUMIN 3.3 g/dL (3.4-5.0); ALKALINE PHOSPHATASE 83 U/L (46-116); ANION GAP 3 mmol/L (8-16); ASPARTATE AMINOTRANSFERASE 8 U/L (15-37); BILIRUBIN,TOTAL 0.3 mg/dL (0.1-1.0); CALCIUM, TOTAL 8.7 mg/dL (8.8-10.5); CARBON DIOXIDE 35 mmol/L (22-29); CHLORIDE 104 mmol/L (98-107); CHOLESTEROL 159 mg/dL (131-200); CREATININE 0.98 mg/dL (0.60-1.30); GLOMERULAR FILTR. RATE CALC > 60 mL/min (>60); GLUCOSE,RANDOM 96 mg/dL (70-110); HDL CHOLESTEROL 53 mg/dL (40-60); LDL CHOL (CALC.) 78 mg/dL (0-130); POTASSIUM 4.1 mmol/L (3.5-5.1); SODIUM SERUM 142 mmol/L (136-145); TOTAL PROTEIN, SERUM 7.1 g/dL (6.4-8.2); TRIGLYCERIDES 140 mg/dL (15-150); UREA NITROGEN, BLOOD 13 mg/dL (7-18)
[2018-01-26 16:06] VITALS: BP 117/78
[2018-01-26] MEDS ORDERED: ACETAMINOPHEN 325 MG TABLET PO PRN (19:15)
[2018-01-26] MEDS ORDERED: BACITRACIN 28.4 GM OINTMENT TP PRN (19:15)
[2018-01-26] MEDS ORDERED: CloNIDine HCL 0.1 MG TABLET PO PRN (19:15)
[2018-01-26] MEDS ORDERED: BENZOCAINE/MENTHOL LOZENGE MM PRN (19:15)
[2018-01-26] MEDS ORDERED: ALBUTEROL SULFATE HFA 90 MCG/PUFF 8 GM INHALER IH PRN (19:15)
[2018-01-26] MEDS ORDERED: MAG HYDROX/AL HYDROX/SIMETH ES 30 ML SUSPENSION UDCUP PO PRN (19:15)
[2018-01-26] MEDS ORDERED: PETROLATUM,WHITE 71 GM JELLY TP PRN (19:15)
[2018-01-26] MEDS ORDERED: ONDANSETRON HCL 4 MG TABLET PO PRN (19:15)
[2018-01-26] MEDS ORDERED: LOPERAMIDE HCL 2 MG CAPSULE PO PRN (19:15)
[2018-01-26] MEDS ORDERED: MAGNESIUM HYDROXIDE SUSPENSION 30 ML UDCUP PO PRN (19:15)
[2018-01-26] MEDS: OLANZapine 10 MG TABLET PO SCH (21:34)
[2018-01-26] MEDS: IBUPROFEN 600 MG TABLET PO PRN (23:37)
[2018-01-27 00:03] VITALS: BP 129/97
[2018-01-27] MEDS: LORazepam 2 MG TABLET PO PRN (01:33)
[2018-01-27 08:00] VITALS: BP 110/75
[2018-01-27] MEDS: BENZTROPINE MESYLATE 1 MG TABLET PO SCH ×2 (08:25→16:33)
[2018-01-27] MEDS: OMEGA-3/DHA/EPA/FISH OIL 1,000 MG CAPSULE PO SCH (08:26)
[2018-01-27] MEDS: DIVALPROEX SODIUM 250 MG DR TABLET PO SCH (08:26)
[2018-01-27] MEDS: CARBIDOPA/LEVODOPA 25-100 MG TABLET PO SCH ×3 (08:26→16:33)
[2018-01-27] MEDS: DOCUSATE SODIUM 100 MG CAPSULE PO SCH (08:26)
[2018-01-27] MEDS: OMEPRAZOLE 20 MG CAPSULE PO SCH (08:26)
[2018-01-27] MEDS ORDERED: OLAN10TA3 PO (13:22)
[2018-01-27 16:04] VITALS: BP 108/72
[2018-01-27] MEDS: CLINDAMYCIN HCL 150 MG CAPSULE PO SCH (21:00)
[2018-01-27] MEDS: OLANZapine 10 MG TABLET PO SCH (21:01)
[2018-01-28] VITALS: BP 121/66
[2018-01-28] MEDS: LORazepam 2 MG TABLET PO PRN ×2 (00:03→21:59)
[2018-01-28] MEDS: ZOLPIDEM TARTRATE 10 MG TABLET PO PRN (00:03)
[2018-01-28 08:15] LABS: AMPHET/METH SCREEN,URINE NEGATIVE (NEGATIVE); BARBITURATE SCREEN, URINE NEGATIVE (NEGATIVE); BENZODIAZEPINES SCREEN,URINE NEGATIVE (NEGATIVE); CANNABINOID SCREEN,URINE NEGATIVE (NEGATIVE); COCAINE SCREEN,URINE NEGATIVE (NEGATIVE); METHADONE SCREEN, URINE NEGATIVE (NEGATIVE); OPIATE SCREEN,URINE NEGATIVE (NEGATIVE)
[2018-01-28] MEDS: DOCUSATE SODIUM 100 MG CAPSULE PO SCH (08:15)
[2018-01-28] MEDS: DIVALPROEX SODIUM 250 MG DR TABLET PO SCH (08:15)
[2018-01-28] MEDS: CLINDAMYCIN HCL 150 MG CAPSULE PO SCH ×2 (08:15→20:32)
[2018-01-28] MEDS: OMEGA-3/DHA/EPA/FISH OIL 1,000 MG CAPSULE PO SCH (08:15)
[2018-01-28] MEDS: CARBIDOPA/LEVODOPA 25-100 MG TABLET PO SCH ×3 (08:15→16:31)
[2018-01-28] MEDS: BENZTROPINE MESYLATE 1 MG TABLET PO SCH ×2 (08:15→16:32)
[2018-01-28] MEDS: OMEPRAZOLE 20 MG CAPSULE PO SCH (08:15)
[2018-01-28 08:17] LABS: PHENCYCLIDINE SCREEN,URINE NEGATIVE (NEGATIVE)
[2018-01-28 08:18] VITALS: BP 123/74
[2018-01-28 08:39] LABS: APPEARANCE,URINE CLEAR (CLEAR); BILIRUBIN,URINE NEGATIVE (NEGATIVE); GLUCOSE, URINE (UA) NEGATIVE (NEGATIVE); KETONES,URINE NEGATIVE (NEGATIVE); LEUKOCYTE ESTERASE ,URINE NEGATIVE (NEGATIVE); NITRATE,URINE NEGATIVE (NEGATIVE); OCCULT BLOOD,URINE NEGATIVE (NEGATIVE); PROTEIN,URINE NEGATIVE (NEGATIVE); UROBILINOGEN,URINE 0.2 mg/dL (<=1.0)
[2018-01-28 16:10] VITALS: BP 113/67
[2018-01-28] MEDS: OLANZapine 10 MG TABLET PO SCH (20:32)
[2018-01-29] MEDS: ZOLPIDEM TARTRATE 10 MG TABLET PO PRN (00:03)
[2018-01-29 05:36] VITALS: BP 114/71
[2018-01-29 08:13] VITALS: BP 119/83
[2018-01-29] MEDS: BENZTROPINE MESYLATE 1 MG TABLET PO SCH ×2 (08:20→16:29)
[2018-01-29] MEDS: DIVALPROEX SODIUM 250 MG DR TABLET PO SCH (08:20)
[2018-01-29] MEDS: OMEPRAZOLE 20 MG CAPSULE PO SCH (08:20)
[2018-01-29] MEDS: DOCUSATE SODIUM 100 MG CAPSULE PO SCH (08:20)
[2018-01-29] MEDS: CARBIDOPA/LEVODOPA 25-100 MG TABLET PO SCH ×3 (08:20→16:29)
[2018-01-29] MEDS: CLINDAMYCIN HCL 150 MG CAPSULE PO SCH ×2 (08:20→20:32)
[2018-01-29] MEDS: OMEGA-3/DHA/EPA/FISH OIL 1,000 MG CAPSULE PO SCH (08:20)
[2018-01-29 16:04] VITALS: BP 118/77
[2018-01-29] MEDS: IBUPROFEN 600 MG TABLET PO PRN (16:05)
[2018-01-29] MEDS: OLANZapine 10 MG TABLET PO SCH (20:32)
[2018-01-29] MEDS: LORazepam 2 MG TABLET PO PRN (20:50)
[2018-01-30] MEDS: ZOLPIDEM TARTRATE 10 MG TABLET PO PRN (00:01)
[2018-01-30 05:36] VITALS: BP 120/81
[2018-01-30 08:04] VITALS: BP 108/69
[2018-01-30] MEDS: OMEPRAZOLE 20 MG CAPSULE PO SCH (08:34)
[2018-01-30] MEDS: CARBIDOPA/LEVODOPA 25-100 MG TABLET PO SCH ×3 (08:34→18:00)
[2018-01-30] MEDS: CLINDAMYCIN HCL 150 MG CAPSULE PO SCH ×2 (08:34→20:08)
[2018-01-30] MEDS: OMEGA-3/DHA/EPA/FISH OIL 1,000 MG CAPSULE PO SCH (08:34)
[2018-01-30] MEDS: DOCUSATE SODIUM 100 MG CAPSULE PO SCH (08:34)
[2018-01-30] MEDS: DIVALPROEX SODIUM 250 MG DR TABLET PO SCH (08:34)
[2018-01-30] MEDS: BENZTROPINE MESYLATE 1 MG TABLET PO SCH ×2 (08:34→16:38)
[2018-01-30 16:26] VITALS: BP 119/76
[2018-01-30] MEDS: IBUPROFEN 600 MG TABLET PO PRN (18:55)
[2018-01-30] MEDS: OLANZapine 10 MG TABLET PO SCH (20:09)
[2018-01-31 02:04] VITALS: BP 115/76
[2018-01-31] MEDS: LORazepam 2 MG TABLET PO PRN (02:04)
[2018-01-31] MEDS: ZOLPIDEM TARTRATE 10 MG TABLET PO PRN (02:04)
[2018-01-31 08:01] VITALS: BP 105/64
[2018-01-31] MEDS: CARBIDOPA/LEVODOPA 25-100 MG TABLET PO SCH ×2 (08:18→12:50)
[2018-01-31] MEDS: DIVALPROEX SODIUM 250 MG DR TABLET PO SCH (08:18)
[2018-01-31] MEDS: OMEGA-3/DHA/EPA/FISH OIL 1,000 MG CAPSULE PO SCH (08:18)
[2018-01-31] MEDS: OMEPRAZOLE 20 MG CAPSULE PO SCH (08:18)
[2018-01-31] MEDS: DOCUSATE SODIUM 100 MG CAPSULE PO SCH (08:18)
[2018-01-31] MEDS: BENZTROPINE MESYLATE 1 MG TABLET PO SCH (08:18)
[2018-01-31] MEDS: CLINDAMYCIN HCL 150 MG CAPSULE PO SCH (08:18)
[2018-01-31] MEDS ORDERED: CLIN150C9 PO (08:56)
== END 2018-01-31 13:55 | disposition home or self-care (01) | DRG 885 ==
LOC: B2X 15:54
PROVIDERS: ADMIT Psychiatry & Neurology Psychiatry; ATTEND Psychiatry & Neurology Psychiatry
DX: F25.9 Schizoaffective disorder, unspecified (principal); F41.9 Anxiety disorder, unspecified; I10 Essential (primary) hypertension; K59.00 Constipation, unspecified; G20 Parkinson's disease; R26.9 Unspecified abnormalities of gait and mobility; G47.00 Insomnia, unspecified; F17.200 Nicotine dependence, unspecified, uncomplicated; K21.9 Gastro-esophageal reflux disease without esophagitis; J44.9 Chronic obstructive pulmonary disease, unspecified; Z56.0 Unemployment, unspecified; Z71.6 Tobacco abuse counseling
CPT/HCPCS: 80307; 83036; 84439; 84443; 87081; 90686

== ENCOUNTER 2018-02-01 20:46 | Emergency (ER) | payer MEDICAID, OTHER ==
[~2018-02-01] VITALS: Ht 170.2 cm; Wt 68.2 kg
[~2018-02-01 20:46] MED LIST changes: +CLIN150C9 PO; +OLAN10TA3 PO; -OLAN7.5T2 PO; -OMEG100033 PO
[2018-02-01 20:53] VITALS: BP 125/86
[2018-02-01 21:03] LABS: GLUCOSE,POINT OF CARE 86 MG/DL (70-110)
[2018-02-01 21:35] LABS: BASOPHILS % (AUTO) 0.4 % (0.0-2.0); EOSINOPHILS % (AUTO) 0.6 % (1.0-6.0); HEMATOCRIT 44.4 % (41-53); HEMOGLOBIN 15.4 g/dL (13.5-17.5); LYMPHOCYTES # (AUTO) 2.5 K/uL (1.0-4.8); LYMPHOCYTES % (AUTO) 22.9 % (22.0-44.0); MEAN CORPUSCULAR HEMOGLOBIN 30.5 pg (26.0-34.0); MEAN CORPUSCULAR HGB CONC 34.7 G/dL (31.0-37.0); MEAN CORPUSCULAR VOLUME 88 fL (80-100); MONOCYTES # (AUTO) 1.3 K/uL (0.1-1.0); MONOCYTES % (AUTO) 12.4 % (2.0-9.0); NEUTROPHILS # (AUTO) 6.8 K/uL (1.8-7.7); NEUTROPHILS % (AUTO) 63.7 % (40.0-70.0); PLATELET COUNT (AUTO) 288 K/uL (150-450); RED BLOOD CELL COUNT(AUTO) 5.06 MIL/uL (4.50-5.90); RED CELL DISTRIBUTION WIDTH 13.7 % (11.5-14.5)
[2018-02-01 21:44] LABS: ANION GAP 4 mmol/L (8-16); CALCIUM, TOTAL 9.2 mg/dL (8.8-10.5); CARBON DIOXIDE 33 mmol/L (22-29); CHLORIDE 100 mmol/L (98-107); CREATININE 0.96 mg/dL (0.60-1.30); GLOMERULAR FILTR. RATE CALC > 60 mL/min (>60); GLUCOSE,RANDOM 86 mg/dL (70-110); POTASSIUM 4.4 mmol/L (3.5-5.1); SODIUM SERUM 137 mmol/L (136-145); UREA NITROGEN, BLOOD 17 mg/dL (7-18)
[2018-02-01 21:51] LABS: ALANINE AMINOTRANSFERASE 35 U/L (12-78); ALKALINE PHOSPHATASE 85 U/L (46-116); ASPARTATE AMINOTRANSFERASE 37 U/L (15-37); BILIRUBIN,TOTAL 0.5 mg/dL (0.1-1.0); VALPROIC ACID 6 mcg/mL (50-100)
== END 2018-02-01 23:20 | disposition left against medical advice (07) ==
LOC: EMS 20:47
DX: R45.851 Suicidal ideations (principal); Z53.21 Procedure and treatment not carried out due to patient leaving prior to being seen by health care provider
CPT/HCPCS: 36415; 80053; 80164; 82962; 85025; G0480

== ENCOUNTER 2018-02-14 19:40 | Inpatient (IN) | payer OTHER, MEDICAID ==
[~2018-02-14] VITALS: Ht 175.3 cm; Wt 70.2 kg
[~2018-02-14 19:40] MED LIST changes: -CLIN150C9 PO
[2018-02-14] MEDS ORDERED: PNEUMOCOCCAL VACCINE POLYVALENT 0.5 ML VIAL [PPSV23] IM ONE (20:15)
[2018-02-14 20:44] VITALS: BP 145/86
[2018-02-15 00:10] VITALS: BP 128/88
[2018-02-15] MEDS: LORazepam 2 MG TABLET PO PRN ×2 (00:13→16:25)
[2018-02-15] MEDS: ZOLPIDEM TARTRATE 10 MG TABLET PO PRN (00:14)
[2018-02-15] MEDS ORDERED: LOPERAMIDE HCL 2 MG CAPSULE PO PRN (07:30)
[2018-02-15] MEDS ORDERED: BENZOCAINE/MENTHOL LOZENGE MM PRN (07:30)
[2018-02-15] MEDS ORDERED: CloNIDine HCL 0.1 MG TABLET PO PRN (07:30)
[2018-02-15] MEDS ORDERED: ONDANSETRON HCL 4 MG TABLET PO PRN (07:30)
[2018-02-15] MEDS ORDERED: MAGNESIUM HYDROXIDE SUSPENSION 30 ML UDCUP PO PRN (07:30)
[2018-02-15] MEDS ORDERED: ALBUTEROL SULFATE HFA 90 MCG/PUFF 8 GM INHALER IH PRN (07:30)
[2018-02-15] MEDS ORDERED: BACITRACIN 28.4 GM OINTMENT TP PRN (07:30)
[2018-02-15] MEDS ORDERED: PETROLATUM,WHITE 71 GM JELLY TP PRN (07:30)
[2018-02-15 08:49] VITALS: BP 108/56
[2018-02-15] MEDS: CARBIDOPA/LEVODOPA 25-100 MG TABLET PO SCH ×3 (09:00→16:24)
[2018-02-15] MEDS: OMEPRAZOLE 20 MG CAPSULE PO SCH (09:09)
[2018-02-15] MEDS: DOCUSATE SODIUM 100 MG CAPSULE PO SCH (09:09)
[2018-02-15] MEDS: DIVALPROEX SODIUM 250 MG DR TABLET PO SCH (10:24)
[2018-02-15] MEDS ORDERED: CARBIDOPA/LEVODOPA 25-100 MG TABLET PO SCH (13:00)
[2018-02-15 16:10] VITALS: BP 118/78
[2018-02-15] MEDS: BENZTROPINE MESYLATE 1 MG TABLET PO SCH (16:24)
[2018-02-15] MEDS: OLANZapine 10 MG TABLET PO SCH (20:10)
[2018-02-16 05:15] VITALS: BP 120/86
[2018-02-16] MEDS: DIVALPROEX SODIUM 250 MG DR TABLET PO SCH (08:21)
[2018-02-16] MEDS: DOCUSATE SODIUM 100 MG CAPSULE PO SCH (08:21)
[2018-02-16] MEDS: BENZTROPINE MESYLATE 1 MG TABLET PO SCH ×2 (08:21→16:28)
[2018-02-16] MEDS: OMEPRAZOLE 20 MG CAPSULE PO SCH (08:21)
[2018-02-16] MEDS: CARBIDOPA/LEVODOPA 25-100 MG TABLET PO SCH ×3 (08:21→16:28)
[2018-02-16 08:29] VITALS: BP 139/75
[2018-02-16 16:11] VITALS: BP 112/66
[2018-02-16] MEDS: LORazepam 2 MG TABLET PO PRN (20:54)
[2018-02-16] MEDS: OLANZapine 10 MG TABLET PO SCH (20:54)
[2018-02-16] MEDS: ZOLPIDEM TARTRATE 10 MG TABLET PO PRN (20:54)
[2018-02-17 06:15] VITALS: BP 126/67
[2018-02-17 08:39] VITALS: BP 109/78
[2018-02-17] MEDS: DIVALPROEX SODIUM 250 MG DR TABLET PO SCH (08:45)
[2018-02-17] MEDS: OMEPRAZOLE 20 MG CAPSULE PO SCH (08:45)
[2018-02-17] MEDS: DOCUSATE SODIUM 100 MG CAPSULE PO SCH (08:45)
[2018-02-17] MEDS: CARBIDOPA/LEVODOPA 25-100 MG TABLET PO SCH ×3 (08:45→16:33)
[2018-02-17] MEDS: BENZTROPINE MESYLATE 1 MG TABLET PO SCH ×2 (08:45→16:33)
[2018-02-17 16:00] VITALS: BP 106/70
[2018-02-17] MEDS: OLANZapine 10 MG TABLET PO SCH (20:08)
[2018-02-17] MEDS: ZOLPIDEM TARTRATE 10 MG TABLET PO PRN (21:42)
[2018-02-18 03:34] VITALS: BP 111/67
[2018-02-18] MEDS: LORazepam 2 MG TABLET PO PRN (03:35)
[2018-02-18 08:18] VITALS: BP 113/63
[2018-02-18] MEDS: DIVALPROEX SODIUM 250 MG DR TABLET PO SCH (08:23)
[2018-02-18] MEDS: BENZTROPINE MESYLATE 1 MG TABLET PO SCH ×2 (08:23→16:42)
[2018-02-18] MEDS: DOCUSATE SODIUM 100 MG CAPSULE PO SCH (08:23)
[2018-02-18] MEDS: OMEPRAZOLE 20 MG CAPSULE PO SCH (08:23)
[2018-02-18] MEDS: CARBIDOPA/LEVODOPA 25-100 MG TABLET PO SCH ×3 (08:23→16:42)
[2018-02-18 16:15] VITALS: BP 111/76
[2018-02-18] MEDS: OLANZapine 10 MG TABLET PO SCH (20:05)
[2018-02-18] MEDS: ZOLPIDEM TARTRATE 10 MG TABLET PO PRN (21:24)
[2018-02-19 03:34] VITALS: BP 120/81
[2018-02-19] MEDS: LORazepam 2 MG TABLET PO PRN ×2 (03:45→17:01)
[2018-02-19 08:26] VITALS: BP 127/78
[2018-02-19] MEDS: CARBIDOPA/LEVODOPA 25-100 MG TABLET PO SCH ×3 (08:27→17:00)
[2018-02-19] MEDS: OMEPRAZOLE 20 MG CAPSULE PO SCH (08:27)
[2018-02-19] MEDS: DOCUSATE SODIUM 100 MG CAPSULE PO SCH (08:27)
[2018-02-19] MEDS: BENZTROPINE MESYLATE 1 MG TABLET PO SCH ×2 (08:27→17:01)
[2018-02-19] MEDS: DIVALPROEX SODIUM 250 MG DR TABLET PO SCH (08:27)
[2018-02-19 16:14] VITALS: BP 120/75
[2018-02-19] MEDS: OLANZapine 10 MG TABLET PO SCH (20:14)
[2018-02-19] MEDS: ZOLPIDEM TARTRATE 10 MG TABLET PO PRN (21:37)
[2018-02-20] VITALS: BP 100/61
[2018-02-20 08:10] VITALS: BP 119/62
[2018-02-20] MEDS: BENZTROPINE MESYLATE 1 MG TABLET PO SCH ×2 (08:33→16:36)
[2018-02-20] MEDS: OMEPRAZOLE 20 MG CAPSULE PO SCH (08:33)
[2018-02-20] MEDS: DIVALPROEX SODIUM 250 MG DR TABLET PO SCH (08:33)
[2018-02-20] MEDS: CARBIDOPA/LEVODOPA 25-100 MG TABLET PO SCH ×3 (08:33→16:36)
[2018-02-20] MEDS: DOCUSATE SODIUM 100 MG CAPSULE PO SCH (08:33)
[2018-02-20 16:00] VITALS: BP 123/89
[2018-02-20] MEDS: OLANZapine 10 MG TABLET PO SCH (20:36)
[2018-02-20] MEDS: ZOLPIDEM TARTRATE 10 MG TABLET PO PRN (21:00)
[2018-02-21 05:16] VITALS: BP 120/81
[2018-02-21 08:28] VITALS: BP 126/84
[2018-02-21 08:33] LABS: BASOPHILS % (AUTO) 0.5 % (0.0-2.0); EOSINOPHILS % (AUTO) 3.4 % (1.0-6.0); HEMOGLOBIN 15.5 g/dL (13.5-17.5); LYMPHOCYTES # (AUTO) 2.1 K/uL (1.0-4.8); LYMPHOCYTES % (AUTO) 30.4 % (22.0-44.0); MEAN CORPUSCULAR HEMOGLOBIN 30.2 pg (26.0-34.0); MEAN CORPUSCULAR HGB CONC 34.4 G/dL (31.0-37.0); MEAN CORPUSCULAR VOLUME 88 fL (80-100); MONOCYTES # (AUTO) 0.7 K/uL (0.1-1.0); MONOCYTES % (AUTO) 10.2 % (2.0-9.0); NEUTROPHILS # (AUTO) 3.8 K/uL (1.8-7.7); NEUTROPHILS % (AUTO) 55.5 % (40.0-70.0); PLATELET COUNT (AUTO) 269 K/uL (150-450); RED BLOOD CELL COUNT(AUTO) 5.14 MIL/uL (4.50-5.90); RED CELL DISTRIBUTION WIDTH 13.8 % (11.5-14.5)
[2018-02-21] MEDS: CARBIDOPA/LEVODOPA 25-100 MG TABLET PO SCH ×3 (08:46→16:35)
[2018-02-21] MEDS: BENZTROPINE MESYLATE 1 MG TABLET PO SCH ×2 (08:46→16:35)
[2018-02-21] MEDS: DIVALPROEX SODIUM 250 MG DR TABLET PO SCH (08:46)
[2018-02-21] MEDS: DOCUSATE SODIUM 100 MG CAPSULE PO SCH (08:46)
[2018-02-21] MEDS: OMEPRAZOLE 20 MG CAPSULE PO SCH (08:46)
[2018-02-21 08:56] LABS: HEMOGLOBIN A1C 5.6 % (4.5-6.2)
[2018-02-21 09:20] LABS: ALANINE AMINOTRANSFERASE 29 U/L (12-78); ALBUMIN 3.7 g/dL (3.4-5.0); ALKALINE PHOSPHATASE 88 U/L (46-116); ANION GAP 7 mmol/L (8-16); ASPARTATE AMINOTRANSFERASE 18 U/L (15-37); BILIRUBIN,TOTAL 0.4 mg/dL (0.1-1.0); CALCIUM, TOTAL 9.4 mg/dL (8.8-10.5); CARBON DIOXIDE 32 mmol/L (22-29); CHLORIDE 102 mmol/L (98-107); CHOL/HDL RATIO 3.2 (4.2-7.3); CHOLESTEROL 212 mg/dL (131-200); FREE T4 (FREE THYROXINE) 1.02 ng/dL (0.76-1.46); GLOMERULAR FILTR. RATE CALC > 60 mL/min (>60); GLUCOSE,RANDOM 97 mg/dL (70-110); HDL CHOLESTEROL 66 mg/dL (40-60); LDL CHOL (CALC.) 125 mg/dL (0-130); POTASSIUM 4.1 mmol/L (3.5-5.1); SODIUM SERUM 141 mmol/L (136-145); THYROID STIMULATING HORMONE 2.32 uIU/mL (0.36-3.74); TOTAL PROTEIN, SERUM 7.4 g/dL (6.4-8.2); TRIGLYCERIDES 104 mg/dL (15-150); UREA NITROGEN, BLOOD 15 mg/dL (7-18)
[2018-02-21] MEDS: LORazepam 2 MG TABLET PO PRN (12:37)
[2018-02-21 16:09] VITALS: BP 112/81
[2018-02-21] MEDS: OLANZapine 10 MG TABLET PO SCH (20:33)
[2018-02-21] MEDS: ZOLPIDEM TARTRATE 10 MG TABLET PO PRN (21:11)
[2018-02-22 02:53] VITALS: BP 118/80
[2018-02-22] MEDS: LORazepam 2 MG TABLET PO PRN (02:56)
[2018-02-22] MEDS: CARBIDOPA/LEVODOPA 25-100 MG TABLET PO SCH ×3 (08:23→16:29)
[2018-02-22] MEDS: BENZTROPINE MESYLATE 1 MG TABLET PO SCH ×2 (08:23→16:29)
[2018-02-22] MEDS: DIVALPROEX SODIUM 250 MG DR TABLET PO SCH (08:23)
[2018-02-22 08:24] VITALS: BP 124/67
[2018-02-22] MEDS: DOCUSATE SODIUM 100 MG CAPSULE PO SCH (08:24)
[2018-02-22] MEDS: OMEPRAZOLE 20 MG CAPSULE PO SCH (08:24)
[2018-02-22 16:11] VITALS: BP 103/71
[2018-02-22] MEDS: OLANZapine 10 MG TABLET PO SCH (20:33)
[2018-02-22] MEDS: ZOLPIDEM TARTRATE 10 MG TABLET PO PRN (22:15)
[2018-02-23 05:37] VITALS: BP 120/81
[2018-02-23] MEDS: BENZTROPINE MESYLATE 1 MG TABLET PO SCH ×2 (08:25→16:43)
[2018-02-23] MEDS: DOCUSATE SODIUM 100 MG CAPSULE PO SCH (08:25)
[2018-02-23] MEDS: DIVALPROEX SODIUM 250 MG DR TABLET PO SCH (08:25)
[2018-02-23] MEDS: CARBIDOPA/LEVODOPA 25-100 MG TABLET PO SCH ×3 (08:25→16:43)
[2018-02-23] MEDS: OMEPRAZOLE 20 MG CAPSULE PO SCH (08:25)
[2018-02-23 08:30] VITALS: BP 125/80
[2018-02-23] MEDS: LORazepam 2 MG TABLET PO PRN (12:06)
[2018-02-23 16:16] VITALS: BP 110/71
[2018-02-23] MEDS: OLANZapine 10 MG TABLET PO SCH (20:35)
[2018-02-23] MEDS: ZOLPIDEM TARTRATE 10 MG TABLET PO PRN (21:35)
[2018-02-24 00:01] VITALS: BP 121/68
[2018-02-24] MEDS: LORazepam 2 MG TABLET PO PRN (00:29)
[2018-02-24] MEDS: IBUPROFEN 600 MG TABLET PO PRN (01:23)
[2018-02-24] MEDS: MAG HYDROX/AL HYDROX/SIMETH ES 30 ML SUSPENSION UDCUP PO PRN (01:23)
[2018-02-24 08:21] VITALS: BP 131/63
[2018-02-24] MEDS: BENZTROPINE MESYLATE 1 MG TABLET PO SCH ×2 (08:31→16:36)
[2018-02-24] MEDS: DOCUSATE SODIUM 100 MG CAPSULE PO SCH (08:31)
[2018-02-24] MEDS: OMEPRAZOLE 20 MG CAPSULE PO SCH (08:31)
[2018-02-24] MEDS: CARBIDOPA/LEVODOPA 25-100 MG TABLET PO SCH ×3 (08:31→16:36)
[2018-02-24] MEDS: DIVALPROEX SODIUM 250 MG DR TABLET PO SCH (08:31)
[2018-02-24 16:24] VITALS: BP 117/73
[2018-02-24] MEDS: OLANZapine 10 MG TABLET PO SCH (20:44)
[2018-02-24] MEDS: ZOLPIDEM TARTRATE 10 MG TABLET PO PRN (21:08)
[2018-02-25 01:23] VITALS: BP 121/72
[2018-02-25 08:47] VITALS: BP 131/79
[2018-02-25] MEDS: DOCUSATE SODIUM 100 MG CAPSULE PO SCH (08:55)
[2018-02-25] MEDS: BENZTROPINE MESYLATE 1 MG TABLET PO SCH ×2 (08:55→16:32)
[2018-02-25] MEDS: DIVALPROEX SODIUM 250 MG DR TABLET PO SCH (08:55)
[2018-02-25] MEDS: CARBIDOPA/LEVODOPA 25-100 MG TABLET PO SCH ×3 (08:56→16:32)
[2018-02-25] MEDS: OMEPRAZOLE 20 MG CAPSULE PO SCH (08:56)
[2018-02-25 16:22] VITALS: BP 122/72
[2018-02-25] MEDS: OLANZapine 10 MG TABLET PO SCH (20:16)
[2018-02-25] MEDS: ZOLPIDEM TARTRATE 10 MG TABLET PO PRN (21:05)
[2018-02-26 02:29] VITALS: BP 121/77
[2018-02-26] MEDS: LORazepam 2 MG TABLET PO PRN (02:48)
[2018-02-26 08:20] VITALS: BP 117/85
[2018-02-26] MEDS: OMEPRAZOLE 20 MG CAPSULE PO SCH (08:44)
[2018-02-26] MEDS: BENZTROPINE MESYLATE 1 MG TABLET PO SCH ×2 (08:44→16:40)
[2018-02-26] MEDS: DIVALPROEX SODIUM 250 MG DR TABLET PO SCH (08:44)
[2018-02-26] MEDS: CARBIDOPA/LEVODOPA 25-100 MG TABLET PO SCH ×3 (08:44→16:40)
[2018-02-26] MEDS: DOCUSATE SODIUM 100 MG CAPSULE PO SCH (08:44)
[2018-02-26 16:05] VITALS: BP 115/68
[2018-02-26] MEDS: OLANZapine 10 MG TABLET PO SCH (20:01)
[2018-02-26] MEDS: ZOLPIDEM TARTRATE 10 MG TABLET PO PRN (20:49)
[2018-02-27 03:40] VITALS: BP 118/76
[2018-02-27] MEDS: LORazepam 2 MG TABLET PO PRN ×2 (03:51→19:10)
[2018-02-27 08:24] VITALS: BP 123/76
[2018-02-27] MEDS: DIVALPROEX SODIUM 250 MG DR TABLET PO SCH (08:52)
[2018-02-27] MEDS: CARBIDOPA/LEVODOPA 25-100 MG TABLET PO SCH ×3 (08:52→16:55)
[2018-02-27] MEDS: OMEPRAZOLE 20 MG CAPSULE PO SCH (08:52)
[2018-02-27] MEDS: DOCUSATE SODIUM 100 MG CAPSULE PO SCH (08:52)
[2018-02-27] MEDS: BENZTROPINE MESYLATE 1 MG TABLET PO SCH ×2 (08:52→16:55)
[2018-02-27 16:32] VITALS: BP 118/60
[2018-02-27] MEDS: OLANZapine 10 MG TABLET PO SCH (20:49)
[2018-02-27] MEDS: ZOLPIDEM TARTRATE 10 MG TABLET PO PRN (21:08)
[2018-02-28 00:05] VITALS: BP 108/65
[2018-02-28] MEDS: IBUPROFEN 600 MG TABLET PO PRN (00:05)
[2018-02-28 08:37] VITALS: BP 139/67
[2018-02-28] MEDS: OMEPRAZOLE 20 MG CAPSULE PO SCH (09:26)
[2018-02-28] MEDS: DIVALPROEX SODIUM 250 MG DR TABLET PO SCH (09:26)
[2018-02-28] MEDS: DOCUSATE SODIUM 100 MG CAPSULE PO SCH (09:26)
[2018-02-28] MEDS: BENZTROPINE MESYLATE 1 MG TABLET PO SCH ×2 (09:26→16:55)
[2018-02-28] MEDS: CARBIDOPA/LEVODOPA 25-100 MG TABLET PO SCH ×3 (09:27→16:55)
[2018-02-28] MEDS: LORazepam 2 MG TABLET PO PRN (13:09)
[2018-02-28 16:33] VITALS: BP 109/75
[2018-02-28] MEDS: OLANZapine 10 MG TABLET PO SCH (20:49)
[2018-02-28] MEDS: ZOLPIDEM TARTRATE 10 MG TABLET PO PRN (22:34)
[2018-03-01 00:34] VITALS: BP 109/66
[2018-03-01] MEDS: DOCUSATE SODIUM 100 MG CAPSULE PO SCH (08:59)
[2018-03-01] MEDS: OMEPRAZOLE 20 MG CAPSULE PO SCH (08:59)
[2018-03-01] MEDS: BENZTROPINE MESYLATE 1 MG TABLET PO SCH ×2 (08:59→16:36)
[2018-03-01] MEDS: CARBIDOPA/LEVODOPA 25-100 MG TABLET PO SCH ×3 (08:59→16:36)
[2018-03-01] MEDS: DIVALPROEX SODIUM 250 MG DR TABLET PO SCH (08:59)
[2018-03-01 09:11] VITALS: BP 118/76
[2018-03-01] MEDS: LORazepam 2 MG TABLET PO PRN (12:29)
[2018-03-01 16:20] VITALS: BP 113/69
[2018-03-01] MEDS: OLANZapine 10 MG TABLET PO SCH (20:08)
[2018-03-01] MEDS: ZOLPIDEM TARTRATE 10 MG TABLET PO PRN (20:09)
[2018-03-02] MEDS: LORazepam 2 MG TABLET PO PRN ×2 (02:37→12:05)
[2018-03-02 05:28] VITALS: BP 136/82
[2018-03-02 08:36] VITALS: BP 117/68
[2018-03-02] MEDS: DOCUSATE SODIUM 100 MG CAPSULE PO SCH (08:40)
[2018-03-02] MEDS: BENZTROPINE MESYLATE 1 MG TABLET PO SCH ×2 (08:40→16:31)
[2018-03-02] MEDS: OMEPRAZOLE 20 MG CAPSULE PO SCH (08:41)
[2018-03-02] MEDS: CARBIDOPA/LEVODOPA 25-100 MG TABLET PO SCH ×3 (08:41→16:31)
[2018-03-02] MEDS: DIVALPROEX SODIUM 250 MG DR TABLET PO SCH (08:41)
[2018-03-02 16:24] VITALS: BP 113/77
[2018-03-02] MEDS: OLANZapine 10 MG TABLET PO SCH (20:18)
[2018-03-02] MEDS: ZOLPIDEM TARTRATE 10 MG TABLET PO PRN (20:45)
[2018-03-03 00:50] VITALS: BP 124/80
[2018-03-03] MEDS: LORazepam 2 MG TABLET PO PRN ×2 (00:52→20:13)
[2018-03-03 08:05] VITALS: BP 111/73
[2018-03-03] MEDS: CARBIDOPA/LEVODOPA 25-100 MG TABLET PO SCH ×3 (08:36→16:23)
[2018-03-03] MEDS: DIVALPROEX SODIUM 250 MG DR TABLET PO SCH (08:36)
[2018-03-03] MEDS: OMEPRAZOLE 20 MG CAPSULE PO SCH (08:36)
[2018-03-03] MEDS: BENZTROPINE MESYLATE 1 MG TABLET PO SCH ×2 (08:36→16:23)
[2018-03-03] MEDS: DOCUSATE SODIUM 100 MG CAPSULE PO SCH (08:39)
[2018-03-03] MEDS ORDERED: TUBERCULIN, PURIFIED PROTEIN DERIVATIVE 5 TU/0.1 ML SYRINGE ID ONE (15:00)
[2018-03-03 16:20] VITALS: BP 110/66
[2018-03-03] MEDS: OLANZapine 10 MG TABLET PO SCH (20:13)
[2018-03-03] MEDS: ZOLPIDEM TARTRATE 10 MG TABLET PO PRN (22:01)
[2018-03-04 04:20] VITALS: BP 116/71
[2018-03-04 08:22] VITALS: BP 137/83
[2018-03-04] MEDS: BENZTROPINE MESYLATE 1 MG TABLET PO SCH ×2 (08:33→16:39)
[2018-03-04] MEDS: DIVALPROEX SODIUM 250 MG DR TABLET PO SCH (08:33)
[2018-03-04] MEDS: OMEPRAZOLE 20 MG CAPSULE PO SCH (08:33)
[2018-03-04] MEDS: DOCUSATE SODIUM 100 MG CAPSULE PO SCH (08:33)
[2018-03-04] MEDS: CARBIDOPA/LEVODOPA 25-100 MG TABLET PO SCH ×3 (08:33→16:39)
[2018-03-04 16:08] VITALS: BP 140/86
[2018-03-04] MEDS: LORazepam 2 MG TABLET PO PRN (16:45)
[2018-03-04] MEDS: OLANZapine 10 MG TABLET PO SCH (20:35)
[2018-03-04] MEDS: ZOLPIDEM TARTRATE 10 MG TABLET PO PRN (20:56)
[2018-03-05 02:51] VITALS: BP 128/78
[2018-03-05 08:48] VITALS: BP 117/77
[2018-03-05] MEDS: OMEPRAZOLE 20 MG CAPSULE PO SCH (08:50)
[2018-03-05] MEDS: DIVALPROEX SODIUM 250 MG DR TABLET PO SCH (08:50)
[2018-03-05] MEDS: CARBIDOPA/LEVODOPA 25-100 MG TABLET PO SCH ×3 (08:50→16:35)
[2018-03-05] MEDS: DOCUSATE SODIUM 100 MG CAPSULE PO SCH (08:50)
[2018-03-05] MEDS: BENZTROPINE MESYLATE 1 MG TABLET PO SCH ×2 (08:50→16:35)
[2018-03-05] MEDS: LORazepam 2 MG TABLET PO PRN (13:23)
[2018-03-05 16:03] VITALS: BP 124/80
[2018-03-05] MEDS: OLANZapine 10 MG TABLET PO SCH (20:31)
[2018-03-05] MEDS: ZOLPIDEM TARTRATE 10 MG TABLET PO PRN (21:12)
[2018-03-06] VITALS: BP 140/83
[2018-03-06 08:33] VITALS: BP 121/72
[2018-03-06] MEDS: CARBIDOPA/LEVODOPA 25-100 MG TABLET PO SCH ×3 (08:44→16:17)
[2018-03-06] MEDS: BENZTROPINE MESYLATE 1 MG TABLET PO SCH ×2 (08:44→16:17)
[2018-03-06] MEDS: DOCUSATE SODIUM 100 MG CAPSULE PO SCH (08:44)
[2018-03-06] MEDS: OMEPRAZOLE 20 MG CAPSULE PO SCH (08:44)
[2018-03-06] MEDS: DIVALPROEX SODIUM 250 MG DR TABLET PO SCH (08:44)
[2018-03-06] MEDS: LORazepam 2 MG TABLET PO PRN (12:15)
[2018-03-06 16:14] VITALS: BP 112/74
[2018-03-06] MEDS: OLANZapine 10 MG TABLET PO SCH (20:33)
[2018-03-06] MEDS: ZOLPIDEM TARTRATE 10 MG TABLET PO PRN (20:33)
[2018-03-07 02:00] VITALS: BP 111/74
[2018-03-07 07:56] VITALS: BP 109/74
[2018-03-07] MEDS: OMEPRAZOLE 20 MG CAPSULE PO SCH (08:31)
[2018-03-07] MEDS: BENZTROPINE MESYLATE 1 MG TABLET PO SCH ×2 (08:31→16:32)
[2018-03-07] MEDS: CARBIDOPA/LEVODOPA 25-100 MG TABLET PO SCH ×3 (08:31→16:32)
[2018-03-07] MEDS: DOCUSATE SODIUM 100 MG CAPSULE PO SCH (08:31)
[2018-03-07] MEDS: DIVALPROEX SODIUM 250 MG DR TABLET PO SCH (08:31)
[2018-03-07 09:21] VITALS: BP 109/74
[2018-03-07] MEDS: LORazepam 2 MG TABLET PO PRN ×2 (13:04→20:59)
[2018-03-07 16:08] VITALS: BP 116/76
[2018-03-07] MEDS: OLANZapine 10 MG TABLET PO SCH (20:35)
[2018-03-08] MEDS: ZOLPIDEM TARTRATE 10 MG TABLET PO PRN ×2 (00:05→20:45)
[2018-03-08 01:50] VITALS: BP 135/91
[2018-03-08 08:17] VITALS: BP 112/72
[2018-03-08] MEDS: DIVALPROEX SODIUM 250 MG DR TABLET PO SCH (08:31)
[2018-03-08] MEDS: DOCUSATE SODIUM 100 MG CAPSULE PO SCH (08:31)
[2018-03-08] MEDS: OMEPRAZOLE 20 MG CAPSULE PO SCH (08:31)
[2018-03-08] MEDS: BENZTROPINE MESYLATE 1 MG TABLET PO SCH ×2 (08:31→16:58)
[2018-03-08] MEDS: CARBIDOPA/LEVODOPA 25-100 MG TABLET PO SCH ×3 (08:31→16:58)
[2018-03-08] MEDS: LORazepam 2 MG TABLET PO PRN (12:03)
[2018-03-08 16:28] VITALS: BP 104/66
[2018-03-08] MEDS: OLANZapine 10 MG TABLET PO SCH (21:16)
[2018-03-09] MEDS: LORazepam 2 MG TABLET PO PRN ×3 (00:05→20:02)
[2018-03-09 00:20] VITALS: BP 110/68
[2018-03-09 08:11] VITALS: BP 118/71
[2018-03-09] MEDS: OMEPRAZOLE 20 MG CAPSULE PO SCH (08:32)
[2018-03-09] MEDS: BENZTROPINE MESYLATE 1 MG TABLET PO SCH ×2 (08:32→16:37)
[2018-03-09] MEDS: CARBIDOPA/LEVODOPA 25-100 MG TABLET PO SCH ×3 (08:32→16:37)
[2018-03-09] MEDS: DIVALPROEX SODIUM 250 MG DR TABLET PO SCH (08:32)
[2018-03-09] MEDS: DOCUSATE SODIUM 100 MG CAPSULE PO SCH (08:32)
[2018-03-09 16:27] VITALS: BP 109/73
[2018-03-09] MEDS: OLANZapine 10 MG TABLET PO SCH (20:36)
[2018-03-09] MEDS: ZOLPIDEM TARTRATE 10 MG TABLET PO PRN (21:56)
[2018-03-10] MEDS: LORazepam 2 MG TABLET PO PRN ×3 (00:07→20:53)
[2018-03-10 08:06] VITALS: BP 110/73
[2018-03-10] MEDS: DOCUSATE SODIUM 100 MG CAPSULE PO SCH (08:18)
[2018-03-10] MEDS: DIVALPROEX SODIUM 250 MG DR TABLET PO SCH (08:18)
[2018-03-10] MEDS: BENZTROPINE MESYLATE 1 MG TABLET PO SCH ×2 (08:18→16:37)
[2018-03-10] MEDS: CARBIDOPA/LEVODOPA 25-100 MG TABLET PO SCH ×3 (08:18→16:37)
[2018-03-10] MEDS: OMEPRAZOLE 20 MG CAPSULE PO SCH (08:18)
[2018-03-10 16:28] VITALS: BP 122/72
[2018-03-10] MEDS: OLANZapine 10 MG TABLET PO SCH (20:28)
[2018-03-10] MEDS: ZOLPIDEM TARTRATE 10 MG TABLET PO PRN (22:18)
[2018-03-11] MEDS: ACETAMINOPHEN 325 MG TABLET PO PRN (00:05)
[2018-03-11 00:11] VITALS: BP 124/77
[2018-03-11] MEDS: LORazepam 2 MG TABLET PO PRN ×2 (03:37→12:18)
[2018-03-11 08:30] VITALS: BP 120/63
[2018-03-11] MEDS: OMEPRAZOLE 20 MG CAPSULE PO SCH (08:33)
[2018-03-11] MEDS: DIVALPROEX SODIUM 250 MG DR TABLET PO SCH (08:33)
[2018-03-11] MEDS: BENZTROPINE MESYLATE 1 MG TABLET PO SCH ×2 (08:33→16:30)
[2018-03-11] MEDS: CARBIDOPA/LEVODOPA 25-100 MG TABLET PO SCH ×3 (08:33→16:30)
[2018-03-11] MEDS: DOCUSATE SODIUM 100 MG CAPSULE PO SCH (08:33)
[2018-03-11 16:31] VITALS: BP 115/80
[2018-03-11] MEDS: OLANZapine 10 MG TABLET PO SCH (20:06)
[2018-03-11] MEDS: ZOLPIDEM TARTRATE 10 MG TABLET PO PRN (20:59)
[2018-03-12 05:39] VITALS: BP 114/77
[2018-03-12] MEDS: LORazepam 2 MG TABLET PO PRN ×2 (06:30→16:10)
[2018-03-12] MEDS: BENZTROPINE MESYLATE 1 MG TABLET PO SCH ×2 (08:24→16:10)
[2018-03-12] MEDS: CARBIDOPA/LEVODOPA 25-100 MG TABLET PO SCH ×3 (08:24→16:10)
[2018-03-12] MEDS: DIVALPROEX SODIUM 250 MG DR TABLET PO SCH (08:24)
[2018-03-12] MEDS: OMEPRAZOLE 20 MG CAPSULE PO SCH (08:24)
[2018-03-12] MEDS: DOCUSATE SODIUM 100 MG CAPSULE PO SCH (08:24)
[2018-03-12 08:31] VITALS: BP 113/82
[2018-03-12 16:02] VITALS: BP 108/67
[2018-03-12] MEDS: OLANZapine 10 MG TABLET PO SCH (20:17)
[2018-03-12] MEDS: ZOLPIDEM TARTRATE 10 MG TABLET PO PRN (21:14)
[2018-03-13] VITALS: BP 110/68
[2018-03-13] MEDS: LORazepam 2 MG TABLET PO PRN ×3 (00:04→20:47)
[2018-03-13 08:21] VITALS: BP 95/121
[2018-03-13] MEDS: DIVALPROEX SODIUM 250 MG DR TABLET PO SCH (09:01)
[2018-03-13] MEDS: OMEPRAZOLE 20 MG CAPSULE PO SCH (09:02)
[2018-03-13] MEDS: DOCUSATE SODIUM 100 MG CAPSULE PO SCH (09:02)
[2018-03-13] MEDS: CARBIDOPA/LEVODOPA 25-100 MG TABLET PO SCH ×3 (09:02→17:26)
[2018-03-13] MEDS: BENZTROPINE MESYLATE 1 MG TABLET PO SCH ×2 (09:02→17:26)
[2018-03-13 16:18] VITALS: BP 120/73
[2018-03-13] MEDS: OLANZapine 10 MG TABLET PO SCH (21:07)
[2018-03-13] MEDS: ZOLPIDEM TARTRATE 10 MG TABLET PO PRN (22:36)
[2018-03-14 04:40] VITALS: BP 113/61
[2018-03-14] MEDS: LORazepam 2 MG TABLET PO PRN ×2 (04:47→13:00)
[2018-03-14 08:41] VITALS: BP 124/84
[2018-03-14] MEDS: CARBIDOPA/LEVODOPA 25-100 MG TABLET PO SCH ×3 (08:43→16:41)
[2018-03-14] MEDS: DIVALPROEX SODIUM 250 MG DR TABLET PO SCH (08:43)
[2018-03-14] MEDS: BENZTROPINE MESYLATE 1 MG TABLET PO SCH ×2 (08:43→16:41)
[2018-03-14] MEDS: DOCUSATE SODIUM 100 MG CAPSULE PO SCH (08:43)
[2018-03-14] MEDS: OMEPRAZOLE 20 MG CAPSULE PO SCH (08:43)
[2018-03-14 16:20] VITALS: BP 120/81
[2018-03-14] MEDS: OLANZapine 10 MG TABLET PO SCH (20:24)
[2018-03-14] MEDS: ZOLPIDEM TARTRATE 10 MG TABLET PO PRN (21:38)
[2018-03-15 00:05] VITALS: BP 122/76
[2018-03-15] MEDS: LORazepam 2 MG TABLET PO PRN ×3 (00:47→21:45)
[2018-03-15] MEDS: CARBIDOPA/LEVODOPA 25-100 MG TABLET PO SCH ×3 (08:25→16:14)
[2018-03-15] MEDS: OMEPRAZOLE 20 MG CAPSULE PO SCH (08:25)
[2018-03-15] MEDS: DIVALPROEX SODIUM 250 MG DR TABLET PO SCH (08:25)
[2018-03-15] MEDS: BENZTROPINE MESYLATE 1 MG TABLET PO SCH ×2 (08:25→16:14)
[2018-03-15] MEDS: DOCUSATE SODIUM 100 MG CAPSULE PO SCH (08:25)
[2018-03-15 09:34] VITALS: BP 105/71
[2018-03-15 16:25] VITALS: BP 120/80
[2018-03-15] MEDS: OLANZapine 10 MG TABLET PO SCH (20:17)
[2018-03-15] MEDS: ZOLPIDEM TARTRATE 10 MG TABLET PO PRN (21:49)
[2018-03-15] MEDS: MAG HYDROX/AL HYDROX/SIMETH ES 30 ML SUSPENSION UDCUP PO PRN (23:56)
[2018-03-16 01:05] VITALS: BP 134/87
[2018-03-16 08:28] VITALS: BP 108/74
[2018-03-16] MEDS: DOCUSATE SODIUM 100 MG CAPSULE PO SCH (08:45)
[2018-03-16] MEDS: DIVALPROEX SODIUM 250 MG DR TABLET PO SCH (08:45)
[2018-03-16] MEDS: BENZTROPINE MESYLATE 1 MG TABLET PO SCH ×2 (08:45→16:16)
[2018-03-16] MEDS: CARBIDOPA/LEVODOPA 25-100 MG TABLET PO SCH ×3 (08:45→16:16)
[2018-03-16] MEDS: OMEPRAZOLE 20 MG CAPSULE PO SCH (08:45)
[2018-03-16] MEDS: LORazepam 2 MG TABLET PO PRN ×2 (12:05→22:18)
[2018-03-16 16:09] VITALS: BP 120/75
[2018-03-16] MEDS: OLANZapine 10 MG TABLET PO SCH (21:37)
[2018-03-17 02:15] VITALS: BP 118/68
[2018-03-17] MEDS: LORazepam 2 MG TABLET PO PRN ×2 (02:25→12:24)
[2018-03-17 08:22] VITALS: BP 118/62
[2018-03-17] MEDS: OMEPRAZOLE 20 MG CAPSULE PO SCH (08:31)
[2018-03-17] MEDS: CARBIDOPA/LEVODOPA 25-100 MG TABLET PO SCH ×3 (08:31→16:18)
[2018-03-17] MEDS: DIVALPROEX SODIUM 250 MG DR TABLET PO SCH (08:31)
[2018-03-17] MEDS: BENZTROPINE MESYLATE 1 MG TABLET PO SCH ×2 (08:31→16:18)
[2018-03-17] MEDS: DOCUSATE SODIUM 100 MG CAPSULE PO SCH (08:31)
[2018-03-17 16:25] VITALS: BP 119/81
[2018-03-17] MEDS: OLANZapine 10 MG TABLET PO SCH (20:29)
[2018-03-18 00:09] VITALS: BP 140/89
[2018-03-18] MEDS: LORazepam 2 MG TABLET PO PRN ×3 (00:22→20:15)
[2018-03-18 08:14] VITALS: BP 124/92
[2018-03-18] MEDS: BENZTROPINE MESYLATE 1 MG TABLET PO SCH ×2 (08:47→16:09)
[2018-03-18] MEDS: CARBIDOPA/LEVODOPA 25-100 MG TABLET PO SCH ×3 (08:47→16:09)
[2018-03-18] MEDS: DOCUSATE SODIUM 100 MG CAPSULE PO SCH (08:47)
[2018-03-18] MEDS: OMEPRAZOLE 20 MG CAPSULE PO SCH (08:47)
[2018-03-18] MEDS: DIVALPROEX SODIUM 250 MG DR TABLET PO SCH (08:47)
[2018-03-18 16:11] VITALS: BP 117/84
[2018-03-18] MEDS: OLANZapine 10 MG TABLET PO SCH (20:15)
[2018-03-18] MEDS: ZOLPIDEM TARTRATE 10 MG TABLET PO PRN (21:54)
[2018-03-19 01:28] VITALS: BP 131/79
[2018-03-19] MEDS: LORazepam 2 MG TABLET PO PRN ×3 (03:02→20:29)
[2018-03-19 08:04] VITALS: BP 123/80
[2018-03-19] MEDS: CARBIDOPA/LEVODOPA 25-100 MG TABLET PO SCH ×3 (09:28→16:34)
[2018-03-19] MEDS: OMEPRAZOLE 20 MG CAPSULE PO SCH (09:28)
[2018-03-19] MEDS: DOCUSATE SODIUM 100 MG CAPSULE PO SCH (09:29)
[2018-03-19] MEDS: BENZTROPINE MESYLATE 1 MG TABLET PO SCH ×2 (09:29→16:34)
[2018-03-19] MEDS: DIVALPROEX SODIUM 250 MG DR TABLET PO SCH (09:29)
[2018-03-19 16:13] VITALS: BP 108/75
[2018-03-19] MEDS: OLANZapine 10 MG TABLET PO SCH (20:28)
[2018-03-19] MEDS: ZOLPIDEM TARTRATE 10 MG TABLET PO PRN (22:41)
[2018-03-20] VITALS: BP 111/82
[2018-03-20] MEDS: MAG HYDROX/AL HYDROX/SIMETH ES 30 ML SUSPENSION UDCUP PO PRN (00:21)
[2018-03-20 08:47] VITALS: BP 111/74
[2018-03-20] MEDS: DOCUSATE SODIUM 100 MG CAPSULE PO SCH (09:00)
[2018-03-20] MEDS: DIVALPROEX SODIUM 250 MG DR TABLET PO SCH (09:34)
[2018-03-20] MEDS: CARBIDOPA/LEVODOPA 25-100 MG TABLET PO SCH ×3 (09:34→16:39)
[2018-03-20] MEDS: OMEPRAZOLE 20 MG CAPSULE PO SCH (09:34)
[2018-03-20] MEDS: BENZTROPINE MESYLATE 1 MG TABLET PO SCH ×2 (10:22→16:39)
[2018-03-20] MEDS: LORazepam 2 MG TABLET PO PRN ×2 (12:11→20:06)
[2018-03-20 16:17] VITALS: BP 125/79
[2018-03-20] MEDS: OLANZapine 10 MG TABLET PO SCH (20:31)
[2018-03-20] MEDS: ZOLPIDEM TARTRATE 10 MG TABLET PO PRN (22:17)
[2018-03-21] MEDS: LORazepam 2 MG TABLET PO PRN ×3 (00:44→20:39)
[2018-03-21 00:59] VITALS: BP 122/93
[2018-03-21 08:26] VITALS: BP 109/66
[2018-03-21] MEDS: CARBIDOPA/LEVODOPA 25-100 MG TABLET PO SCH ×3 (08:50→16:45)
[2018-03-21] MEDS: DOCUSATE SODIUM 100 MG CAPSULE PO SCH (08:50)
[2018-03-21] MEDS: DIVALPROEX SODIUM 250 MG DR TABLET PO SCH (08:50)
[2018-03-21] MEDS: BENZTROPINE MESYLATE 1 MG TABLET PO SCH ×2 (08:50→16:45)
[2018-03-21] MEDS: OMEPRAZOLE 20 MG CAPSULE PO SCH (08:50)
[2018-03-21 16:18] VITALS: BP 116/86
[2018-03-21] MEDS: OLANZapine 10 MG TABLET PO SCH (20:07)
[2018-03-22 05:20] VITALS: BP 120/81
[2018-03-22 08:18] VITALS: BP 113/62
[2018-03-22] MEDS: DIVALPROEX SODIUM 250 MG DR TABLET PO SCH (09:59)
[2018-03-22] MEDS: DOCUSATE SODIUM 100 MG CAPSULE PO SCH (09:59)
[2018-03-22] MEDS: BENZTROPINE MESYLATE 1 MG TABLET PO SCH ×2 (09:59→16:57)
[2018-03-22] MEDS: CARBIDOPA/LEVODOPA 25-100 MG TABLET PO SCH ×3 (09:59→16:57)
[2018-03-22] MEDS: OMEPRAZOLE 20 MG CAPSULE PO SCH (09:59)
[2018-03-22] MEDS: LORazepam 2 MG TABLET PO PRN ×2 (13:43→20:27)
[2018-03-22 16:36] VITALS: BP 113/68
[2018-03-22] MEDS: OLANZapine 10 MG TABLET PO SCH (20:27)
[2018-03-23 00:17] VITALS: BP 111/75
[2018-03-23] MEDS: ZOLPIDEM TARTRATE 10 MG TABLET PO PRN ×2 (00:34→22:42)
[2018-03-23 08:12] VITALS: BP 112/76
[2018-03-23] MEDS: BENZTROPINE MESYLATE 1 MG TABLET PO SCH ×2 (08:49→16:25)
[2018-03-23] MEDS: DIVALPROEX SODIUM 250 MG DR TABLET PO SCH (08:49)
[2018-03-23] MEDS: DOCUSATE SODIUM 100 MG CAPSULE PO SCH (08:49)
[2018-03-23] MEDS: OMEPRAZOLE 20 MG CAPSULE PO SCH (08:49)
[2018-03-23] MEDS: CARBIDOPA/LEVODOPA 25-100 MG TABLET PO SCH ×3 (08:49→16:25)
[2018-03-23] MEDS: LORazepam 2 MG TABLET PO PRN ×2 (15:48→21:00)
[2018-03-23 16:19] VITALS: BP 130/83
[2018-03-23] MEDS: OLANZapine 10 MG TABLET PO SCH (20:21)
[2018-03-24 02:45] VITALS: BP 129/75
[2018-03-24] MEDS: OMEPRAZOLE 20 MG CAPSULE PO SCH (08:13)
[2018-03-24] MEDS: CARBIDOPA/LEVODOPA 25-100 MG TABLET PO SCH ×3 (08:13→16:47)
[2018-03-24] MEDS: DOCUSATE SODIUM 100 MG CAPSULE PO SCH (08:13)
[2018-03-24] MEDS: DIVALPROEX SODIUM 250 MG DR TABLET PO SCH (08:13)
[2018-03-24] MEDS: BENZTROPINE MESYLATE 1 MG TABLET PO SCH ×2 (08:13→16:47)
[2018-03-24 08:15] VITALS: BP 115/77
[2018-03-24] MEDS: LORazepam 2 MG TABLET PO PRN ×2 (12:00→19:16)
[2018-03-24 16:30] VITALS: BP 141/93
[2018-03-24] MEDS: OLANZapine 10 MG TABLET PO SCH (20:32)
[2018-03-24 20:40] VITALS: BP 125/74
[2018-03-25 04:00] VITALS: BP 123/81
[2018-03-25 08:21] VITALS: BP 110/56
[2018-03-25] MEDS: CARBIDOPA/LEVODOPA 25-100 MG TABLET PO SCH ×3 (08:43→16:57)
[2018-03-25] MEDS: OMEPRAZOLE 20 MG CAPSULE PO SCH (08:43)
[2018-03-25] MEDS: DIVALPROEX SODIUM 250 MG DR TABLET PO SCH (08:43)
[2018-03-25] MEDS: BENZTROPINE MESYLATE 1 MG TABLET PO SCH ×2 (08:43→16:57)
[2018-03-25] MEDS: DOCUSATE SODIUM 100 MG CAPSULE PO SCH (08:46)
[2018-03-25 16:16] VITALS: BP 111/74
[2018-03-25] MEDS: LORazepam 2 MG TABLET PO PRN (18:52)
[2018-03-25] MEDS: OLANZapine 10 MG TABLET PO SCH (20:37)
[2018-03-26 01:07] VITALS: BP 121/76
[2018-03-26] MEDS: ZOLPIDEM TARTRATE 10 MG TABLET PO PRN ×2 (01:08→21:06)
[2018-03-26] MEDS: IBUPROFEN 600 MG TABLET PO PRN (04:23)
[2018-03-26 04:24] VITALS: BP 116/74
[2018-03-26 07:37] LABS: BASOPHILS % (AUTO) 0.3 % (0.0-2.0); HEMATOCRIT 42.6 % (41-53); HEMOGLOBIN 14.7 g/dL (13.5-17.5); LYMPHOCYTES # (AUTO) 2.1 K/uL (1.0-4.8); LYMPHOCYTES % (AUTO) 36.3 % (22.0-44.0); MEAN CORPUSCULAR HEMOGLOBIN 30.2 pg (26.0-34.0); MEAN CORPUSCULAR HGB CONC 34.4 G/dL (31.0-37.0); MEAN CORPUSCULAR VOLUME 88 fL (80-100); MONOCYTES # (AUTO) 0.6 K/uL (0.1-1.0); MONOCYTES % (AUTO) 10.4 % (2.0-9.0); NEUTROPHILS # (AUTO) 2.8 K/uL (1.8-7.7); PLATELET COUNT (AUTO) 265 K/uL (150-450); RED BLOOD CELL COUNT(AUTO) 4.85 MIL/uL (4.50-5.90); RED CELL DISTRIBUTION WIDTH 12.9 % (11.5-14.5)
[2018-03-26 07:49] LABS: ANION GAP 5 mmol/L (8-16); CARBON DIOXIDE 33 mmol/L (22-29); CHLORIDE 102 mmol/L (98-107); CREATININE 0.87 mg/dL (0.60-1.30); GLOMERULAR FILTR. RATE CALC > 60 mL/min (>60); GLUCOSE,RANDOM 95 mg/dL (70-110); POTASSIUM 4.1 mmol/L (3.5-5.1); SODIUM SERUM 140 mmol/L (136-145); UREA NITROGEN, BLOOD 16 mg/dL (7-18)
[2018-03-26 08:32] VITALS: BP 127/77
[2018-03-26] MEDS: BENZTROPINE MESYLATE 1 MG TABLET PO SCH ×2 (08:44→16:31)
[2018-03-26] MEDS: DIVALPROEX SODIUM 250 MG DR TABLET PO SCH (08:44)
[2018-03-26] MEDS: DOCUSATE SODIUM 100 MG CAPSULE PO SCH (08:44)
[2018-03-26] MEDS: CARBIDOPA/LEVODOPA 25-100 MG TABLET PO SCH ×3 (08:44→16:31)
[2018-03-26] MEDS: OMEPRAZOLE 20 MG CAPSULE PO SCH (08:44)
[2018-03-26] MEDS: LORazepam 2 MG TABLET PO PRN ×2 (14:23→19:19)
[2018-03-26 16:02] VITALS: BP 124/74
[2018-03-26] MEDS: OLANZapine 10 MG TABLET PO SCH (20:09)
[2018-03-27 02:04] VITALS: BP 122/70
[2018-03-27] MEDS: ACETAMINOPHEN 325 MG TABLET PO PRN (02:04)
[2018-03-27] MEDS: LORazepam 2 MG TABLET PO PRN ×2 (02:04→20:10)
[2018-03-27 08:00] VITALS: BP 131/78
[2018-03-27] MEDS: CARBIDOPA/LEVODOPA 25-100 MG TABLET PO SCH ×3 (09:10→16:35)
[2018-03-27] MEDS: DOCUSATE SODIUM 100 MG CAPSULE PO SCH (09:10)
[2018-03-27] MEDS: DIVALPROEX SODIUM 250 MG DR TABLET PO SCH (09:10)
[2018-03-27] MEDS: BENZTROPINE MESYLATE 1 MG TABLET PO SCH ×2 (09:10→16:35)
[2018-03-27] MEDS: OMEPRAZOLE 20 MG CAPSULE PO SCH (09:10)
[2018-03-27 16:27] VITALS: BP 132/84
[2018-03-27] MEDS: OLANZapine 10 MG TABLET PO SCH (20:37)
[2018-03-28 00:47] VITALS: BP 128/72
[2018-03-28] MEDS: ZOLPIDEM TARTRATE 10 MG TABLET PO PRN ×2 (01:50→22:39)
[2018-03-28] MEDS: LORazepam 2 MG TABLET PO PRN ×3 (04:59→20:39)
[2018-03-28 08:20] VITALS: BP 124/67
[2018-03-28] MEDS: CARBIDOPA/LEVODOPA 25-100 MG TABLET PO SCH ×3 (08:37→16:36)
[2018-03-28] MEDS: DIVALPROEX SODIUM 250 MG DR TABLET PO SCH (08:37)
[2018-03-28] MEDS: OMEPRAZOLE 20 MG CAPSULE PO SCH (08:37)
[2018-03-28] MEDS: DOCUSATE SODIUM 100 MG CAPSULE PO SCH (08:37)
[2018-03-28] MEDS: BENZTROPINE MESYLATE 1 MG TABLET PO SCH ×2 (08:37→16:36)
[2018-03-28 16:36] VITALS: BP 117/78
[2018-03-28] MEDS: OLANZapine 10 MG TABLET PO SCH (21:09)
[2018-03-29] MEDS: LORazepam 2 MG TABLET PO PRN ×3 (01:25→19:57)
[2018-03-29 01:45] VITALS: BP 114/74
[2018-03-29 08:34] VITALS: BP 116/76
[2018-03-29] MEDS: BENZTROPINE MESYLATE 1 MG TABLET PO SCH ×2 (08:45→16:34)
[2018-03-29] MEDS: DIVALPROEX SODIUM 250 MG DR TABLET PO SCH (08:45)
[2018-03-29] MEDS: CARBIDOPA/LEVODOPA 25-100 MG TABLET PO SCH ×3 (08:45→16:34)
[2018-03-29] MEDS: OMEPRAZOLE 20 MG CAPSULE PO SCH (08:45)
[2018-03-29] MEDS: DOCUSATE SODIUM 100 MG CAPSULE PO SCH (08:45)
[2018-03-29 16:24] VITALS: BP 105/65
[2018-03-29] MEDS: OLANZapine 10 MG TABLET PO SCH (20:39)
[2018-03-29] MEDS: ZOLPIDEM TARTRATE 10 MG TABLET PO PRN (22:27)
[2018-03-30] MEDS: LORazepam 2 MG TABLET PO PRN ×2 (03:14→21:39)
[2018-03-30 05:40] VITALS: BP 128/69
[2018-03-30 08:28] VITALS: BP 130/80
[2018-03-30] MEDS: BENZTROPINE MESYLATE 1 MG TABLET PO SCH ×2 (08:47→17:13)
[2018-03-30] MEDS: CARBIDOPA/LEVODOPA 25-100 MG TABLET PO SCH ×3 (08:47→17:14)
[2018-03-30] MEDS: DIVALPROEX SODIUM 250 MG DR TABLET PO SCH (08:47)
[2018-03-30] MEDS: OMEPRAZOLE 20 MG CAPSULE PO SCH (08:47)
[2018-03-30] MEDS: DOCUSATE SODIUM 100 MG CAPSULE PO SCH (08:47)
[2018-03-30 16:41] VITALS: BP 122/74
[2018-03-30] MEDS: OLANZapine 10 MG TABLET PO SCH (21:00)
[2018-03-30] MEDS: ZOLPIDEM TARTRATE 10 MG TABLET PO PRN (23:32)
[2018-03-31 00:10] VITALS: BP 106/77
[2018-03-31] MEDS: MAG HYDROX/AL HYDROX/SIMETH ES 30 ML SUSPENSION UDCUP PO PRN (00:47)
[2018-03-31 08:24] VITALS: BP 126/74
[2018-03-31] MEDS: OMEPRAZOLE 20 MG CAPSULE PO SCH (08:45)
[2018-03-31] MEDS: DIVALPROEX SODIUM 250 MG DR TABLET PO SCH (08:45)
[2018-03-31] MEDS: BENZTROPINE MESYLATE 1 MG TABLET PO SCH ×2 (08:45→17:12)
[2018-03-31] MEDS: CARBIDOPA/LEVODOPA 25-100 MG TABLET PO SCH ×3 (08:46→17:12)
[2018-03-31] MEDS: DOCUSATE SODIUM 100 MG CAPSULE PO SCH (08:46)
[2018-03-31] MEDS: LORazepam 2 MG TABLET PO PRN ×2 (12:39→20:26)
[2018-03-31 16:12] VITALS: BP 120/69
[2018-03-31] MEDS: OLANZapine 10 MG TABLET PO SCH (20:26)
[2018-04-01 01:14] VITALS: BP 118/70
[2018-04-01] MEDS: ZOLPIDEM TARTRATE 10 MG TABLET PO PRN ×2 (01:21→22:00)
[2018-04-01 07:54] VITALS: BP 124/79
[2018-04-01 08:30] VITALS: BP 124/79
[2018-04-01] MEDS: DIVALPROEX SODIUM 250 MG DR TABLET PO SCH (09:09)
[2018-04-01] MEDS: DOCUSATE SODIUM 100 MG CAPSULE PO SCH (09:09)
[2018-04-01] MEDS: BENZTROPINE MESYLATE 1 MG TABLET PO SCH ×2 (09:10→16:34)
[2018-04-01] MEDS: CARBIDOPA/LEVODOPA 25-100 MG TABLET PO SCH ×3 (09:10→16:34)
[2018-04-01] MEDS: OMEPRAZOLE 20 MG CAPSULE PO SCH (09:10)
[2018-04-01] MEDS: LORazepam 2 MG TABLET PO PRN ×2 (13:00→20:19)
[2018-04-01 16:15] VITALS: BP 121/73
[2018-04-01] MEDS: OLANZapine 10 MG TABLET PO SCH (20:19)
[2018-04-02] MEDS: IBUPROFEN 600 MG TABLET PO PRN (02:05)
[2018-04-02 02:16] VITALS: BP 100/63
[2018-04-02] MEDS: CARBIDOPA/LEVODOPA 25-100 MG TABLET PO SCH ×3 (08:57→16:44)
[2018-04-02] MEDS: OMEPRAZOLE 20 MG CAPSULE PO SCH (08:58)
[2018-04-02] MEDS: BENZTROPINE MESYLATE 1 MG TABLET PO SCH ×2 (08:58→16:44)
[2018-04-02] MEDS: DIVALPROEX SODIUM 250 MG DR TABLET PO SCH (08:58)
[2018-04-02] MEDS: DOCUSATE SODIUM 100 MG CAPSULE PO SCH (08:58)
[2018-04-02] MEDS: LORazepam 2 MG TABLET PO PRN ×2 (12:29→20:01)
[2018-04-02 13:04] VITALS: BP 121/75
[2018-04-02 16:22] VITALS: BP 123/78
[2018-04-02] MEDS: OLANZapine 10 MG TABLET PO SCH (20:01)
[2018-04-02] MEDS: ZOLPIDEM TARTRATE 10 MG TABLET PO PRN (22:03)
[2018-04-03] VITALS (11 sets, daily range): BP systolic 116–135; BP diastolic 71–87
[2018-04-03] MEDS: DOCUSATE SODIUM 100 MG CAPSULE PO SCH (09:50)
[2018-04-03] MEDS: BENZTROPINE MESYLATE 1 MG TABLET PO SCH ×2 (09:50→17:02)
[2018-04-03] MEDS: CARBIDOPA/LEVODOPA 25-100 MG TABLET PO SCH ×3 (09:50→17:02)
[2018-04-03] MEDS: OMEPRAZOLE 20 MG CAPSULE PO SCH (09:50)
[2018-04-03] MEDS: DIVALPROEX SODIUM 250 MG DR TABLET PO SCH (09:50)
[2018-04-03] MEDS: LORazepam 2 MG TABLET PO PRN ×2 (14:13→20:16)
[2018-04-03] MEDS: OLANZapine 10 MG TABLET PO SCH (20:36)
[2018-04-04] VITALS (10 sets, daily range): BP systolic 106–132; BP diastolic 68–85
[2018-04-04] MEDS: ZOLPIDEM TARTRATE 10 MG TABLET PO PRN ×2 (01:25→22:27)
[2018-04-04] MEDS: DOCUSATE SODIUM 100 MG CAPSULE PO SCH (08:30)
[2018-04-04] MEDS: DIVALPROEX SODIUM 250 MG DR TABLET PO SCH (08:30)
[2018-04-04] MEDS: OMEPRAZOLE 20 MG CAPSULE PO SCH (08:30)
[2018-04-04] MEDS: CARBIDOPA/LEVODOPA 25-100 MG TABLET PO SCH ×3 (08:30→16:23)
[2018-04-04] MEDS: BENZTROPINE MESYLATE 1 MG TABLET PO SCH ×2 (08:30→16:23)
[2018-04-04] MEDS: LORazepam 2 MG TABLET PO PRN (20:20)
[2018-04-04] MEDS: OLANZapine 10 MG TABLET PO SCH (20:20)
[2018-04-05] MEDS: LORazepam 2 MG TABLET PO PRN ×3 (04:07→20:25)
[2018-04-05 07:21] VITALS: BP 127/74
[2018-04-05 07:23] VITALS: BP 127/74
[2018-04-05] MEDS: BENZTROPINE MESYLATE 1 MG TABLET PO SCH ×2 (08:12→16:32)
[2018-04-05] MEDS: OMEPRAZOLE 20 MG CAPSULE PO SCH (08:12)
[2018-04-05] MEDS: DOCUSATE SODIUM 100 MG CAPSULE PO SCH (08:12)
[2018-04-05] MEDS: CARBIDOPA/LEVODOPA 25-100 MG TABLET PO SCH ×3 (08:12→16:32)
[2018-04-05] MEDS: DIVALPROEX SODIUM 250 MG DR TABLET PO SCH (08:12)
[2018-04-05 08:29] VITALS: BP 129/88
[2018-04-05 08:32] LABS: HEMATOCRIT 39.1 % (41-53); HEMOGLOBIN 13.7 g/dL (13.5-17.5); MEAN CORPUSCULAR HEMOGLOBIN 30.5 pg (26.0-34.0); MEAN CORPUSCULAR HGB CONC 35.1 G/dL (31.0-37.0); MEAN CORPUSCULAR VOLUME 87 fL (80-100); PLATELET COUNT (AUTO) 285 K/uL (150-450); RED CELL DISTRIBUTION WIDTH 12.6 % (11.5-14.5)
[2018-04-05 08:50] LABS: ANION GAP 2 mmol/L (8-16); CALCIUM, TOTAL 9.2 mg/dL (8.8-10.5); CARBON DIOXIDE 36 mmol/L (22-29); CHLORIDE 102 mmol/L (98-107); CHOL/HDL RATIO 2.5 (4.2-7.3); CHOLESTEROL 140 mg/dL (131-200); CREATININE 0.87 mg/dL (0.60-1.30); GLOMERULAR FILTR. RATE CALC > 60 mL/min (>60); GLUCOSE,RANDOM 91 mg/dL (70-110); HDL CHOLESTEROL 55 mg/dL (40-60); LDL CHOL (CALC.) 76 mg/dL (0-130); PHOSPHORUS 3.8 mg/dL (2.5-4.9); POTASSIUM 4.3 mmol/L (3.5-5.1); SODIUM SERUM 140 mmol/L (136-145); THYROID STIMULATING HORMONE 2.35 uIU/mL (0.36-3.74); TRIGLYCERIDES 43 mg/dL (15-150); UREA NITROGEN, BLOOD 13 mg/dL (7-18)
[2018-04-05 09:26] LABS: BAND NEUTROPHILS % (MANUAL) 1 % (0-5); EOSINOPHILS % (MANUAL) 1 % (1-6); LYMPHOCYTES % (MANUAL) 29 % (22-44); MONOCYTES % (MANUAL) 8 % (2-9); SEGMENTED NEUTROPHILS % 61 % (40-70)
[2018-04-05 16:02] VITALS: BP 120/74
[2018-04-05] MEDS: OLANZapine 10 MG TABLET PO SCH (20:20)
[2018-04-05] MEDS: ZOLPIDEM TARTRATE 10 MG TABLET PO PRN (21:58)
[2018-04-06 07:13] VITALS: BP 108/71
[2018-04-06 08:36] VITALS: BP 110/70
[2018-04-06] MEDS: CARBIDOPA/LEVODOPA 25-100 MG TABLET PO SCH ×3 (08:46→16:34)
[2018-04-06] MEDS: DOCUSATE SODIUM 100 MG CAPSULE PO SCH (08:46)
[2018-04-06] MEDS: BENZTROPINE MESYLATE 1 MG TABLET PO SCH ×2 (08:46→16:35)
[2018-04-06] MEDS: OMEPRAZOLE 20 MG CAPSULE PO SCH (08:46)
[2018-04-06] MEDS: DIVALPROEX SODIUM 250 MG DR TABLET PO SCH (08:46)
[2018-04-06] MEDS: LORazepam 2 MG TABLET PO PRN ×2 (12:04→20:43)
[2018-04-06 18:10] VITALS: BP 122/78
[2018-04-06] MEDS: OLANZapine 10 MG TABLET PO SCH (20:31)
[2018-04-06] MEDS: ZOLPIDEM TARTRATE 10 MG TABLET PO PRN (22:04)
[2018-04-07 06:54] VITALS: BP 124/82
[2018-04-07 08:11] VITALS: BP 111/71
[2018-04-07] MEDS: OMEPRAZOLE 20 MG CAPSULE PO SCH (09:16)
[2018-04-07] MEDS: CARBIDOPA/LEVODOPA 25-100 MG TABLET PO SCH ×3 (09:16→16:27)
[2018-04-07] MEDS: BENZTROPINE MESYLATE 1 MG TABLET PO SCH ×2 (09:17→16:27)
[2018-04-07] MEDS: DIVALPROEX SODIUM 250 MG DR TABLET PO SCH (09:17)
[2018-04-07] MEDS: DOCUSATE SODIUM 100 MG CAPSULE PO SCH (09:17)
[2018-04-07] MEDS: LORazepam 2 MG TABLET PO PRN ×2 (16:05→20:34)
[2018-04-07 16:16] VITALS: BP 121/84
[2018-04-07] MEDS: OLANZapine 10 MG TABLET PO SCH (20:34)
[2018-04-07] MEDS: ZOLPIDEM TARTRATE 10 MG TABLET PO PRN (22:02)
[2018-04-08 00:27] VITALS: BP 125/77
[2018-04-08] MEDS: LORazepam 2 MG TABLET PO PRN ×4 (03:00→21:15)
[2018-04-08] MEDS: BENZTROPINE MESYLATE 1 MG TABLET PO SCH ×2 (08:26→16:13)
[2018-04-08] MEDS: DOCUSATE SODIUM 100 MG CAPSULE PO SCH (08:26)
[2018-04-08] MEDS: OMEPRAZOLE 20 MG CAPSULE PO SCH (08:26)
[2018-04-08] MEDS: CARBIDOPA/LEVODOPA 25-100 MG TABLET PO SCH ×3 (08:26→16:13)
[2018-04-08] MEDS: DIVALPROEX SODIUM 250 MG DR TABLET PO SCH (08:26)
[2018-04-08 09:06] VITALS: BP_SYST 118
[2018-04-08 16:24] VITALS: BP 123/66
[2018-04-08] MEDS: OLANZapine 10 MG TABLET PO SCH (20:16)
[2018-04-08] MEDS: ZOLPIDEM TARTRATE 10 MG TABLET PO PRN (22:08)
[2018-04-09 06:22] VITALS: BP 135/85
[2018-04-09 08:28] VITALS: BP 129/85
[2018-04-09] MEDS: CARBIDOPA/LEVODOPA 25-100 MG TABLET PO SCH ×3 (08:40→16:56)
[2018-04-09] MEDS: DIVALPROEX SODIUM 250 MG DR TABLET PO SCH (08:40)
[2018-04-09] MEDS: OMEPRAZOLE 20 MG CAPSULE PO SCH (08:40)
[2018-04-09] MEDS: BENZTROPINE MESYLATE 1 MG TABLET PO SCH ×2 (08:40→16:56)
[2018-04-09] MEDS: DOCUSATE SODIUM 100 MG CAPSULE PO SCH (08:40)
[2018-04-09] MEDS: LORazepam 2 MG TABLET PO PRN ×2 (12:23→20:02)
[2018-04-09 16:22] VITALS: BP 109/71
[2018-04-09] MEDS: OLANZapine 10 MG TABLET PO SCH (20:02)
[2018-04-09] MEDS: ZOLPIDEM TARTRATE 10 MG TABLET PO PRN (22:12)
[2018-04-10] MEDS: OMEPRAZOLE 20 MG CAPSULE PO SCH (08:47)
[2018-04-10] MEDS: CARBIDOPA/LEVODOPA 25-100 MG TABLET PO SCH ×3 (08:47→16:13)
[2018-04-10] MEDS: DIVALPROEX SODIUM 250 MG DR TABLET PO SCH (08:47)
[2018-04-10] MEDS: DOCUSATE SODIUM 100 MG CAPSULE PO SCH (08:47)
[2018-04-10] MEDS: BENZTROPINE MESYLATE 1 MG TABLET PO SCH ×2 (08:47→16:13)
[2018-04-10 11:20] VITALS: BP 101/73
[2018-04-10] MEDS: LORazepam 2 MG TABLET PO PRN ×2 (12:29→19:05)
[2018-04-10 16:14] VITALS: BP 139/84
[2018-04-10] MEDS: OLANZapine 10 MG TABLET PO SCH (20:20)
[2018-04-10] MEDS: ZOLPIDEM TARTRATE 10 MG TABLET PO PRN (22:06)
[2018-04-11 02:30] VITALS: BP 132/86
[2018-04-11] MEDS: LORazepam 2 MG TABLET PO PRN ×3 (02:38→18:09)
[2018-04-11 08:48] VITALS: BP 114/80
[2018-04-11] MEDS: OMEPRAZOLE 20 MG CAPSULE PO SCH (08:57)
[2018-04-11] MEDS: DIVALPROEX SODIUM 250 MG DR TABLET PO SCH (08:57)
[2018-04-11] MEDS: BENZTROPINE MESYLATE 1 MG TABLET PO SCH ×2 (08:57→16:38)
[2018-04-11] MEDS: DOCUSATE SODIUM 100 MG CAPSULE PO SCH (08:57)
[2018-04-11] MEDS: CARBIDOPA/LEVODOPA 25-100 MG TABLET PO SCH ×3 (08:57→16:38)
[2018-04-11 16:14] VITALS: BP 113/76
[2018-04-11] MEDS: OLANZapine 10 MG TABLET PO SCH (20:32)
[2018-04-11] MEDS: ZOLPIDEM TARTRATE 10 MG TABLET PO PRN (21:35)
[2018-04-12 00:50] VITALS: BP 110/72
[2018-04-12 08:18] VITALS: BP 109/81
[2018-04-12] MEDS: DOCUSATE SODIUM 100 MG CAPSULE PO SCH (08:30)
[2018-04-12] MEDS: BENZTROPINE MESYLATE 1 MG TABLET PO SCH ×2 (08:30→17:05)
[2018-04-12] MEDS: CARBIDOPA/LEVODOPA 25-100 MG TABLET PO SCH ×3 (08:30→17:05)
[2018-04-12] MEDS: DIVALPROEX SODIUM 250 MG DR TABLET PO SCH (08:31)
[2018-04-12] MEDS: OMEPRAZOLE 20 MG CAPSULE PO SCH (08:31)
[2018-04-12] MEDS: LORazepam 2 MG TABLET PO PRN ×2 (12:43→21:24)
[2018-04-12 16:22] VITALS: BP 120/76
[2018-04-12] MEDS: OLANZapine 10 MG TABLET PO SCH (21:13)
[2018-04-12] MEDS: ZOLPIDEM TARTRATE 10 MG TABLET PO PRN (21:15)
[2018-04-13 01:55] VITALS: BP 118/76
[2018-04-13] MEDS: LORazepam 2 MG TABLET PO PRN ×3 (02:00→17:10)
[2018-04-13 08:18] VITALS: BP 112/74
[2018-04-13] MEDS: BENZTROPINE MESYLATE 1 MG TABLET PO SCH ×2 (08:43→16:29)
[2018-04-13] MEDS: CARBIDOPA/LEVODOPA 25-100 MG TABLET PO SCH ×3 (08:43→16:29)
[2018-04-13] MEDS: DIVALPROEX SODIUM 250 MG DR TABLET PO SCH (08:43)
[2018-04-13] MEDS: DOCUSATE SODIUM 100 MG CAPSULE PO SCH (08:43)
[2018-04-13] MEDS: OMEPRAZOLE 20 MG CAPSULE PO SCH (08:43)
[2018-04-13 16:09] VITALS: BP 122/74
[2018-04-13] MEDS: OLANZapine 10 MG TABLET PO SCH (20:13)
[2018-04-14 01:12] VITALS: BP 117/74
[2018-04-14] MEDS: DOCUSATE SODIUM 100 MG CAPSULE PO SCH (08:40)
[2018-04-14] MEDS: DIVALPROEX SODIUM 250 MG DR TABLET PO SCH (08:40)
[2018-04-14] MEDS: BENZTROPINE MESYLATE 1 MG TABLET PO SCH ×2 (08:40→16:36)
[2018-04-14] MEDS: OMEPRAZOLE 20 MG CAPSULE PO SCH (08:40)
[2018-04-14] MEDS: CARBIDOPA/LEVODOPA 25-100 MG TABLET PO SCH ×3 (08:40→16:36)
[2018-04-14 09:06] VITALS: BP 106/67
[2018-04-14] MEDS: LORazepam 2 MG TABLET PO PRN ×2 (12:56→20:25)
[2018-04-14 16:10] VITALS: BP 130/85
[2018-04-14] MEDS: OLANZapine 10 MG TABLET PO SCH (20:25)
[2018-04-14] MEDS: ZOLPIDEM TARTRATE 10 MG TABLET PO PRN (21:52)
[2018-04-14] MEDS: MAG HYDROX/AL HYDROX/SIMETH ES 30 ML SUSPENSION UDCUP PO PRN (23:09)
[2018-04-15 02:46] VITALS: BP 124/79
[2018-04-15] MEDS: LORazepam 2 MG TABLET PO PRN ×3 (02:54→17:44)
[2018-04-15] MEDS: DOCUSATE SODIUM 100 MG CAPSULE PO SCH (08:41)
[2018-04-15] MEDS: CARBIDOPA/LEVODOPA 25-100 MG TABLET PO SCH ×3 (08:41→17:17)
[2018-04-15] MEDS: BENZTROPINE MESYLATE 1 MG TABLET PO SCH ×2 (08:41→17:17)
[2018-04-15] MEDS: DIVALPROEX SODIUM 250 MG DR TABLET PO SCH (08:41)
[2018-04-15] MEDS: OMEPRAZOLE 20 MG CAPSULE PO SCH (08:41)
[2018-04-15 08:43] VITALS: BP 128/72
[2018-04-15 16:17] VITALS: BP 105/69
[2018-04-15] MEDS: OLANZapine 10 MG TABLET PO SCH (20:59)
[2018-04-15] MEDS: ZOLPIDEM TARTRATE 10 MG TABLET PO PRN (21:47)
[2018-04-16] VITALS (10 sets, daily range): BP systolic 116–139; BP diastolic 62–82
[2018-04-16] MEDS: BENZTROPINE MESYLATE 1 MG TABLET PO SCH ×2 (08:34→16:48)
[2018-04-16] MEDS: DIVALPROEX SODIUM 250 MG DR TABLET PO SCH (08:34)
[2018-04-16] MEDS: CARBIDOPA/LEVODOPA 25-100 MG TABLET PO SCH ×3 (08:34→16:48)
[2018-04-16] MEDS: DOCUSATE SODIUM 100 MG CAPSULE PO SCH (08:34)
[2018-04-16] MEDS: OMEPRAZOLE 20 MG CAPSULE PO SCH (08:34)
[2018-04-16] MEDS: HALOPERIDOL 5 MG TABLET PO PRN (13:37)
[2018-04-16] MEDS: OLANZapine 10 MG TABLET PO SCH (20:28)
[2018-04-16] MEDS: LORazepam 2 MG TABLET PO PRN (20:30)
[2018-04-16] MEDS: ZOLPIDEM TARTRATE 10 MG TABLET PO PRN (21:09)
[2018-04-17] MEDS: LORazepam 2 MG TABLET PO PRN ×2 (03:41→20:22)
[2018-04-17 03:59] VITALS: BP 132/72
[2018-04-17 05:02] VITALS: BP 121/68
[2018-04-17 08:17] VITALS: BP 112/66
[2018-04-17] MEDS: CARBIDOPA/LEVODOPA 25-100 MG TABLET PO SCH ×3 (08:44→16:48)
[2018-04-17] MEDS: DOCUSATE SODIUM 100 MG CAPSULE PO SCH (08:44)
[2018-04-17] MEDS: BENZTROPINE MESYLATE 1 MG TABLET PO SCH ×2 (08:44→16:49)
[2018-04-17] MEDS: OMEPRAZOLE 20 MG CAPSULE PO SCH (08:44)
[2018-04-17] MEDS: DIVALPROEX SODIUM 250 MG DR TABLET PO SCH (08:44)
[2018-04-17 16:18] VITALS: BP 114/74
[2018-04-17] MEDS: OLANZapine 10 MG TABLET PO SCH (20:22)
[2018-04-18] MEDS: ZOLPIDEM TARTRATE 10 MG TABLET PO PRN (00:03)
[2018-04-18 00:17] VITALS: BP 112/70
[2018-04-18] MEDS: LORazepam 2 MG TABLET PO PRN ×3 (03:12→20:07)
[2018-04-18] MEDS: DIVALPROEX SODIUM 250 MG DR TABLET PO SCH (08:02)
[2018-04-18] MEDS: CARBIDOPA/LEVODOPA 25-100 MG TABLET PO SCH ×3 (08:02→16:36)
[2018-04-18] MEDS: OMEPRAZOLE 20 MG CAPSULE PO SCH (08:02)
[2018-04-18] MEDS: DOCUSATE SODIUM 100 MG CAPSULE PO SCH (08:02)
[2018-04-18] MEDS: BENZTROPINE MESYLATE 1 MG TABLET PO SCH ×2 (08:03→16:36)
[2018-04-18 08:30] VITALS: BP 102/61
[2018-04-18 16:33] VITALS: BP 104/68
[2018-04-18] MEDS: OLANZapine 10 MG TABLET PO SCH (20:31)
[2018-04-19 02:32] VITALS: BP 123/62
[2018-04-19] MEDS: ZOLPIDEM TARTRATE 10 MG TABLET PO PRN ×2 (02:36→21:24)
[2018-04-19 08:30] VITALS: BP 110/75
[2018-04-19] MEDS: DOCUSATE SODIUM 100 MG CAPSULE PO SCH (08:35)
[2018-04-19] MEDS: DIVALPROEX SODIUM 250 MG DR TABLET PO SCH (08:35)
[2018-04-19] MEDS: BENZTROPINE MESYLATE 1 MG TABLET PO SCH ×2 (08:35→16:46)
[2018-04-19] MEDS: CARBIDOPA/LEVODOPA 25-100 MG TABLET PO SCH ×3 (08:35→16:46)
[2018-04-19] MEDS: OMEPRAZOLE 20 MG CAPSULE PO SCH (08:35)
[2018-04-19] MEDS: LORazepam 2 MG TABLET PO PRN ×2 (12:57→20:03)
[2018-04-19] MEDS ORDERED: OMEP20 PO (14:51)
[2018-04-19 16:10] VITALS: BP 121/72
[2018-04-19] MEDS: OLANZapine 10 MG TABLET PO SCH (20:03)
[2018-04-20] MEDS: LORazepam 2 MG TABLET PO PRN ×3 (00:16→20:36)
[2018-04-20 00:17] VITALS: BP 115/79
[2018-04-20 08:15] VITALS: BP 110/70
[2018-04-20] MEDS: DOCUSATE SODIUM 100 MG CAPSULE PO SCH (08:44)
[2018-04-20] MEDS: DIVALPROEX SODIUM 250 MG DR TABLET PO SCH (08:44)
[2018-04-20] MEDS: CARBIDOPA/LEVODOPA 25-100 MG TABLET PO SCH ×3 (08:45→16:32)
[2018-04-20] MEDS: BENZTROPINE MESYLATE 1 MG TABLET PO SCH ×2 (08:45→16:32)
[2018-04-20] MEDS: OMEPRAZOLE 20 MG CAPSULE PO SCH (08:45)
[2018-04-20 16:16] VITALS: BP 120/73
[2018-04-20] MEDS: OLANZapine 10 MG TABLET PO SCH (20:36)
[2018-04-20] MEDS: ZOLPIDEM TARTRATE 10 MG TABLET PO PRN (23:57)
[2018-04-21 00:03] VITALS: BP 118/68
[2018-04-21] MEDS: LORazepam 2 MG TABLET PO PRN (04:02)
[2018-04-21] MEDS: DOCUSATE SODIUM 100 MG CAPSULE PO SCH (08:05)
[2018-04-21] MEDS: CARBIDOPA/LEVODOPA 25-100 MG TABLET PO SCH ×3 (08:05→16:30)
[2018-04-21] MEDS: OMEPRAZOLE 20 MG CAPSULE PO SCH (08:05)
[2018-04-21] MEDS: DIVALPROEX SODIUM 250 MG DR TABLET PO SCH (08:05)
[2018-04-21] MEDS: BENZTROPINE MESYLATE 1 MG TABLET PO SCH ×2 (08:05→16:30)
[2018-04-21 08:38] VITALS: BP 123/70
[2018-04-21] MEDS: LORazepam 1 MG TABLET PO PRN ×2 (12:54→20:36)
[2018-04-21 16:09] VITALS: BP 116/70
[2018-04-21] MEDS: OLANZapine 10 MG TABLET PO SCH (20:36)
[2018-04-21] MEDS: ZOLPIDEM TARTRATE 10 MG TABLET PO PRN (23:22)
[2018-04-22 01:28] VITALS: BP 114/74
[2018-04-22] MEDS: OMEPRAZOLE 20 MG CAPSULE PO SCH (08:17)
[2018-04-22] MEDS: DIVALPROEX SODIUM 250 MG DR TABLET PO SCH (08:17)
[2018-04-22] MEDS: DOCUSATE SODIUM 100 MG CAPSULE PO SCH (08:17)
[2018-04-22] MEDS: BENZTROPINE MESYLATE 1 MG TABLET PO SCH ×2 (08:17→16:22)
[2018-04-22] MEDS: CARBIDOPA/LEVODOPA 25-100 MG TABLET PO SCH ×3 (08:17→16:22)
[2018-04-22 08:45] VITALS: BP 136/74
[2018-04-22] MEDS: LORazepam 1 MG TABLET PO PRN (14:20)
[2018-04-22 16:40] VITALS: BP 127/96
[2018-04-22] MEDS: HALOPERIDOL 5 MG TABLET PO PRN (17:17)
[2018-04-22] MEDS: OLANZapine 10 MG TABLET PO SCH (20:09)
[2018-04-22] MEDS: ZOLPIDEM TARTRATE 10 MG TABLET PO PRN (21:17)
[2018-04-23 01:10] VITALS: BP 126/75
[2018-04-23 06:50] VITALS: BP 122/76
[2018-04-23] MEDS: LORazepam 1 MG TABLET PO PRN ×2 (06:56→20:26)
[2018-04-23 08:22] VITALS: BP 140/75
[2018-04-23] MEDS: BENZTROPINE MESYLATE 1 MG TABLET PO SCH ×2 (08:35→16:43)
[2018-04-23] MEDS: DIVALPROEX SODIUM 250 MG DR TABLET PO SCH (08:35)
[2018-04-23] MEDS: CARBIDOPA/LEVODOPA 25-100 MG TABLET PO SCH ×3 (08:35→16:43)
[2018-04-23] MEDS: OMEPRAZOLE 20 MG CAPSULE PO SCH (08:35)
[2018-04-23] MEDS: DOCUSATE SODIUM 100 MG CAPSULE PO SCH (08:35)
[2018-04-23 17:39] VITALS: BP 133/78
[2018-04-23] MEDS: OLANZapine 10 MG TABLET PO SCH (20:25)
[2018-04-24 01:10] VITALS: BP 133/81
[2018-04-24] MEDS: ZOLPIDEM TARTRATE 10 MG TABLET PO PRN ×2 (01:10→21:02)
[2018-04-24 08:21] VITALS: BP 130/77
[2018-04-24] MEDS: DOCUSATE SODIUM 100 MG CAPSULE PO SCH (08:36)
[2018-04-24] MEDS: OMEPRAZOLE 20 MG CAPSULE PO SCH (08:36)
[2018-04-24] MEDS: BENZTROPINE MESYLATE 1 MG TABLET PO SCH ×2 (08:36→16:38)
[2018-04-24] MEDS: CARBIDOPA/LEVODOPA 25-100 MG TABLET PO SCH ×3 (08:36→16:38)
[2018-04-24] MEDS: DIVALPROEX SODIUM 250 MG DR TABLET PO SCH (08:37)
[2018-04-24] MEDS: LORazepam 1 MG TABLET PO PRN (13:50)
[2018-04-24 16:18] VITALS: BP 140/84
[2018-04-24] MEDS: OLANZapine 10 MG TABLET PO SCH (20:33)
[2018-04-25] MEDS: LORazepam 1 MG TABLET PO PRN ×2 (03:18→19:24)
[2018-04-25 03:24] VITALS: BP 125/76
[2018-04-25 08:40] VITALS: BP 116/72
[2018-04-25] MEDS: DIVALPROEX SODIUM 250 MG DR TABLET PO SCH (11:13)
[2018-04-25] MEDS: CARBIDOPA/LEVODOPA 25-100 MG TABLET PO SCH ×3 (11:14→16:38)
[2018-04-25] MEDS: BENZTROPINE MESYLATE 1 MG TABLET PO SCH ×2 (11:14→16:38)
[2018-04-25] MEDS: OMEPRAZOLE 20 MG CAPSULE PO SCH (11:14)
[2018-04-25] MEDS: DOCUSATE SODIUM 100 MG CAPSULE PO SCH (11:14)
[2018-04-25 16:14] VITALS: BP 101/68
[2018-04-25 19:48] VITALS: BP 123/77
[2018-04-25] MEDS: OLANZapine 10 MG TABLET PO SCH (20:32)
[2018-04-25] MEDS: ZOLPIDEM TARTRATE 10 MG TABLET PO PRN (22:01)
[2018-04-26 06:00] VITALS: BP 110/72
[2018-04-26] MEDS: DIVALPROEX SODIUM 250 MG DR TABLET PO SCH (08:38)
[2018-04-26] MEDS: DOCUSATE SODIUM 100 MG CAPSULE PO SCH (08:38)
[2018-04-26] MEDS: CARBIDOPA/LEVODOPA 25-100 MG TABLET PO SCH ×3 (08:38→16:38)
[2018-04-26] MEDS: BENZTROPINE MESYLATE 1 MG TABLET PO SCH ×2 (08:38→16:39)
[2018-04-26] MEDS: OMEPRAZOLE 20 MG CAPSULE PO SCH (08:38)
[2018-04-26 09:00] VITALS: BP 118/72
[2018-04-26] MEDS: HALOPERIDOL 5 MG TABLET PO PRN (16:38)
[2018-04-26 16:49] VITALS: BP 114/82
[2018-04-26] MEDS: LORazepam 1 MG TABLET PO PRN (19:50)
[2018-04-26 19:55] VITALS: BP 118/77
[2018-04-26] MEDS: IBUPROFEN 600 MG TABLET PO PRN (20:06)
[2018-04-26] MEDS: OLANZapine 10 MG TABLET PO SCH (20:40)
[2018-04-26] MEDS: ZOLPIDEM TARTRATE 10 MG TABLET PO PRN (21:32)
[2018-04-27 01:37] VITALS: BP 121/68
[2018-04-27] MEDS: DOCUSATE SODIUM 100 MG CAPSULE PO SCH (08:02)
[2018-04-27] MEDS: CARBIDOPA/LEVODOPA 25-100 MG TABLET PO SCH ×3 (08:02→16:36)
[2018-04-27] MEDS: OMEPRAZOLE 20 MG CAPSULE PO SCH (08:02)
[2018-04-27] MEDS: DIVALPROEX SODIUM 250 MG DR TABLET PO SCH (08:02)
[2018-04-27] MEDS: BENZTROPINE MESYLATE 1 MG TABLET PO SCH ×2 (08:02→16:36)
[2018-04-27 08:13] VITALS: BP 132/86
[2018-04-27 08:21] LABS: BAND NEUTROPHILS % (MANUAL) 0 % (0-5)
[2018-04-27 08:42] LABS: HEMATOCRIT 42.9 % (41-53); HEMOGLOBIN 14.7 g/dL (13.5-17.5); MEAN CORPUSCULAR HEMOGLOBIN 28.9 pg (26.0-34.0); MEAN CORPUSCULAR HGB CONC 34.1 G/dL (31.0-37.0); MEAN CORPUSCULAR VOLUME 85 fL (80-100); PLATELET COUNT (AUTO) 307 K/uL (150-450); RED BLOOD CELL COUNT(AUTO) 5.06 MIL/uL (4.50-5.90); RED CELL DISTRIBUTION WIDTH 12.7 % (11.5-14.5)
[2018-04-27 09:16] LABS: ANION GAP 6 mmol/L (8-16); CALCIUM, TOTAL 9.5 mg/dL (8.8-10.5); CARBON DIOXIDE 30 mmol/L (22-29); CHLORIDE 102 mmol/L (98-107); CHOL/HDL RATIO 3.1 (4.2-7.3); CHOLESTEROL 166 mg/dL (131-200); CREATININE 0.82 mg/dL (0.60-1.30); GLOMERULAR FILTR. RATE CALC > 60 mL/min (>60); GLUCOSE,RANDOM 97 mg/dL (70-110); HDL CHOLESTEROL 54 mg/dL (40-60); LDL CHOL (CALC.) 100 mg/dL (0-130); PHOSPHORUS 3.8 mg/dL (2.5-4.9); POTASSIUM 3.8 mmol/L (3.5-5.1); SODIUM SERUM 138 mmol/L (136-145); THYROID STIMULATING HORMONE 3.06 uIU/mL (0.36-3.74); TRIGLYCERIDES 61 mg/dL (15-150); UREA NITROGEN, BLOOD 17 mg/dL (7-18)
[2018-04-27] MEDS: LORazepam 1 MG TABLET PO PRN ×2 (09:22→23:07)
[2018-04-27 10:12] LABS: EOSINOPHILS % (MANUAL) 2 % (1-6); LYMPHOCYTES % (MANUAL) 37 % (22-44); MONOCYTES % (MANUAL) 12 % (2-9); SEGMENTED NEUTROPHILS % 49 % (40-70)
[2018-04-27] MEDS: HALOPERIDOL 5 MG TABLET PO PRN (16:36)
[2018-04-27 16:47] VITALS: BP 124/92
[2018-04-27] MEDS: OLANZapine 10 MG TABLET PO SCH (21:03)
[2018-04-27] MEDS: ZOLPIDEM TARTRATE 10 MG TABLET PO PRN (21:34)
[2018-04-28] VITALS: BP 107/64
[2018-04-28] MEDS: HALOPERIDOL 5 MG TABLET PO PRN (00:10)
[2018-04-28 08:11] VITALS: BP 122/68
[2018-04-28] MEDS: DIVALPROEX SODIUM 250 MG DR TABLET PO SCH (08:49)
[2018-04-28] MEDS: DOCUSATE SODIUM 100 MG CAPSULE PO SCH (08:50)
[2018-04-28] MEDS: CARBIDOPA/LEVODOPA 25-100 MG TABLET PO SCH ×3 (08:50→16:53)
[2018-04-28] MEDS: OMEPRAZOLE 20 MG CAPSULE PO SCH (08:50)
[2018-04-28] MEDS: BENZTROPINE MESYLATE 1 MG TABLET PO SCH ×2 (08:50→16:53)
[2018-04-28] MEDS: LORazepam 1 MG TABLET PO PRN (12:22)
[2018-04-28 18:28] VITALS: BP 109/68
[2018-04-28] MEDS: OLANZapine 10 MG TABLET PO SCH (20:35)
[2018-04-28] MEDS: ZOLPIDEM TARTRATE 10 MG TABLET PO PRN (22:13)
[2018-04-29] MEDS: LORazepam 1 MG TABLET PO PRN ×2 (04:43→20:36)
[2018-04-29 06:00] VITALS: BP 118/71
[2018-04-29 08:47] VITALS: BP 120/76
[2018-04-29] MEDS: CARBIDOPA/LEVODOPA 25-100 MG TABLET PO SCH ×3 (09:08→16:35)
[2018-04-29] MEDS: DOCUSATE SODIUM 100 MG CAPSULE PO SCH (09:08)
[2018-04-29] MEDS: OMEPRAZOLE 20 MG CAPSULE PO SCH (09:08)
[2018-04-29] MEDS: DIVALPROEX SODIUM 250 MG DR TABLET PO SCH (09:08)
[2018-04-29] MEDS: BENZTROPINE MESYLATE 1 MG TABLET PO SCH ×2 (09:08→16:35)
[2018-04-29 16:10] VITALS: BP 103/71
[2018-04-29] MEDS: OLANZapine 10 MG TABLET PO SCH (20:36)
[2018-04-29] MEDS: ZOLPIDEM TARTRATE 10 MG TABLET PO PRN (21:52)
[2018-04-30 04:20] VITALS: BP 137/74
[2018-04-30] MEDS: HALOPERIDOL 5 MG TABLET PO PRN (04:29)
[2018-04-30] MEDS: CARBIDOPA/LEVODOPA 25-100 MG TABLET PO SCH ×3 (08:57→16:54)
[2018-04-30] MEDS: DOCUSATE SODIUM 100 MG CAPSULE PO SCH (08:57)
[2018-04-30] MEDS: BENZTROPINE MESYLATE 1 MG TABLET PO SCH ×2 (08:57→16:54)
[2018-04-30] MEDS: OMEPRAZOLE 20 MG CAPSULE PO SCH (08:57)
[2018-04-30] MEDS: DIVALPROEX SODIUM 250 MG DR TABLET PO SCH (08:57)
[2018-04-30 09:12] VITALS: BP 120/75
[2018-04-30] MEDS: LORazepam 1 MG TABLET PO PRN (13:12)
[2018-04-30 16:22] VITALS: BP 119/69
[2018-04-30] MEDS: OLANZapine 10 MG TABLET PO SCH (20:35)
[2018-04-30] MEDS: ZOLPIDEM TARTRATE 10 MG TABLET PO PRN (21:47)
[2018-05-01] VITALS: BP 116/76
[2018-05-01] MEDS: CARBIDOPA/LEVODOPA 25-100 MG TABLET PO SCH ×3 (08:24→16:45)
[2018-05-01] MEDS: DOCUSATE SODIUM 100 MG CAPSULE PO SCH (08:24)
[2018-05-01] MEDS: DIVALPROEX SODIUM 250 MG DR TABLET PO SCH (08:24)
[2018-05-01] MEDS: OMEPRAZOLE 20 MG CAPSULE PO SCH (08:24)
[2018-05-01] MEDS: BENZTROPINE MESYLATE 1 MG TABLET PO SCH ×2 (08:24→16:45)
[2018-05-01] MEDS: LORazepam 1 MG TABLET PO PRN (12:14)
[2018-05-01] MEDS: OLANZapine 10 MG TABLET PO SCH (20:46)
[2018-05-01] MEDS: ZOLPIDEM TARTRATE 10 MG TABLET PO PRN (22:04)
[2018-05-02 05:55] VITALS: BP 115/74
[2018-05-02] MEDS: DIVALPROEX SODIUM 250 MG DR TABLET PO SCH (08:25)
[2018-05-02] MEDS: DOCUSATE SODIUM 100 MG CAPSULE PO SCH (08:26)
[2018-05-02] MEDS: CARBIDOPA/LEVODOPA 25-100 MG TABLET PO SCH ×2 (08:26→13:01)
[2018-05-02] MEDS: BENZTROPINE MESYLATE 1 MG TABLET PO SCH (08:26)
[2018-05-02] MEDS: OMEPRAZOLE 20 MG CAPSULE PO SCH (08:26)
[2018-05-02 08:45] VITALS: BP 128/75
[2018-05-02] MEDS ORDERED: DSS100 PO (10:55)
== END 2018-05-02 15:16 | disposition home or self-care (01) | DRG 885 ==
LOC: B2X 20:48 → EDSTATUS 20:55
PROVIDERS: ADMIT Psychiatry & Neurology Child & Adolescent Psychiatry; ATTEND Psychiatry & Neurology Psychiatry
DX: F20.0 Paranoid schizophrenia (principal); R45.851 Suicidal ideations; F17.200 Nicotine dependence, unspecified, uncomplicated; F41.9 Anxiety disorder, unspecified; G20 Parkinson's disease; G47.00 Insomnia, unspecified; I10 Essential (primary) hypertension; J44.9 Chronic obstructive pulmonary disease, unspecified; K21.9 Gastro-esophageal reflux disease without esophagitis; K59.00 Constipation, unspecified; Z81.8 Family history of other mental and behavioral disorders; Z91.19 Patient's noncompliance with other medical treatment and regimen; Z79.899 Other long term (current) drug therapy; Z28.21 Immunization not carried out because of patient refusal
CPT/HCPCS: 83036; 83735; 84100; 84439; 84443; 85007; 87081; 97110; 97163

== ENCOUNTER 2021-06-04 21:26 | Emergency (ER) | payer MEDICARE, MEDICAID ==
[~2021-06-04] VITALS: Ht 170.2 cm; Wt 77.3 kg
[~2021-06-04 21:26] MED LIST changes: -BENZ1TAB10 PO; +BENZ1TAB96 PO; +CARB-98 PO; +DIVA-111 PO; -DIVA-76 PO; +DSS100 PO; -OLAN10TA3 PO; +OLAN10TA74 PO; +OMEP20 PO; -SINE25100 PO
[2021-06-04] MEDS ORDERED: LORazepam 1 MG TABLET PO ONE ×2 (22:30→23:30)
[2021-06-04] MEDS ORDERED: OLANZapine 5 MG TABLET PO ONE (22:30)
[2021-06-04 22:56] LABS: AMPHET/METH SCREEN,URINE NEGATIVE (NEGATIVE); BARBITURATE SCREEN, URINE NEGATIVE (NEGATIVE); BENZODIAZEPINES SCREEN,URINE NEGATIVE (NEGATIVE); CANNABINOID SCREEN,URINE NEGATIVE (NEGATIVE); COCAINE SCREEN,URINE NEGATIVE (NEGATIVE); METHADONE SCREEN, URINE NEGATIVE (NEGATIVE); OPIATE SCREEN,URINE NEGATIVE (NEGATIVE)
[2021-06-04 22:59] LABS: PHENCYCLIDINE SCREEN,URINE NEGATIVE (NEGATIVE)
[2021-06-04] MEDS ORDERED: DiphenhydrAMINE HCL 25 MG CAPSULE PO ONE (23:30)
[2021-06-05 00:50] VITALS: BP 124/72
== END 2021-06-05 00:30 ==
LOC: EMS 21:35
DX: F20.9 Schizophrenia, unspecified (principal); F41.9 Anxiety disorder, unspecified; G20 Parkinson's disease
CPT/HCPCS: 99284; 99285

== ENCOUNTER 2022-04-06 14:27 | Inpatient (IN) | payer MEDICARE, MEDICAID ==
[~2022-04-06] VITALS: Ht 167.6 cm; Wt 74.2 kg
[~2022-04-06 14:27] MED LIST changes: -CARB-98 PO; +CARB1TAB36 PO
[2022-04-06 15:52] LABS: BASOPHILS % (AUTO) 0.5 % (0.0-2.0); EOSINOPHILS % (AUTO) 2.8 % (1.0-6.0); HEMATOCRIT 44.3 % (41-53); HEMOGLOBIN 14.9 g/dL (13.5-17.5); LYMPHOCYTES # (AUTO) 1.7 K/uL (1.0-4.8); LYMPHOCYTES % (AUTO) 19.7 % (22.0-44.0); MEAN CORPUSCULAR HEMOGLOBIN 30.5 pg (26.0-34.0); MEAN CORPUSCULAR HGB CONC 33.6 G/dL (31.0-37.0); MEAN CORPUSCULAR VOLUME 91 fL (80-100); MONOCYTES # (AUTO) 0.7 K/uL (0.1-1.0); MONOCYTES % (AUTO) 8.3 % (2.0-9.0); NEUTROPHILS # (AUTO) 5.9 K/uL (1.8-7.7); NEUTROPHILS % (AUTO) 68.7 % (40.0-70.0); PLATELET COUNT (AUTO) 255 K/uL (150-450); RED BLOOD CELL COUNT(AUTO) 4.88 MIL/uL (4.50-5.90); RED CELL DISTRIBUTION WIDTH 13.2 % (11.5-14.5)
[2022-04-06 15:57] LABS: ANION GAP 7 mmol/L (8-16); CALCIUM, TOTAL 9.4 mg/dL (8.8-10.5); CARBON DIOXIDE 30 mmol/L (22-29); CHLORIDE 103 mmol/L (98-107); CREATININE 0.94 mg/dL (0.60-1.30); GLOMERULAR FILTR. RATE CALC > 60 mL/min (>60); GLUCOSE,RANDOM 115 mg/dL (70-110); POTASSIUM 4.2 mmol/L (3.5-5.1); SODIUM SERUM 140 mmol/L (136-145); UREA NITROGEN, BLOOD 16 mg/dL (7-18)
[2022-04-06 16:03] LABS: ALANINE AMINOTRANSFERASE 16 U/L (12-78); ALBUMIN 3.9 g/dL (3.4-5.0); ALKALINE PHOSPHATASE 98 U/L (46-116); ASPARTATE AMINOTRANSFERASE 16 U/L (15-37); BILIRUBIN,TOTAL 0.5 mg/dL (0.1-1.0); TOTAL PROTEIN, SERUM 7.6 g/dL (6.4-8.2)
[2022-04-06 16:05] LABS: VALPROIC ACID < 3 mcg/mL (50-100)
[2022-04-06] MEDS ORDERED: OLANZapine 5 MG TABLET PO ONE (16:15)
[2022-04-06] MEDS ORDERED: LORazepam 1 MG TABLET PO ONE (16:15)
[2022-04-06] MEDS ORDERED: OLANZapine 5 MG RAPDIS TABLET PO PRN (17:15)
[2022-04-06] MEDS ORDERED: ZOLPIDEM TARTRATE 10 MG TABLET PO PRN (17:15)
[2022-04-06 17:28] LABS: COVID AG,FIA SOURCE NASOPHARYNGEAL
[2022-04-06 18:26] LABS: AMPHET/METH SCREEN,URINE NEGATIVE (NEGATIVE); BARBITURATE SCREEN, URINE NEGATIVE (NEGATIVE); BENZODIAZEPINES SCREEN,URINE NEGATIVE (NEGATIVE); CANNABINOID SCREEN,URINE NEGATIVE (NEGATIVE); COCAINE SCREEN,URINE NEGATIVE (NEGATIVE); METHADONE SCREEN, URINE NEGATIVE (NEGATIVE); OPIATE SCREEN,URINE NEGATIVE (NEGATIVE); PHENCYCLIDINE SCREEN,URINE NEGATIVE (NEGATIVE)
[2022-04-07 00:52] VITALS: BP 112/60
[2022-04-07] MEDS ORDERED: INFLUENZA VIRUS VACCINE QVS 2022-23 (6MO+)/PF 60 MCG/0.5 ML SYRINGE IM. ONE (04:30)
[2022-04-07] MEDS ORDERED: PNEUMOCOCCAL VACCINE POLYVALENT 0.5 ML VIAL [PPSV23] IM. ONE (04:30)
[2022-04-07 08:14] VITALS: BP 134/90
[2022-04-07] MEDS: CARBIDOPA/LEVODOPA 25-100 MG TABLET PO SCH ×3 (09:01→17:12)
[2022-04-07] MEDS: OMEPRAZOLE 20 MG CAPSULE PO SCH (09:02)
[2022-04-07] MEDS: OLANZapine 5 MG RAPDIS TABLET PO SCH ×2 (09:03→20:42)
[2022-04-07 16:35] VITALS: BP 125/84
[2022-04-08] MEDS: LORazepam 2 MG TABLET PO PRN (03:18)
[2022-04-08] MEDS: CARBIDOPA/LEVODOPA 25-100 MG TABLET PO SCH ×3 (08:57→17:29)
[2022-04-08] MEDS: OLANZapine 5 MG RAPDIS TABLET PO SCH ×2 (08:57→20:31)
[2022-04-08] MEDS: OMEPRAZOLE 20 MG CAPSULE PO SCH (08:57)
[2022-04-08] MEDS: HYDROCORTISONE 1% 30 GM CREAM TP SCH (08:58)
[2022-04-08] MEDS ORDERED: PETROLATUM,WHITE 28 GM JELLY TP PRN (10:15)
[2022-04-08] MEDS ORDERED: ONDANSETRON HCL 4 MG TABLET PO PRN (10:15)
[2022-04-08] MEDS ORDERED: ACETAMINOPHEN 325 MG TABLET PO PRN (10:15)
[2022-04-08] MEDS ORDERED: CloNIDine HCL 0.1 MG TABLET PO PRN (10:15)
[2022-04-08] MEDS ORDERED: IBUPROFEN 400 MG TABLET PO PRN (10:15)
[2022-04-08] MEDS ORDERED: NICOTINE 14 MG/24 HOUR PATCH TD PRN (10:15)
[2022-04-08] MEDS ORDERED: GuaiFENesin/D-METHORPHAN [SUGAR-FREE] 200-20MG/10 ML SYRUP UDCUP PO PRN (10:15)
[2022-04-08] MEDS ORDERED: MAGNESIUM HYDROXIDE SUSPENSION 30 ML UDCUP PO PRN (10:15)
[2022-04-08] MEDS ORDERED: DOCUSATE SODIUM 100 MG CAPSULE PO PRN (10:15)
[2022-04-08] MEDS ORDERED: ALBUTEROL SULFATE HFA 90 MCG/PUFF 8 GM INHALER IH PRN (10:15)
[2022-04-08] MEDS ORDERED: LOPERAMIDE HCL 2 MG CAPSULE PO PRN (10:15)
[2022-04-08] MEDS ORDERED: MAG HYDROX/AL HYDROX/SIMETH ES 30 ML SUSPENSION UDCUP PO PRN (10:15)
[2022-04-08] MEDS: LORazepam 0.5 MG TABLET PO SCH (20:31)
[2022-04-08] MEDS: MELATONIN 5 MG TABLET PO SCH (20:31)
[2022-04-09 08:52] VITALS: BP 133/73
[2022-04-09] MEDS: OMEPRAZOLE 20 MG CAPSULE PO SCH (09:29)
[2022-04-09] MEDS: CARBIDOPA/LEVODOPA 25-100 MG TABLET PO SCH ×3 (09:30→16:58)
[2022-04-09] MEDS: OLANZapine 5 MG RAPDIS TABLET PO SCH ×2 (09:30→20:36)
[2022-04-09] MEDS: HYDROCORTISONE 1% 30 GM CREAM TP SCH (09:30)
[2022-04-09 16:07] VITALS: BP 136/90
[2022-04-09] MEDS: LORazepam 0.5 MG TABLET PO SCH (20:36)
[2022-04-09] MEDS: MELATONIN 5 MG TABLET PO SCH (20:36)
[2022-04-09] MEDS: LORazepam 2 MG TABLET PO PRN (23:15)
[2022-04-10 08:30] VITALS: BP 143/86
[2022-04-10] MEDS: OMEPRAZOLE 20 MG CAPSULE PO SCH (10:04)
[2022-04-10] MEDS: CARBIDOPA/LEVODOPA 25-100 MG TABLET PO SCH ×3 (10:04→17:01)
[2022-04-10] MEDS: HYDROCORTISONE 1% 30 GM CREAM TP SCH (10:05)
[2022-04-10] MEDS: OLANZapine 5 MG RAPDIS TABLET PO SCH ×2 (10:05→20:47)
[2022-04-10 17:45] VITALS: BP 109/66
[2022-04-10 20:30] VITALS: BP 129/64
[2022-04-10] MEDS: LORazepam 0.5 MG TABLET PO SCH (20:47)
[2022-04-10] MEDS: MELATONIN 5 MG TABLET PO SCH (20:47)
[2022-04-11] MEDS: CARBIDOPA/LEVODOPA 25-100 MG TABLET PO SCH ×3 (09:14→16:44)
[2022-04-11] MEDS: OMEPRAZOLE 20 MG CAPSULE PO SCH (09:14)
[2022-04-11] MEDS: OLANZapine 5 MG RAPDIS TABLET PO SCH ×2 (09:14→20:29)
[2022-04-11] MEDS: HYDROCORTISONE 1% 30 GM CREAM TP SCH (09:15)
[2022-04-11 16:22] VITALS: BP 129/61
[2022-04-11] MEDS: MELATONIN 5 MG TABLET PO SCH (20:28)
[2022-04-11] MEDS: LORazepam 0.5 MG TABLET PO SCH (20:28)
[2022-04-11 20:35] VITALS: BP 130/73
[2022-04-12 08:36] LABS: COVID AG,FIA SOURCE NASAL SWAB
[2022-04-12] MEDS: OMEPRAZOLE 20 MG CAPSULE PO SCH (10:29)
[2022-04-12] MEDS: CARBIDOPA/LEVODOPA 25-100 MG TABLET PO SCH ×3 (10:30→16:45)
[2022-04-12] MEDS: OLANZapine 5 MG RAPDIS TABLET PO SCH ×2 (10:30→20:10)
[2022-04-12] MEDS: HYDROCORTISONE 1% 30 GM CREAM TP SCH (10:30)
[2022-04-12] MEDS: LORazepam 0.5 MG TABLET PO SCH (20:09)
[2022-04-12] MEDS: MELATONIN 5 MG TABLET PO SCH (20:09)
[2022-04-12 21:00] VITALS: BP 107/70
[2022-04-13 08:00] VITALS: BP 101/66
[2022-04-13] MEDS: OLANZapine 5 MG RAPDIS TABLET PO SCH ×2 (08:57→20:47)
[2022-04-13] MEDS: HYDROCORTISONE 1% 30 GM CREAM TP SCH (08:57)
[2022-04-13] MEDS: CARBIDOPA/LEVODOPA 25-100 MG TABLET PO SCH ×3 (08:57→17:02)
[2022-04-13] MEDS: OMEPRAZOLE 20 MG CAPSULE PO SCH (08:57)
[2022-04-13] MEDS: LORazepam 0.5 MG TABLET PO SCH (20:47)
[2022-04-13] MEDS: MELATONIN 5 MG TABLET PO SCH (20:47)
[2022-04-13 21:07] VITALS: BP 135/91
[2022-04-14] MEDS: CARBIDOPA/LEVODOPA 25-100 MG TABLET PO SCH ×3 (08:19→16:44)
[2022-04-14] MEDS: OLANZapine 5 MG RAPDIS TABLET PO SCH ×2 (08:19→20:49)
[2022-04-14] MEDS: OMEPRAZOLE 20 MG CAPSULE PO SCH (08:19)
[2022-04-14] MEDS: HYDROCORTISONE 1% 30 GM CREAM TP SCH (09:16)
[2022-04-14 16:13] VITALS: BP 133/82
[2022-04-14] MEDS: MELATONIN 5 MG TABLET PO SCH (20:49)
[2022-04-14] MEDS: LORazepam 0.5 MG TABLET PO SCH (20:49)
[2022-04-15] MEDS: CARBIDOPA/LEVODOPA 25-100 MG TABLET PO SCH ×3 (10:06→17:07)
[2022-04-15] MEDS: HYDROCORTISONE 1% 30 GM CREAM TP SCH (10:06)
[2022-04-15] MEDS: OMEPRAZOLE 20 MG CAPSULE PO SCH (10:06)
[2022-04-15] MEDS: OLANZapine 5 MG RAPDIS TABLET PO SCH ×2 (10:06→20:29)
[2022-04-15 16:24] VITALS: BP 131/81
[2022-04-15] MEDS: MELATONIN 5 MG TABLET PO SCH (20:29)
[2022-04-15] MEDS: LORazepam 0.5 MG TABLET PO SCH (20:29)
[2022-04-15 21:12] VITALS: BP 123/83
[2022-04-16] MEDS: OMEPRAZOLE 20 MG CAPSULE PO SCH (08:44)
[2022-04-16] MEDS: CARBIDOPA/LEVODOPA 25-100 MG TABLET PO SCH ×3 (08:44→17:50)
[2022-04-16] MEDS: OLANZapine 5 MG RAPDIS TABLET PO SCH ×2 (08:44→21:24)
[2022-04-16] MEDS: HYDROCORTISONE 1% 30 GM CREAM TP SCH (08:44)
[2022-04-16] MEDS: LORazepam 0.5 MG TABLET PO SCH (21:24)
[2022-04-16] MEDS: MELATONIN 5 MG TABLET PO SCH (21:25)
[2022-04-17] MEDS: OLANZapine 5 MG RAPDIS TABLET PO SCH ×2 (10:06→20:57)
[2022-04-17] MEDS: CARBIDOPA/LEVODOPA 25-100 MG TABLET PO SCH ×3 (10:07→18:24)
[2022-04-17] MEDS: OMEPRAZOLE 20 MG CAPSULE PO SCH (10:07)
[2022-04-17] MEDS: HYDROCORTISONE 1% 30 GM CREAM TP SCH (10:07)
[2022-04-17 16:27] VITALS: BP 128/82
[2022-04-17 20:49] VITALS: BP 113/82
[2022-04-17] MEDS: MELATONIN 5 MG TABLET PO SCH (20:57)
[2022-04-17] MEDS: LORazepam 0.5 MG TABLET PO SCH (20:57)
[2022-04-18] MEDS: OLANZapine 5 MG RAPDIS TABLET PO SCH ×2 (09:03→21:06)
[2022-04-18] MEDS: CARBIDOPA/LEVODOPA 25-100 MG TABLET PO SCH ×3 (09:04→17:00)
[2022-04-18] MEDS: HYDROCORTISONE 1% 30 GM CREAM TP SCH (09:04)
[2022-04-18] MEDS: OMEPRAZOLE 20 MG CAPSULE PO SCH (09:06)
[2022-04-18 09:44] VITALS: BP 132/73
[2022-04-18 16:45] VITALS: BP 119/67
[2022-04-18] MEDS: LORazepam 0.5 MG TABLET PO SCH (21:06)
[2022-04-18] MEDS: MELATONIN 5 MG TABLET PO SCH (21:07)
[2022-04-19 06:37] LABS: COVID AG,FIA SOURCE NASAL SWAB
[2022-04-19 08:28] VITALS: BP 134/81
[2022-04-19] MEDS: HYDROCORTISONE 1% 30 GM CREAM TP SCH (09:00)
[2022-04-19] MEDS: CARBIDOPA/LEVODOPA 25-100 MG TABLET PO SCH ×3 (09:00→17:00)
[2022-04-19] MEDS: OLANZapine 5 MG RAPDIS TABLET PO SCH (09:00)
[2022-04-19] MEDS: OMEPRAZOLE 20 MG CAPSULE PO SCH (09:00)
[2022-04-19] MEDS ORDERED: LORA-999 PO (10:31)
[2022-04-19] MEDS ORDERED: CARB1TAB35 PO (10:31)
[2022-04-19] MEDS ORDERED: MELA5TAB40 PO (10:31)
[2022-04-19] MEDS ORDERED: OMEP20 PO (10:31)
[2022-04-19] MEDS ORDERED: OLAN5TAB94 PO (10:31)
== END 2022-04-19 18:05 | DRG 885 ==
LOC: EMS 14:36 → 3EX 23:00 → EMS 23:17
PROVIDERS: ADMIT Psychiatry & Neurology Psychiatry; ATTEND Psychiatry & Neurology Psychiatry
DX: F25.0 Schizoaffective disorder, bipolar type (principal); E78.5 Hyperlipidemia, unspecified; G20 Parkinson's disease; G47.00 Insomnia, unspecified; I10 Essential (primary) hypertension; D50.9 Iron deficiency anemia, unspecified; J44.9 Chronic obstructive pulmonary disease, unspecified; K21.9 Gastro-esophageal reflux disease without esophagitis; L21.9 Seborrheic dermatitis, unspecified; F41.9 Anxiety disorder, unspecified; Z20.822 Contact with and (suspected) exposure to COVID-19; M19.90 Unspecified osteoarthritis, unspecified site; Z79.899 Other long term (current) drug therapy
CPT/HCPCS: 80053; 80164; 80307; 85025; 87081; 99285; G0378; G0480; Q9967

== ENCOUNTER 2022-05-03 20:56 | Inpatient (IN) | payer MEDICARE, MEDICAID ==
[~2022-05-03] VITALS: Ht 157.5 cm; Wt 66.7 kg
[~2022-05-03 20:56] MED LIST changes: -BENZ1TAB96 PO; +CARB1TAB35 PO; -CARB1TAB36 PO; -DIVA-111 PO; -DSS100 PO; +LORA-999 PO; +MELA5TAB40 PO; -OLAN10TA74 PO; +OLAN5TAB94 PO
[2022-05-03 22:04] LABS: COVID AG,FIA SOURCE NASOPHARYNGEAL
[2022-05-04 00:56] VITALS: BP 133/90
[2022-05-04 01:21] VITALS: BP 133/90
[2022-05-04] MEDS ORDERED: ACETAMINOPHEN 325 MG TABLET PO PRN (06:45)
[2022-05-04] MEDS ORDERED: GuaiFENesin/D-METHORPHAN [SUGAR-FREE] 200-20MG/10 ML SYRUP UDCUP PO PRN (06:45)
[2022-05-04] MEDS ORDERED: ALBUTEROL SULFATE HFA 90 MCG/PUFF 8 GM INHALER IH PRN (06:45)
[2022-05-04] MEDS ORDERED: MAGNESIUM HYDROXIDE SUSPENSION 30 ML UDCUP PO PRN (06:45)
[2022-05-04] MEDS ORDERED: IBUPROFEN 400 MG TABLET PO PRN (06:45)
[2022-05-04] MEDS ORDERED: NICOTINE 14 MG/24 HOUR PATCH TD PRN (06:45)
[2022-05-04] MEDS ORDERED: DOCUSATE SODIUM 100 MG CAPSULE PO PRN (06:45)
[2022-05-04] MEDS ORDERED: MAG HYDROX/AL HYDROX/SIMETH ES 30 ML SUSPENSION UDCUP PO PRN (06:45)
[2022-05-04] MEDS ORDERED: ONDANSETRON HCL 4 MG TABLET PO PRN (06:45)
[2022-05-04] MEDS ORDERED: CloNIDine HCL 0.1 MG TABLET PO PRN (06:45)
[2022-05-04] MEDS ORDERED: LOPERAMIDE HCL 2 MG CAPSULE PO PRN (06:45)
[2022-05-04] MEDS ORDERED: PETROLATUM,WHITE 28 GM JELLY TP PRN (06:45)
[2022-05-04] MEDS: OLANZapine 5 MG RAPDIS TABLET PO SCH ×2 (08:45→21:02)
[2022-05-04] MEDS: CARBIDOPA/LEVODOPA 25-100 MG TABLET PO SCH ×3 (08:45→17:51)
[2022-05-04] MEDS: LORazepam 2 MG TABLET PO PRN (08:49)
[2022-05-04 09:16] VITALS: BP 129/63
[2022-05-04 16:00] VITALS: BP 118/68
[2022-05-04] MEDS ORDERED: MELATONIN 5 MG TABLET PO SCH (21:00)
[2022-05-04] MEDS: LORazepam 0.5 MG TABLET PO SCH (21:02)
[2022-05-04] MEDS: MELATONIN 5 MG TABLET PO SCH (21:02)
[2022-05-04 21:42] VITALS: BP 126/78
[2022-05-05 08:32] VITALS: BP 113/81
[2022-05-05] MEDS: OLANZapine 5 MG RAPDIS TABLET PO SCH ×2 (09:40→21:07)
[2022-05-05] MEDS: CARBIDOPA/LEVODOPA 25-100 MG TABLET PO SCH ×3 (09:40→16:33)
[2022-05-05] MEDS ORDERED: MAGNESIUM HYDROXIDE SUSPENSION 30 ML UDCUP PO PRN (10:30)
[2022-05-05] MEDS ORDERED: PETROLATUM,WHITE 28 GM JELLY TP PRN (10:30)
[2022-05-05] MEDS ORDERED: GuaiFENesin/D-METHORPHAN [SUGAR-FREE] 200-20MG/10 ML SYRUP UDCUP PO PRN (10:30)
[2022-05-05] MEDS ORDERED: DOCUSATE SODIUM 100 MG CAPSULE PO PRN (10:30)
[2022-05-05] MEDS ORDERED: MAG HYDROX/AL HYDROX/SIMETH ES 30 ML SUSPENSION UDCUP PO PRN (10:30)
[2022-05-05] MEDS ORDERED: ONDANSETRON HCL 4 MG TABLET PO PRN (10:30)
[2022-05-05] MEDS ORDERED: LOPERAMIDE HCL 2 MG CAPSULE PO PRN (10:30)
[2022-05-05] MEDS ORDERED: IBUPROFEN 400 MG TABLET PO PRN (10:30)
[2022-05-05] MEDS ORDERED: ALBUTEROL SULFATE HFA 90 MCG/PUFF 8 GM INHALER IH PRN (10:30)
[2022-05-05] MEDS ORDERED: CloNIDine HCL 0.1 MG TABLET PO PRN (10:30)
[2022-05-05] MEDS ORDERED: ACETAMINOPHEN 325 MG TABLET PO PRN (10:30)
[2022-05-05] MEDS ORDERED: NICOTINE 14 MG/24 HOUR PATCH TD PRN (10:30)
[2022-05-05 16:42] VITALS: BP 107/63
[2022-05-05] MEDS: LORazepam 2 MG TABLET PO PRN (19:05)
[2022-05-05] MEDS: LORazepam 0.5 MG TABLET PO SCH (21:06)
[2022-05-05] MEDS: MELATONIN 5 MG TABLET PO SCH (21:06)
[2022-05-05 21:28] VITALS: BP 131/81
[2022-05-06] MEDS: OMEPRAZOLE 20 MG CAPSULE PO SCH (08:30)
[2022-05-06] MEDS: OLANZapine 5 MG RAPDIS TABLET PO SCH ×2 (08:30→20:45)
[2022-05-06] MEDS: CARBIDOPA/LEVODOPA 25-100 MG TABLET PO SCH ×3 (08:32→17:24)
[2022-05-06 08:51] VITALS: BP 136/82
[2022-05-06 16:42] VITALS: BP 141/93
[2022-05-06] MEDS: MUPIROCIN CALCIUM 2% 22 GM OINTMENT NASAL SCH (17:24)
[2022-05-06 20:29] VITALS: BP 138/93
[2022-05-06] MEDS: MELATONIN 5 MG TABLET PO SCH (20:46)
[2022-05-06] MEDS: LORazepam 0.5 MG TABLET PO SCH (20:46)
[2022-05-06] MEDS: HALOPERIDOL 5 MG TABLET PO PRN (20:46)
[2022-05-06] MEDS: ZOLPIDEM TARTRATE 10 MG TABLET PO PRN (21:45)
[2022-05-07 08:39] VITALS: BP 151/100
[2022-05-07] MEDS: CARBIDOPA/LEVODOPA 25-100 MG TABLET PO SCH ×3 (09:21→17:15)
[2022-05-07] MEDS: MUPIROCIN CALCIUM 2% 22 GM OINTMENT NASAL SCH ×2 (09:21→17:15)
[2022-05-07] MEDS: OMEPRAZOLE 20 MG CAPSULE PO SCH (09:22)
[2022-05-07] MEDS: OLANZapine 5 MG RAPDIS TABLET PO SCH ×2 (09:23→20:24)
[2022-05-07 16:17] VITALS: BP 113/73
[2022-05-07] MEDS: MELATONIN 5 MG TABLET PO SCH (20:24)
[2022-05-07] MEDS: LORazepam 0.5 MG TABLET PO SCH (20:25)
[2022-05-07 20:59] VITALS: BP 125/77
[2022-05-08] MEDS: OLANZapine 5 MG RAPDIS TABLET PO SCH ×2 (08:13→20:39)
[2022-05-08] MEDS: MUPIROCIN CALCIUM 2% 22 GM OINTMENT NASAL SCH ×2 (08:13→15:54)
[2022-05-08] MEDS: CARBIDOPA/LEVODOPA 25-100 MG TABLET PO SCH ×3 (08:13→15:54)
[2022-05-08] MEDS: OMEPRAZOLE 20 MG CAPSULE PO SCH (08:13)
[2022-05-08 10:28] VITALS: BP 145/87
[2022-05-08 16:43] VITALS: BP 108/70
[2022-05-08] MEDS: LORazepam 0.5 MG TABLET PO SCH (20:37)
[2022-05-08] MEDS: HALOPERIDOL 5 MG TABLET PO PRN (20:37)
[2022-05-08] MEDS: MELATONIN 5 MG TABLET PO SCH (20:38)
[2022-05-08] MEDS: ZOLPIDEM TARTRATE 10 MG TABLET PO PRN (21:55)
[2022-05-08 22:34] VITALS: BP 135/87
[2022-05-09 06:33] LABS: COVID AG,FIA SOURCE NASAL SWAB
[2022-05-09 08:00] VITALS: BP 90/52
[2022-05-09] MEDS: MUPIROCIN CALCIUM 2% 22 GM OINTMENT NASAL SCH ×2 (09:00→17:00)
[2022-05-09] MEDS: CARBIDOPA/LEVODOPA 25-100 MG TABLET PO SCH ×3 (10:33→16:50)
[2022-05-09] MEDS: OMEPRAZOLE 20 MG CAPSULE PO SCH (10:34)
[2022-05-09] MEDS: OLANZapine 5 MG RAPDIS TABLET PO SCH ×2 (10:34→20:28)
[2022-05-09 16:27] VITALS: BP 120/69
[2022-05-09] MEDS: LORazepam 0.5 MG TABLET PO SCH (20:27)
[2022-05-09] MEDS: MELATONIN 5 MG TABLET PO SCH (20:28)
[2022-05-09 20:54] VITALS: BP 123/95
[2022-05-10 09:17] VITALS: BP 134/76
[2022-05-10] MEDS: OMEPRAZOLE 20 MG CAPSULE PO SCH (09:50)
[2022-05-10] MEDS: CARBIDOPA/LEVODOPA 25-100 MG TABLET PO SCH ×3 (09:50→16:54)
[2022-05-10] MEDS: OLANZapine 5 MG RAPDIS TABLET PO SCH ×2 (09:51→20:32)
[2022-05-10] MEDS: MUPIROCIN CALCIUM 2% 22 GM OINTMENT NASAL SCH ×2 (09:55→16:19)
[2022-05-10 16:17] VITALS: BP 105/60
[2022-05-10] MEDS: MELATONIN 5 MG TABLET PO SCH (20:32)
[2022-05-10] MEDS: LORazepam 0.5 MG TABLET PO SCH (20:32)
[2022-05-10 21:11] VITALS: BP 124/75
[2022-05-11 08:02] VITALS: BP 132/96
[2022-05-11] MEDS: OMEPRAZOLE 20 MG CAPSULE PO SCH (08:34)
[2022-05-11] MEDS: MUPIROCIN CALCIUM 2% 22 GM OINTMENT NASAL SCH (08:34)
[2022-05-11] MEDS: OLANZapine 5 MG RAPDIS TABLET PO SCH ×2 (08:35→20:35)
[2022-05-11] MEDS: CARBIDOPA/LEVODOPA 25-100 MG TABLET PO SCH ×3 (08:35→16:29)
[2022-05-11 16:35] VITALS: BP 120/83
[2022-05-11 20:07] VITALS: BP 132/82
[2022-05-11] MEDS: MELATONIN 5 MG TABLET PO SCH (20:35)
[2022-05-11] MEDS: LORazepam 0.5 MG TABLET PO SCH (20:35)
[2022-05-12 09:15] VITALS: BP 133/88
[2022-05-12] MEDS: CARBIDOPA/LEVODOPA 25-100 MG TABLET PO SCH ×3 (11:21→17:55)
[2022-05-12] MEDS: OMEPRAZOLE 20 MG CAPSULE PO SCH (11:21)
[2022-05-12] MEDS: OLANZapine 5 MG RAPDIS TABLET PO SCH ×2 (11:22→20:53)
[2022-05-12 16:29] VITALS: BP 139/86
[2022-05-12] MEDS: MELATONIN 5 MG TABLET PO SCH (20:53)
[2022-05-12] MEDS: LORazepam 0.5 MG TABLET PO SCH (20:53)
[2022-05-12 22:05] VITALS: BP 136/82
[2022-05-12] MEDS: ZOLPIDEM TARTRATE 10 MG TABLET PO PRN (23:04)
[2022-05-13] MEDS: OMEPRAZOLE 20 MG CAPSULE PO SCH (08:32)
[2022-05-13] MEDS: CARBIDOPA/LEVODOPA 25-100 MG TABLET PO SCH ×3 (08:32→16:03)
[2022-05-13] MEDS: OLANZapine 5 MG RAPDIS TABLET PO SCH ×2 (08:33→22:00)
[2022-05-13 09:08] VITALS: BP 142/89
[2022-05-13 16:08] VITALS: BP 133/86
[2022-05-13 21:28] VITALS: BP 125/78
[2022-05-13] MEDS: LORazepam 0.5 MG TABLET PO SCH (22:00)
[2022-05-13] MEDS: MELATONIN 5 MG TABLET PO SCH (22:00)
[2022-05-14] MEDS: OLANZapine 5 MG RAPDIS TABLET PO SCH ×2 (08:44→21:11)
[2022-05-14] MEDS: OMEPRAZOLE 20 MG CAPSULE PO SCH (08:44)
[2022-05-14] MEDS: CARBIDOPA/LEVODOPA 25-100 MG TABLET PO SCH ×3 (08:44→16:29)
[2022-05-14 16:57] VITALS: BP_SYST 124; BP_SYST 141; BP_DIAS 72; BP_DIAS 74
[2022-05-14 20:08] VITALS: BP 142/84
[2022-05-14] MEDS: MELATONIN 5 MG TABLET PO SCH (21:11)
[2022-05-14] MEDS: LORazepam 0.5 MG TABLET PO SCH (21:11)
[2022-05-15 08:03] VITALS: BP 142/93
[2022-05-15] MEDS: OMEPRAZOLE 20 MG CAPSULE PO SCH (08:57)
[2022-05-15] MEDS: OLANZapine 5 MG RAPDIS TABLET PO SCH ×2 (08:58→20:19)
[2022-05-15] MEDS: CARBIDOPA/LEVODOPA 25-100 MG TABLET PO SCH ×3 (08:59→16:29)
[2022-05-15 16:03] VITALS: BP 131/83
[2022-05-15] MEDS: LORazepam 0.5 MG TABLET PO SCH (20:19)
[2022-05-15] MEDS: MELATONIN 5 MG TABLET PO SCH (20:19)
[2022-05-16] MEDS: OMEPRAZOLE 20 MG CAPSULE PO SCH (08:41)
[2022-05-16] MEDS: CARBIDOPA/LEVODOPA 25-100 MG TABLET PO SCH ×3 (08:41→16:03)
[2022-05-16] MEDS: OLANZapine 5 MG RAPDIS TABLET PO SCH ×2 (08:42→21:46)
[2022-05-16 08:52] VITALS: BP 144/84
[2022-05-16 16:07] VITALS: BP 122/77
[2022-05-16 20:38] VITALS: BP 138/85
[2022-05-16] MEDS: LORazepam 0.5 MG TABLET PO SCH (21:45)
[2022-05-16] MEDS: MELATONIN 5 MG TABLET PO SCH (21:45)
[2022-05-17] MEDS: ZOLPIDEM TARTRATE 10 MG TABLET PO PRN (00:34)
[2022-05-17 09:00] VITALS: BP 125/69
[2022-05-17] MEDS: CARBIDOPA/LEVODOPA 25-100 MG TABLET PO SCH ×3 (09:34→17:06)
[2022-05-17] MEDS: OLANZapine 5 MG RAPDIS TABLET PO SCH ×2 (09:34→21:12)
[2022-05-17] MEDS: OMEPRAZOLE 20 MG CAPSULE PO SCH (09:34)
[2022-05-17 20:33] VITALS: BP 139/81
[2022-05-17] MEDS: MELATONIN 5 MG TABLET PO SCH (21:12)
[2022-05-17] MEDS: LORazepam 0.5 MG TABLET PO SCH (21:12)
[2022-05-18 07:44] LABS: ALANINE AMINOTRANSFERASE 33 U/L (12-78); ALBUMIN 3.6 g/dL (3.4-5.0); ALKALINE PHOSPHATASE 101 U/L (46-116); ANION GAP 3 mmol/L (8-16); ASPARTATE AMINOTRANSFERASE 21 U/L (15-37); BILIRUBIN,TOTAL 0.4 mg/dL (0.1-1.0); CALCIUM, TOTAL 9.2 mg/dL (8.8-10.5); CARBON DIOXIDE 33 mmol/L (22-29); CHLORIDE 103 mmol/L (98-107); CREATININE 0.85 mg/dL (0.60-1.30); GLOMERULAR FILTR. RATE CALC > 60 mL/min (>60); GLUCOSE,RANDOM 107 mg/dL (70-110); POTASSIUM 4.5 mmol/L (3.5-5.1); SODIUM SERUM 139 mmol/L (136-145); TOTAL PROTEIN, SERUM 7.3 g/dL (6.4-8.2); UREA NITROGEN, BLOOD 19 mg/dL (7-18)
[2022-05-18] MEDS: OLANZapine 5 MG RAPDIS TABLET PO SCH ×2 (08:34→21:09)
[2022-05-18] MEDS: CARBIDOPA/LEVODOPA 25-100 MG TABLET PO SCH ×3 (08:34→16:14)
[2022-05-18] MEDS: OMEPRAZOLE 20 MG CAPSULE PO SCH (08:34)
[2022-05-18 08:51] VITALS: BP 126/84
[2022-05-18 16:51] VITALS: BP 135/83
[2022-05-18 20:27] VITALS: BP 126/82
[2022-05-18] MEDS: LORazepam 0.5 MG TABLET PO SCH (21:09)
[2022-05-18] MEDS: MELATONIN 5 MG TABLET PO SCH (21:09)
[2022-05-19 07:42] LABS: COVID AG,FIA SOURCE NASAL SWAB
[2022-05-19 08:48] VITALS: BP 126/83
[2022-05-19] MEDS: OLANZapine 5 MG RAPDIS TABLET PO SCH ×2 (09:04→20:44)
[2022-05-19] MEDS: OMEPRAZOLE 20 MG CAPSULE PO SCH (09:05)
[2022-05-19] MEDS: CARBIDOPA/LEVODOPA 25-100 MG TABLET PO SCH ×3 (09:05→16:39)
[2022-05-19 16:08] VITALS: BP 147/71
[2022-05-19 20:23] VITALS: BP 133/77
[2022-05-19] MEDS: LORazepam 0.5 MG TABLET PO SCH (20:44)
[2022-05-19] MEDS: MELATONIN 5 MG TABLET PO SCH (20:44)
[2022-05-20] MEDS: CARBIDOPA/LEVODOPA 25-100 MG TABLET PO SCH ×3 (08:42→16:37)
[2022-05-20] MEDS: OLANZapine 5 MG RAPDIS TABLET PO SCH ×2 (08:43→20:46)
[2022-05-20] MEDS: OMEPRAZOLE 20 MG CAPSULE PO SCH (08:43)
[2022-05-20 09:20] VITALS: BP 143/87
[2022-05-20 16:03] VITALS: BP 133/65
[2022-05-20] MEDS: LORazepam 0.5 MG TABLET PO SCH (20:46)
[2022-05-20] MEDS: MELATONIN 5 MG TABLET PO SCH (20:46)
[2022-05-20 20:51] VITALS: BP 114/74
[2022-05-20 20:54] VITALS: BP 117/74
[2022-05-21 08:51] VITALS: BP 119/76
[2022-05-21] MEDS: OMEPRAZOLE 20 MG CAPSULE PO SCH (09:08)
[2022-05-21] MEDS: CARBIDOPA/LEVODOPA 25-100 MG TABLET PO SCH ×3 (09:09→17:09)
[2022-05-21] MEDS: OLANZapine 5 MG RAPDIS TABLET PO SCH ×2 (09:09→20:36)
[2022-05-21 16:07] VITALS: BP 118/82
[2022-05-21] MEDS: MELATONIN 5 MG TABLET PO SCH (20:36)
[2022-05-21] MEDS: LORazepam 0.5 MG TABLET PO SCH (20:36)
[2022-05-21 20:44] VITALS: BP 129/83
[2022-05-22] MEDS: CARBIDOPA/LEVODOPA 25-100 MG TABLET PO SCH ×3 (08:20→16:20)
[2022-05-22] MEDS: OLANZapine 5 MG RAPDIS TABLET PO SCH ×2 (08:21→20:37)
[2022-05-22] MEDS: OMEPRAZOLE 20 MG CAPSULE PO SCH (08:21)
[2022-05-22 09:50] VITALS: BP 119/70
[2022-05-22 16:57] VITALS: BP 122/78
[2022-05-22 20:26] VITALS: BP 143/82
[2022-05-22] MEDS: MELATONIN 5 MG TABLET PO SCH (20:36)
[2022-05-22] MEDS: LORazepam 0.5 MG TABLET PO SCH (20:37)
[2022-05-22] MEDS: HALOPERIDOL 5 MG TABLET PO PRN (20:37)
[2022-05-22] MEDS: ZOLPIDEM TARTRATE 10 MG TABLET PO PRN (21:50)
[2022-05-23 08:45] VITALS: BP 135/80
[2022-05-23] MEDS: CARBIDOPA/LEVODOPA 25-100 MG TABLET PO SCH ×3 (09:13→17:20)
[2022-05-23] MEDS: OMEPRAZOLE 20 MG CAPSULE PO SCH (09:13)
[2022-05-23] MEDS: OLANZapine 5 MG RAPDIS TABLET PO SCH ×2 (09:14→20:32)
[2022-05-23 16:00] VITALS: BP 130/73
[2022-05-23] MEDS: MELATONIN 5 MG TABLET PO SCH (20:31)
[2022-05-23] MEDS: LORazepam 0.5 MG TABLET PO SCH (20:32)
[2022-05-23] MEDS ORDERED: CARB1TAB35 PO (21:22)
[2022-05-23] MEDS ORDERED: LORA-999 PO (21:22)
[2022-05-23] MEDS ORDERED: OMEP20 PO (21:22)
[2022-05-23] MEDS ORDERED: OLAN5TAB94 PO (21:22)
[2022-05-23] MEDS ORDERED: MELA5TAB40 PO (21:22)
[2022-05-23 21:35] VITALS: BP 122/72
[2022-05-24] MEDS: ZOLPIDEM TARTRATE 10 MG TABLET PO PRN (00:15)
[2022-05-24 08:54] VITALS: BP 113/81
[2022-05-24] MEDS: OMEPRAZOLE 20 MG CAPSULE PO SCH (08:55)
[2022-05-24] MEDS: OLANZapine 5 MG RAPDIS TABLET PO SCH (08:55)
[2022-05-24] MEDS: CARBIDOPA/LEVODOPA 25-100 MG TABLET PO SCH (08:56)
== END 2022-05-24 10:09 | DRG 885 ==
LOC: EMS 20:56 → UNDOADMIN 22:37 → 3EX 22:37 → 3EI 05-19 18:26 → 3EX 05-20 15:40
PROVIDERS: ADMIT Psychiatry & Neurology Psychiatry; ATTEND Psychiatry & Neurology Psychiatry
DX: F25.0 Schizoaffective disorder, bipolar type (principal); D50.9 Iron deficiency anemia, unspecified; E78.5 Hyperlipidemia, unspecified; G20 Parkinson's disease; G47.00 Insomnia, unspecified; I10 Essential (primary) hypertension; J44.9 Chronic obstructive pulmonary disease, unspecified; M19.09 Primary osteoarthritis, other specified site; K21.9 Gastro-esophageal reflux disease without esophagitis; F41.9 Anxiety disorder, unspecified; Z20.822 Contact with and (suspected) exposure to COVID-19; Z59.00 Homelessness unspecified
CPT/HCPCS: 80053; 87081; 99285; G0378; Q9967